=== PATIENT | female | born 1950 | race Caucasian/White ===

== ENCOUNTER 2020-07-04 06:45 | Outpatient (REF) | payer MEDICARE, OTHER, SELFPAY ==
[2020-07-04 11:38] LABS: Alanine Aminotransferase 24 U/L (0-31); Aspartate Amino Transferase 20 U/L (5-31); Cholesterol 218 mg/dL; HDL Cholesterol 52 mg/dL; LDL Cholesterol Calculated 135 mg/dl; Triglycerides 155 mg/dL
[2020-07-04 11:56] LABS: Anion Gap 16 (12-20); Blood Urea Nitrogen 23 mg/dL (9-16); Calcium 9.6 mg/dL (8.4-10.2); Carbon Dioxide 24 mmol/L (22-29); Chloride 103 mmol/L (96-108); Estimated Glomerular Filt Rate 37; Phosphorus 3.2 mg/dL (2.7-4.5); Potassium 4.6 mmol/l (3.3-5.1); Sodium 138 mmol/L (135-145)
[2020-07-04 13:11] LABS: Renal w Reflex Lab Use Only Order verified
== END 2020-07-04 06:46 | disposition home or self-care (01) ==
LOC: HO.HMGCLDS 06:45
PROVIDERS: PCP Internal Medicine; Visit Provider Internal Medicine Nephrology
DX: G89.29 Other chronic pain (principal); M79.10 Myalgia, unspecified site; E78.5 Hyperlipidemia, unspecified; I12.9 Hypertensive chronic kidney disease with stage 1 through stage 4 chronic kidney disease, or unspecified chronic kidney disease; N18.9 Chronic kidney disease, unspecified
CPT/HCPCS: 80051; 80061; 82310; 82550; 82565; 84100; 84450; 84460; 84520

== ENCOUNTER 2020-08-03 08:07 | Outpatient (REF) | payer MEDICARE, OTHER, SELFPAY ==
--- NOTE | 2020-08-03 08:11 | MM_ITS ---
EXAMINATION: MM SCREENING DIGITAL BREAST TOMOSYNTHESIS, BILATERAL CLINICAL INFORMATION: Screening. Asymptomatic. The lifetime risk of breast cancer based on the Tyrer-Cuzick Model is 3.5%. COMPARISON: Mammography: July 29, 2019 and studies dating back to July 17, 2011 TECHNIQUE: Digital breast tomosynthesis is performed in both the craniocaudal and mediolateral oblique views along with computer-aided detection (CAD). Synthesized 2D images are generated from the tomosynthesis. FINDINGS: There are scattered areas of fibroglandular density (ACR BI-RADS breast composition Category b). There are no significant masses, abnormal calcifications, or other abnormalities. MM/MM tomosynthesis screening BI IMPRESSION: There are no significant changes from prior study. ASSESSMENT: BI-RADS 1: Negative RECOMMENDATION: Routine annual mammography screening. This patient's information was entered into a reminder system with a target due date for their next mammogram.
== END 2020-08-03 08:08 | disposition home or self-care (01) ==
LOC: HO.MAMMO 08:07
PROVIDERS: Visit Provider Internal Medicine
DX: Z12.31 Encounter for screening mammogram for malignant neoplasm of breast (principal)
CPT/HCPCS: 77063; 77067

== ENCOUNTER 2020-08-17 06:33 | Day surgery (SDC) | payer MEDICARE, OTHER, SELFPAY ==
[2020-08-09 14:42] VITALS: BMI 28.0
[2020-08-16 09:26] VITALS: BMI 27.1
--- NOTE | 2020-08-16 09:55 | P.CONAN_ITS ---
Documented by User: Julia Pena 08/16/20 09:58 HPI - Anesthesia Eval Consult details Narrative: 70yo F for Colonoscopy PMFSH Past Medical History Medical History Acquired hypothyroidism Chronic kidney disease, stage III (moderate) Dyslipidemia Essential hypertension Lumbar degenerative disc disease Osteopenia of left hip Postmenopausal syndrome Surgical menopause Trigeminal neuralgia Uterine fibroid Family History Family History Father HTN (hypertension) Heart disease DDD (degenerative disc disease) Myocardial infarction Mother Diabetes mellitus Colon cancer Arthritis Hot flashes Daughter Papillary thyroid carcinoma Paternal Aunt CVD (cardiovascular disease) History of heart attack Son No problems noted. Daughter No problems noted. Brother No problems noted. Brother No problems noted. Brother No problems noted. Sister No problems noted. Sister No problems noted. Sister No problems noted. Sister No problems noted. Sister No problems noted. Surgical History Surgical History H/O total hysterectomy with bilateral salpingo-oophorectomy (BSO) History of back surgery History of deviated nasal septum Vocal cord cyst Social History Social History Alcohol intake: never Smoking Status: Never smoker Second Hand Smoke Exposure: No Use of substances other than those prescribed or required for medical reasons: No Advance Directives: No Advance Directives Information Provided: No Advance Directives on File: No Meds Allergies Allergy/AdvReac Type Severity Reaction Status Date / Time egg Allergy Intermediate + SKIN TEST Verified 07/11/20 08:06 milk [MILK] Allergy Unknown + SKIN TEST Verified 07/11/20 08:06 simvastatin AdvReac Unknown muscle pain Verified 07/11/20 08:06 ENVIRONMENTAL Allergy Intermediate HAYFEVER Uncoded 04/28/20 14:51 SENSATIVE TO MEDS AdvReac Unknown NAUSEA & Uncoded 04/28/20 14:51 VOMITING Home Medications Medication Instructions Recorded Confirmed Type cholecalciferol (vitamin D3) 25 25 mcg PO DAILY 07/11/20 08/09/20 History mcg (1,000 unit) capsule coenzyme Q10 100 mg capsule 100 mg PO DAILY 07/11/20 08/09/20 History flu vacc (66yr IM 07/11/20 07/11/20 History up)-MF59C(PF) 60 mcg(15 mcgx4)/0.5 mL IM syringe oxcarbazepine 150 mg tablet 150 mg PO DAILY 07/11/20 08/09/20 History Exam Exam Date and Time: August 16, 2020 0955 Height,Weight and Vital Signs: Height 5 ft 3 in Weight 69.4 kg Pertinent Lab Results Pertinent Lab Results: Laboratory Tests 02/03/20 07/04/20 14:29 07:07 WBC 5.6 Hgb 13.5 Hct 41.2 Plt Count 305 Sodium 138 Potassium 4.6 Chloride 103 Carbon Dioxide 24 BUN 23 H Creatinine 1.42 H Laboratory Tests 01/06/20 03/24/20 04/11/20 07:37 07:40 08:12 Creatinine 1.48 H 1.44 H 1.61 H 05/03/20 07/04/20 07:45 07:07 Creatinine 1.41 H 1.42 H Assessment and Plan Assessment Anesthesia Assessment: Chart Reviewed Documented by User: Chinyere Vazquez 08/17/20 07:14 [facility] Past Medical History Medical History Acquired hypothyroidism Chronic kidney disease, stage III (moderate) Dyslipidemia Essential hypertension Lumbar degenerative disc disease Osteopenia of left hip Postmenopausal syndrome Surgical menopause Trigeminal neuralgia Uterine fibroid Family History Family History Father HTN (hypertension) Heart disease DDD (degenerative disc disease) Myocardial infarction Mother Diabetes mellitus Colon cancer Arthritis Hot flashes Daughter Papillary thyroid carcinoma Paternal Aunt CVD (cardiovascular disease) History of heart attack Son No problems noted. Daughter No problems noted. Brother No problems noted. Brother No problems noted. Brother No problems noted. Sister No problems noted. Sister No problems noted. Sister No problems noted. Sister No problems noted. Sister No problems noted. Surgical History Surgical History H/O total hysterectomy with bilateral salpingo-oophorectomy (BSO) History of back surgery History of deviated nasal septum Vocal cord cyst Social History Social History Alcohol intake: never Smoking Status: Never smoker Second Hand Smoke Exposure: No Use of substances other than those prescribed or required for medical reasons: No Advance Directives: No Advance Directives Information Provided: No Advance Directives on File: No Meds Allergies Allergy/AdvReac Type Severity Reaction Status Date / Time egg Allergy Intermediate + SKIN TEST Verified 07/11/20 08:06 milk [MILK] Allergy Unknown + SKIN TEST Verified 07/11/20 08:06 simvastatin AdvReac Unknown muscle pain Verified 07/11/20 08:06 ENVIRONMENTAL Allergy Intermediate HAYFEVER Uncoded 04/28/20 14:51 SENSATIVE TO MEDS AdvReac Unknown NAUSEA & Uncoded 04/28/20 14:51 VOMITING Home Medications Medication Instructions Recorded Confirmed Type cholecalciferol (vitamin D3) 25 25 mcg PO DAILY 07/11/20 08/09/20 History mcg (1,000 unit) capsule coenzyme Q10 100 mg capsule 100 mg PO DAILY 07/11/20 08/09/20 History flu vacc 2020-21(66yr IM 07/11/20 07/11/20 History up)-MF59C(PF) 60 mcg(15 mcgx4)/0.5 mL IM syringe oxcarbazepine 150 mg tablet 150 mg PO DAILY 07/11/20 08/09/20 History Exam Airway Mallampati Class: II (Caps lataerally) TM Dist: >3cm Neck ROM: Full Heart: RRR Lungs: CTA bL Assessment and Plan Final Anesthetic Review NPO: Yes (Sip water with meds) ASA Class: III Final Preanesthetic Review: No Changes in Pt Med Stat and Consent Obtained/Reviewed Patient Risk: Intermediate Procedure Risk: Intermediate Anesthetic Plan Anesthetic Plan: MAC: Disposition: Standard PACU
[2020-08-17 07:12] VITALS: BP 170/82; PULSE 90; RESP 16; TEMP 36.2; O2SAT 98
[2020-08-17] MEDS: Lactated Ringers 1,000 ML 50 ML IVCONT (07:23)
[2020-08-17 08:25] VITALS: BP 118/69; PULSE 72; RESP 16; TEMP 37.1; O2SAT 98
--- NOTE | 2020-08-17 08:29 | PM.OP ---
Brief Operative Note Date of Service: 08/17/20 Pre-op diagnosis: Screening, History of tubular adenoma Post-op diagnosis: same Procedure: Colonoscopy to the cecum Surgeon: David Gr Anesthesia: MAC Estimated blood loss (mL): 0 Pathology: none sent Condition: stable Disposition: PACU
[2020-08-17 08:40] VITALS: BP 118/82; PULSE 73; RESP 18; O2SAT 100
--- NOTE | 2020-08-17 08:53 | OP_ITS ---
SURGEON: David Gr MD INDICATIONS: The patient presents for followup of personal history of tubular adenomas of the colon and colorectal cancer screening. Full consent was obtained from her for this, including risks of bleeding and perforation. PREOPERATIVE DIAGNOSIS: POSTOPERATIVE DIAGNOSIS: PROCEDURE PERFORMED: ESTIMATED BLOOD LOSS: COMPLICATIONS: ANESTHESIA: Monitored anesthesia care. ASSISTANTS: SPECIMENS: PROCEDURE: Colonoscopy to cecum. PREOPERATIVE DIAGNOSES: Colorectal cancer screening, personal history of tubular adenoma of the colon, and family history of colon cancer. POSTOPERATIVE DIAGNOSES: Colorectal cancer screening, personal history of tubular adenoma of the colon, and family history of colon cancer, diverticulosis and internal hemorrhoids. DESCRIPTION OF PROCEDURE: The patient was placed in the left lateral decubitus position. The digital rectal exam revealed no abnormalities other than some external hemorrhoids. The Olympus video pediatric colonoscope was entered into the rectum and advanced easily to the cecum. Once in the cecum, I did identify normal-appearing cecal pouch with appendiceal orifice and a normal-appearing ileocecal valve. There was transillumination of light deep in the right lower quadrant. The entire cecum and ileocecal valve appeared normal. The scope was then slowly withdrawn assessing all mucosal surfaces carefully. Preparation was excellent. I did not visualize any sign of polyps, colitis, nor angiodysplasia. There was a mild amount of sigmoid diverticulosis. In the rectum, scope was retroflexed visualizing internal hemorrhoids, but no other pathology. The rectal mucosa appeared normal. The scope was straightened and withdrawn from the patient. She tolerated procedure well and was returned to recovery area in stable condition. IMPRESSION: 1. Sigmoid diverticulosis. 2. Internal and external hemorrhoids. PLAN: Given her previous history, I would recommend a followup colonoscopy in 5 years for further screening. She will otherwise see me on a p.r.n. basis. MD DRAGAN Yen/OSIRIS / [id number]
[2020-08-17 08:55] VITALS: BP 108/81; PULSE 71; RESP 20; TEMP 37; O2SAT 100
--- NOTE | 2020-08-17 09:11 | HO.POSTANES ---
Post Anesthesia Evaluation Post Anesthesia Evaluation Vital Signs: Vital Signs Temp Pulse Resp BP Pulse Ox 08/17/20 08:55 98.6 F 71 20 108/81 100 08/17/20 08:40 73 18 118/82 100 08/17/20 08:25 98.7 F 72 16 118/69 98 08/17/20 07:12 97.1 F 90 16 170/82 H 98 Anesthesia: Monitored Mental Status: Awake Pain Control: Satisfactory Nausea/Vomiting: None Hydration: Adequate Anesthesia-Related Issues: No Anes. Related Issues
== END 2020-08-17 09:13 | disposition home or self-care (01) ==
PROVIDERS: PCP Internal Medicine; Visit Provider Internal Medicine
PROC: 0DJD8ZZ Inspection of Lower Intestinal Tract, Via Natural or Artificial Opening Endoscopic (ICD-10-PCS; CPT 45378; principal; 2020-08-17 07:30)
DX: Z12.11 Encounter for screening for malignant neoplasm of colon (principal); Z86.010 Personal history of colon polyps; Z80.0 Family history of malignant neoplasm of digestive organs; K57.30 Diverticulosis of large intestine without perforation or abscess without bleeding; K64.8 Other hemorrhoids; K64.4 Residual hemorrhoidal skin tags; I12.9 Hypertensive chronic kidney disease with stage 1 through stage 4 chronic kidney disease, or unspecified chronic kidney disease; N18.30 Chronic kidney disease, stage 3 unspecified; G50.0 Trigeminal neuralgia; Z79.899 Other long term (current) drug therapy
CPT/HCPCS: G0105

== ENCOUNTER 2020-09-20 07:35 | Outpatient (REF) | payer MEDICARE, OTHER, SELFPAY ==
[2020-09-20 12:03] LABS: Alanine Aminotransferase 19 U/L (0-31); Aspartate Amino Transferase 19 U/L (5-31); Cholesterol 240 mg/dL; HDL Cholesterol 53 mg/dL; LDL Cholesterol Calculated 154 mg/dl; Triglycerides 166 mg/dL
[2020-09-20 12:04] LABS: Anion Gap 15 (12-20); Blood Urea Nitrogen 26 mg/dL (9-16); Calcium 9.6 mg/dL (8.4-10.2); Carbon Dioxide 27 mmol/L (22-29); Chloride 102 mmol/L (96-108); Estimated Glomerular Filt Rate 40; Phosphorus 3.4 mg/dL (2.7-4.5); Potassium 4.6 mmol/L (3.3-5.1); Sodium 139 mmol/L (135-145)
[2020-09-20 12:10] LABS: Vitamin D 25-OH Total 31.4 ng/mL (>30)
[2020-09-20 13:14] LABS: Renal w Reflex Lab Use Only Order verified
== END 2020-09-20 07:36 | disposition home or self-care (01) ==
LOC: HO.HMGCLDS 07:35
PROVIDERS: PCP Internal Medicine; Visit Provider Internal Medicine Nephrology
DX: E78.5 Hyperlipidemia, unspecified (principal); I12.9 Hypertensive chronic kidney disease with stage 1 through stage 4 chronic kidney disease, or unspecified chronic kidney disease; N18.9 Chronic kidney disease, unspecified; E89.40 Asymptomatic postprocedural ovarian failure; M85.852 Other specified disorders of bone density and structure, left thigh
CPT/HCPCS: 36415; 80051; 80061; 82306; 82310; 82565; 84100; 84450; 84460; 84520

== ENCOUNTER 2020-10-10 11:19 | Emergency (ER) | payer MEDICARE, OTHER, SELFPAY ==
--- NOTE | ~2020-10-10 | XR_ITS ---
EXAMINATION: XR CHEST CLINICAL INFORMATION: Shortness of breath COMPARISON: Previous chest x-ray February 2020 TECHNIQUE: Frontal view of the chest was obtained. FINDINGS: No significant abnormality is noted involving the heart, lungs, mediastinum, bony thorax or soft tissues. XR/XR chest 1V IMPRESSION: Unremarkable examination.
[2020-10-10 11:48] VITALS: BP 140/79; PULSE 85; RESP 18; TEMP 36.7; O2SAT 98; BMI 27.8
--- NOTE | 2020-10-10 11:57 | ED.SOB ---
HPI - SOB/Dyspnea General Chief Complaint: Dyspnea Stated Complaint: SOB Time Seen by Provider: 10/10/20 11:56 Source: patient Mode of arrival: ambulatory Limitations: no limitations History of Present Illness HPI Narrative: Pleasant 70-year-old female presenting ambulatory with past medical history as noted below including history of dyslipidemia, hypertension, acquired hypothyroidism currently on levothyroxine 25 mcg daily, degenerative disc disease, trigeminal neuralgia with surgical history of hysterectomy, back surgery states she had COVID-19 last October and since has had some regulation of medical issues and recently over past several months she has had some dyspnea on exertion which is more pronounced over the past several days and overall muscle weakness. States he sometimes feels like she has stop speaking to catch her breath. There is no associated chest pain, fever, lower extremity swelling, cough. She does tell me that she has had evaluation for this through her primary care doctor as well as Cardiology and Neurology where she has had MRI of her brain for the weakness, echo which were unrevealing. States she knows this is related to her thyroid and would like levels checked. MD elicited complaint: shortness of breath Onset (ago): month(s) Timing: intermittent Severity: moderate Exacerbating factors: nothing Relieving factors: nothing Treatment prior to arrival: none Related Data Home Medications Medication Instructions Recorded Confirmed cholecalciferol (vitamin D3) 25 25 mcg PO DAILY 07/11/20 08/09/20 mcg (1,000 unit) capsule coenzyme Q10 100 mg capsule 100 mg PO DAILY 07/11/20 08/09/20 flu vacc 2020-21(65yr IM 07/11/20 07/11/20 up)-MF59C(PF) 60 mcg(15 mcgx4)/0.5 mL IM syringe oxcarbazepine 150 mg tablet 150 mg PO DAILY 07/11/20 08/09/20 Previous Rx's Medication Instructions Recorded estradiol 0.5 mg tablet 0.5 mg PO .three times a week 90 07/11/20 Days #36 tab levothyroxine 25 mcg tablet 25 mcg PO DAILY #90 tab 07/11/20 rosuvastatin 5 mg tablet 5 mg PO .twice a week 90 Days #24 07/11/20 tab Allergies Allergy/AdvReac Type Severity Reaction Status Date / Time egg Allergy Intermediate + SKIN TEST Verified 10/10/20 11:48 milk [MILK] Allergy Unknown + SKIN TEST Verified 10/10/20 11:48 simvastatin AdvReac Unknown muscle pain Verified 10/10/20 11:48 ENVIRONMENTAL Allergy Intermediate HAYFEVER Uncoded 04/28/20 14:51 SENSATIVE TO MEDS AdvReac Unknown NAUSEA & Uncoded 04/28/20 14:51 VOMITING Review of Systems Review of Systems: Constitutional: No Weight loss, No Fever, No Chills, No Night Sweats, No Fatigue, No Malaise ENT/Mouth: No Hearing loss, No Ear Pain, No Nasal Congestion, No Sinus Pain, No Hoarseness, No sore throat, No Rhinorrhea, No Swallowing Difficulty Eyes: No Eye Pain, No Swelling, No Redness, No Foreign Body, No Discharge, No Vision Changes Cardiovascular: No Chest Pain, No Edema, No Palpitations Respiratory: No Cough, No Sputum, No Wheezing Gastrointestinal: No Nausea, No Vomiting, No Diarrhea, No Constipation, No abdominal Pain, No Hematochezia, No Melena Genitourinary: no irregular bleeding, No Dysuria, No Urinary Frequency, No Hematuria, No Urinary Incontinence, No Urgency, No Flank Pain, No Urinary Flow Changes, No Hesitancy Musculoskeletal: No joint pain, No Myalgias, No Joint Swelling Skin: No Skin Lesions, No rash Neuro: No Weakness, No Numbness, No Paresthesias, No Loss of Consciousness, No Dizziness, No Headache Psych:No Social Issues Heme/Lymph: No Bruising, No Bleeding,No Lymphadenopathy Endocrine: No Polyuria, No Polydipsia, No Temperature Intolerance Yes all other systems are reviewed and are negative COUNT INCLUDES [facility] Past Medical History Medical History Acquired hypothyroidism Chronic kidney disease, stage III (moderate) Dyslipidemia Essential hypertension Lumbar degenerative disc disease Osteopenia of left hip Postmenopausal syndrome Surgical menopause Trigeminal neuralgia Uterine fibroid Surgical History H/O total hysterectomy with bilateral salpingo-oophorectomy (BSO) History of back surgery History of deviated nasal septum Vocal cord cyst Family History Family History Father HTN (hypertension) Heart disease DDD (degenerative disc disease) Myocardial infarction Mother Diabetes mellitus Colon cancer Arthritis Hot flashes Daughter Papillary thyroid carcinoma Paternal Aunt CVD (cardiovascular disease) History of heart attack Son No problems noted. Daughter No problems noted. Brother No problems noted. Brother No problems noted. Brother No problems noted. Sister No problems noted. Sister No problems noted. Sister No problems noted. Sister No problems noted. Sister No problems noted. Social History Social History Alcohol intake: never Smoking Status: Never smoker Second Hand Smoke Exposure: No Advance Directives: No Advance Directives Information Provided: No Physical Exam Vital Signs: Vital Signs: Last Vital Signs Temp 98.1 F 10/10/20 11:48 Pulse 74 10/10/20 13:18 Resp 16 10/10/20 13:18 BP 122/61 10/10/20 13:18 Pulse Ox 98 10/10/20 13:18 Body Mass Index 27.8 Reviewed Const: Other: Found 70-year-old female sitting up in bed on her cell phone greeting me in a pleasant demeanor in no acute distress. General: cooperative and healthy appearing; No acute distress or intoxicated appearing Nutritional Appearance: average body habitus Orientation/consciousness: patient oriented x3 HENMT: Head: Yes normal to inspection Ears: hearing grossly normal bilaterally Eyes: General: appearance normal, both eyes and all related structures Visual Krishnan: normal visual krishnan by confrontation Neck: Neck: Yes normal visual inspection, No positive Brudzinski's sign, No positive Kernig's sign and No tender Thyroid: Thyroid normal Chest: Chest palpation & inspection: normal inspection of the chest Resp: Effort & Inspection: normal respiratory effort Auscultation: clear to auscultation bilaterally Cardio: Jugular venous distension: no JVD Rate: regular rate Rhythm: regular rhythm Heart sounds: S1 normal heart sound present and S2 normal heart sound present GI: Inspection: Yes normal to inspection Percussion: Yes normal to percussion Auscultation: normal bowel sounds : General: Yes no CVA tenderness Back/Spine/Pelvis: Back: no CVA tenderness Skin: General skin exam: no rashes or lesions noted Neuro: General: patient oriented x3 Extrem: General: Yes normal to inspection NIH Stroke Scale Internal: Initial- Upon Arrival Level of Consciousness: Alert Level of Consciousness Questions: Answers both questions correctly Level of Consciousness Commands: Performs both tasks correctly Best Gaze: Normal Visual: No visual loss Facial Palsy: Normal Motor Arm (Right): No drift Motor Arm (Left): No drift Motor Leg (Right): No drift Motor Leg (Left): No drift Limb Ataxia: Absent Sensory: Normal Best Language: No aphasia Dysarthia: Normal Extinction and Inattention: No abnormality Score: 0 Course Course Course Narrative: MDM - SOB/Dyspnea MDM Narrative Medical decision making narrative: In review 70-year-old female with above history presenting with a constellation of symptoms as noted HPI she has been relatively stable here workup shows slightly elevated renal function given a L of fluids otherwise overall reassuring. Age adjusted D-dimer negative, cardiac enzyme negative, EKG nondiagnostic checks and remarkable. Her TSH is 0.2 to and her T4 is 1.0 does subclinical however given her symptoms case discussed with attending agreeable may be beneficial to stopping this and close follow-up. She had to get out of bed ambulatory with steady gait. No overt signs of hypoxia or tachycardia or MARSH. Differential diagnosis include but not limited to reactive airway disease, pneumonia, COVID-19, electrolyte derangement, CVA less likely, MS, [place]. Medical Records Attestation: I reviewed the patient's medical records. Lab Data Attestation: I reviewed the patient's lab results. Result diagrams: 10/10/20 12:56 03 12:56 Labs: Lab Results 10/10/20 10/10/20 10/10/20 Range/Units 12:50 12:56 12:56 WBC (4.8-10.8) X10*3/uL RBC (4.20-5.50) X10*6/uL Hgb (12.0-16.0) g/dl Hct (37-47) % MCV (80-98) fL MCH (27.0-33.0) pg MCHC (31.0-35.0) g/dl RDW (11.0-16.0) % Plt Count (160-400) X10*3/uL MPV (9.4-12.3) fL Immature Gran % (Auto) (0.0-0.4) % Neut % (Auto) (45-73) % Lymph % (Auto) (20-40) % [place] % (Auto) (2-11) % Eos % (Auto) (0-4) % Baso % (Auto) (0-2) % Lymph # (Auto) (1.2-4.9) X10*3/uL [place] # (Auto) (0.1-1.2) X10*3/uL Eos # (Auto) (0.0-0.4) X10*3/uL Baso # (Auto) (0.0-0.2) X10*3/uL Abs Immat Gran (auto) (0.00-0.03) X10*3/uL Absolute Neuts (auto) (2.0-8.3) X10*3/uL Absolute Nucleated RBC (0.0-0.012) X10*3/uL Nucleated RBC % (auto) (0.0-0.2) /100WBC Smear Tech's Comments ESR 15 (0-20) MM/HR PT (10.8-13.0) SEC INR (0.9-1.1) APTT (24.1-38.0) SEC D-Dimer NG/ML Sodium 136 (135-145) mmol/L Potassium 4.0 (3.3-5.1) mmol/L Chloride 104 (96-108) mmol/L Carbon Dioxide 22 (22-29) mmol/L Anion Gap 14 (12-20) BUN 25 H (9-16) mg/dL Creatinine 1.41 H (0.5-1.4) mg/dL Estim Creat Clear Calc 35.6 Estimated GFR 37 Random Glucose 94 (60-115) mg/dL Lactic Acid (0.5-2.0) mmol/L Calcium 9.1 (8.4-10.2) mg/dL Total Bilirubin 0.5 (0.0-1.0) mg/dL AST 25 (5-31) U/L ALT 23 (0-31) U/L Alkaline Phosphatase 65 (39-117) U/L Troponin I High Sens (<3.5-17.0) ng/L C-Reactive Protein 4.47 H (< or = 0.50) mg/dL B-Natriuretic Peptide (<100) pg/mL Total Protein 6.8 (6.5-8.0) g/dL Albumin 4.1 (3.5-5.0) g/dL TSH 0.21 L (0.32-4.0) uIU/mL Free T4 (0.71-1.85) ng/dL Urine Color YELLOW Urine Appearance CLEAR Urine pH 6.0 (5.0-8.0) Ur Specific [place] 1.020 (1.005-1.025) Urine Protein NEG (NEG-TRACE) MG/DL Urine Glucose (UA) NEG (NEG) MG/DL Urine Ketones NEG (NEG) MG/DL Urine Blood NEG (NEG) Urine Nitrite NEG (NEG) Ur Leukocyte Esterase NEG (NEG) Urine RBC 0 (0) /HPF Urine WBC 0-2 (0-4) /HPF Ur Squamous Epith Cells 1+ /LPF Urine Bacteria NONE /LPF 10/10/20 10/10/20 10/10/20 Range/Units 12:56 12:56 12:56 WBC 3.4 L (4.8-10.8) X10*3/uL RBC 4.44 (4.20-5.50) X10*6/uL Hgb 13.5 (12.0-16.0) g/dl Hct 39.8 (37-47) % MCV 89.6 (80-98) fL MCH 30.4 (27.0-33.0) pg MCHC 33.9 (31.0-35.0) g/dl RDW 13.0 (11.0-16.0) % Plt Count 213 (160-400) X10*3/uL MPV 9.8 (9.4-12.3) fL Immature Gran % (Auto) 0.3 (0.0-0.4) % Neut % (Auto) 65.4 (45-73) % Lymph % (Auto) 18.9 L (20-40) % [place] % (Auto) 13.3 H (2-11) % Eos % (Auto) 1.8 (0-4) % Baso % (Auto) 0.3 (0-2) % Lymph # (Auto) 0.6 L (1.2-4.9) X10*3/uL [place] # (Auto) 0.5 (0.1-1.2) X10*3/uL Eos # (Auto) 0.1 (0.0-0.4) X10*3/uL Baso # (Auto) 0.0 (0.0-0.2) X10*3/uL Abs Immat Gran (auto) 0.01 (0.00-0.03) X10*3/uL Absolute Neuts (auto) 2.2 (2.0-8.3) X10*3/uL Absolute Nucleated RBC 0.000 (0.0-0.012) X10*3/uL Nucleated RBC % (auto) 0.0 (0.0-0.2) /100WBC Smear Tech's Comments VERIFIED ESR (0-20) MM/HR PT 12.8 (10.8-13.0) SEC INR 1.1 (0.9-1.1) APTT 30.0 (24.1-38.0) SEC D-Dimer 214 NG/ML Sodium (135-145) mmol/L Potassium (3.3-5.1) mmol/L Chloride (96-108) mmol/L Carbon Dioxide (22-29) mmol/L Anion Gap (12-20) BUN (9-16) mg/dL Creatinine (0.5-1.4) mg/dL Estim Creat Clear Calc Estimated GFR Random Glucose (60-115) mg/dL Lactic Acid (0.5-2.0) mmol/L Calcium (8.4-10.2) mg/dL Total Bilirubin (0.0-1.0) mg/dL AST (5-31) U/L ALT (0-31) U/L Alkaline Phosphatase (39-117) U/L Troponin I High Sens (<3.5-17.0) ng/L C-Reactive Protein (< or = 0.50) mg/dL B-Natriuretic Peptide (<100) pg/mL Total Protein (6.5-8.0) g/dL Albumin (3.5-5.0) g/dL TSH 0.22 L (0.32-4.0) uIU/mL Free T4 1.10 (0.71-1.85) ng/dL Urine Color Urine Appearance Urine pH (5.0-8.0) Ur Specific [place] (1.005-1.025) Urine Protein (NEG-TRACE) MG/DL Urine Glucose (UA) (NEG) MG/DL Urine Ketones (NEG) MG/DL Urine Blood (NEG) Urine Nitrite (NEG) Ur Leukocyte Esterase (NEG) Urine RBC (0) /HPF Urine WBC (0-4) /HPF Ur Squamous Epith Cells /LPF Urine Bacteria /LPF 10/10/20 10/10/20 10/10/20 Range/Units 12:56 12:56 12:56 WBC (4.8-10.8) X10*3/uL RBC (4.20-5.50) X10*6/uL Hgb (12.0-16.0) g/dl Hct (37-47) % MCV (80-98) fL MCH (27.0-33.0) pg MCHC (31.0-35.0) g/dl RDW (11.0-16.0) % Plt Count (160-400) X10*3/uL MPV (9.4-12.3) fL Immature Gran % (Auto) (0.0-0.4) % Neut % (Auto) (45-73) % Lymph % (Auto) (20-40) % [place] % (Auto) (2-11) % Eos % (Auto) (0-4) % Baso % (Auto) (0-2) % Lymph # (Auto) (1.2-4.9) X10*3/uL [place] # (Auto) (0.1-1.2) X10*3/uL Eos # (Auto) (0.0-0.4) X10*3/uL Baso # (Auto) (0.0-0.2) X10*3/uL Abs Immat Gran (auto) (0.00-0.03) X10*3/uL Absolute Neuts (auto) (2.0-8.3) X10*3/uL Absolute Nucleated RBC (0.0-0.012) X10*3/uL Nucleated RBC % (auto) (0.0-0.2) /100WBC Smear Tech's Comments ESR (0-20) MM/HR PT (10.8-13.0) SEC INR (0.9-1.1) APTT (24.1-38.0) SEC D-Dimer NG/ML Sodium (135-145) mmol/L Potassium (3.3-5.1) mmol/L Chloride (96-108) mmol/L Carbon Dioxide (22-29) mmol/L Anion Gap (12-20) BUN (9-16) mg/dL Creatinine (0.5-1.4) mg/dL Estim Creat Clear Calc Estimated GFR Random Glucose (60-115) mg/dL Lactic Acid 0.9 (0.5-2.0) mmol/L Calcium (8.4-10.2) mg/dL Total Bilirubin (0.0-1.0) mg/dL AST (5-31) U/L ALT (0-31) U/L Alkaline Phosphatase (39-117) U/L Troponin I High Sens < 3.5 (<3.5-17.0) ng/L C-Reactive Protein (< or = 0.50) mg/dL B-Natriuretic Peptide < 10 (<100) pg/mL Total Protein (6.5-8.0) g/dL Albumin (3.5-5.0) g/dL TSH (0.32-4.0) uIU/mL Free T4 (0.71-1.85) ng/dL Urine Color Urine Appearance Urine pH (5.0-8.0) Ur Specific [place] (1.005-1.025) Urine Protein (NEG-TRACE) MG/DL Urine Glucose (UA) (NEG) MG/DL Urine Ketones (NEG) MG/DL Urine Blood (NEG) Urine Nitrite (NEG) Ur Leukocyte Esterase (NEG) Urine RBC (0) /HPF Urine WBC (0-4) /HPF Ur Squamous Epith Cells /LPF Urine Bacteria /LPF Imaging Data Chest x-ray: Radiologist's impression: [address] [id number] ReportSigned Patient: Annette Winslow EMR#: [id number]: 1Acct:[id number]/Sex: 70 / FADM Date: 10/10/20Loc: [facility]: Ordering Physician: Gunnar Dillon NP Date of Service: 10/10/20 Procedure(s): XR chest 1V Accession Number(s): [id number] cc: Gunnar Dillon OFFICE SUPPORT CLERK~ EXAMINATION: XR CHEST CLINICAL INFORMATION: Shortness of breath COMPARISON: Previous chest x-ray February 2020 TECHNIQUE: Frontal view of the chest was obtained. FINDINGS: No significant abnormality is noted involving the heart, lungs, mediastinum, bony thorax or soft tissues. XR/XR chest 1V IMPRESSION: Unremarkable examination. Dictated By:DALE ORELLANA MDSigned By:<Electronically signed by DALE ORELLANA MD in OV>10/10/20 1232 DD/ 1216TD/TT: Forest Ecology Professor: CAMPBELL ECG Data Interpretation: Normal sinus rhythm with PVC Rate [address] segment changes No previous Discharge Plan Discharge Clinical Impression: Abnormal serum thyroid stimulating hormone (TSH) level, Weakness Patient Disposition: Home, Self-Care Additional Instructions: There is no clear evidence for cause of your symptoms based on your workup today Please stop taking levothyroxine this may help Drink plenty of fluids Follow-up with your primary care doctor and kidney doctor as planned If symptoms continue you may be beneficial to see a neurologist as discussed Return if any concerns or worsening symptoms Thank you Prescriptions: No Action oxcarbazepine 150 mg tablet 150 mg PO DAILY RF: 0 Fluad Quad (65y up)(PF) 60 mcg (15 mcg x 4)/0.5 mL syringe IM RF: 0 cholecalciferol (vitamin D3) 25 mcg (1,000 unit) capsule 25 mcg PO DAILY RF: 0 coenzyme Q10 [CoQ-10] 100 mg capsule 100 mg PO DAILY RF: 0 levothyroxine 25 mcg tablet 25 mcg PO DAILY Qty: 90 RF: 2 estradiol 0.5 mg tablet 0.5 mg PO .three times a week 90 Days Qty: 36 RF: 2 rosuvastatin 5 mg tablet 5 mg PO .twice a week 90 Days Qty: 24 RF: 2 Referrals: Deedee Monaco MD [Primary Care Provider] - 2 days
--- NOTE | 2020-10-10 12:16 | ECG_ITS ---
Test Reason : SOB Blood Pressure : / mmHG Vent. Rate : 075 BPM Atrial Rate : 075 BPM P-R Int : 116 ms QRS Dur : 072 ms QT Int : 394 ms P-R-T Axes : 069 048 067 degrees QTc Int : 439 ms Sinus rhythm with Premature atrial complexes with Aberrant conduction Borderline ECG No previous ECGs available Referred By: Gunnar Dillon Electronically Signed By:CARLOS ALBERTO MUNGUIA
[2020-10-10 13:16] LABS: Basophils Percent Auto 0.3 % (0-2); Eosinophils Absolute Auto 0.1 X10*3/uL (0.0-0.4); Eosinophils Percent Auto 1.8 % (0-4); Hematocrit 39.8 % (37-47); Hemoglobin 13.5 g/dl (12.0-16.0); Imm Gran Abs Auto 0.01 X10*3/uL (0.00-0.03); Imm Gran Pct Auto 0.3 % (0.0-0.4); Lymphocytes Absolute Auto 0.6 X10*3/uL (1.2-4.9); Lymphocytes Percent Auto 18.9 % (20-40); MANUAL DIFF FLAG SCAN; Mean Corpuscular HGB Conc 33.9 g/dl (31.0-35.0); Mean Corpuscular Hemoglobin 30.4 pg (27.0-33.0); Mean Corpuscular Volume 89.6 fL (80-98); Mean Platelet Volume 9.8 fL (9.4-12.3); Monocytes Absolute Auto 0.5 X10*3/uL (0.1-1.2); Monocytes Percent Auto 13.3 % (2-11); Neutrophils Absolute Auto 2.2 X10*3/uL (2.0-8.3); Neutrophils Percent Auto 65.4 % (45-73); Platelet Count 213 X10*3/uL (160-400); Red Blood Count 4.44 X10*6/uL (4.20-5.50); SCAN SMEAR FLAG 1; White Blood Count 3.4 X10*3/uL (4.8-10.8)
[2020-10-10 13:18] VITALS: BP 122/61; PULSE 74; RESP 16; O2SAT 98
[2020-10-10 13:20] LABS: Glucose Urine UA NEG (NEG); Leukocyte Esterase Urine NEG (NEG); Nitrite Urine NEG (NEG); Urine Blood NEG (NEG); Urine Ketones NEG (NEG); Urine Protein NEG (NEG-TRACE)
[2020-10-10 13:21] LABS: Appearance Urine CLEAR; Color Urine YELLOW
[2020-10-10 13:21] LABS: INTERNATIONAL NORM RATIO 1.1 (0.9-1.1); Prothrombin Time 12.8 SEC (10.8-13.0)
[2020-10-10 13:24] LABS: D Dimer 214 NG/ML
[2020-10-10 13:31] LABS: Lactic Acid 0.9 mmol/L (0.5-2.0)
[2020-10-10 13:38] LABS: Alanine Aminotransferase 23 U/L (0-31); Albumin Level 4.1 g/dL (3.5-5.0); Alkaline Phosphatase 65 U/L (39-117); Anion Gap 14 (12-20); Aspartate Amino Transferase 25 U/L (5-31); Bilirubin Total 0.5 mg/dL (0.0-1.0); Blood Urea Nitrogen 25 mg/dL (9-16); C Reactive Protein 4.47 mg/dL (< or = 0.50); Calcium 9.1 mg/dL (8.4-10.2); Carbon Dioxide 22 mmol/L (22-29); Chloride 104 mmol/L (96-108); Creatinine Clr Calc Pharmacy 35.6; Estimated Glomerular Filt Rate 37; Glucose Random 94 mg/dL (60-115); Sodium 136 mmol/L (135-145); Total Protein 6.8 g/dL (6.5-8.0)
[2020-10-10 13:40] LABS: B Type Natriuretic Peptide < 10 pg/mL (<100); Troponin-I High Sensitivity < 3.5 ng/L (<3.5-17.0)
[2020-10-10 13:40] LABS: RBC Urine 0 /HPF (0); Squamous Epithelial Cell Urine 1+ /LPF; WBC Urine 0-2 /HPF (0-4)
[2020-10-10 13:57] LABS: TSH reflex Free T4 0.22 uIU/mL (0.32-4.0)
[2020-10-10 13:58] LABS: Thyroid Stimulating Hormone 0.21 uIU/mL (0.32-4.0)
[2020-10-10 14:08] LABS: SLIDE REVIEW VERIFIED
[2020-10-10 14:46] LABS: Erythrocyte Sedimentation Rate 15 MM/HR (0-20)
[2020-10-10] MEDS: 0.9 % Sodium Chloride 1,000 ML 999 ML IV (16:51)
== END 2020-10-10 18:16 | disposition home or self-care (01) ==
PROVIDERS: Nurse Practitioner Primary Care; Emergency Provider Emergency Medicine; PCP Internal Medicine
DX: R94.6 Abnormal results of thyroid function studies (principal); R53.1 Weakness; I12.9 Hypertensive chronic kidney disease with stage 1 through stage 4 chronic kidney disease, or unspecified chronic kidney disease; N18.30 Chronic kidney disease, stage 3 unspecified; E03.9 Hypothyroidism, unspecified; E78.5 Hyperlipidemia, unspecified; Z86.16 Personal history of COVID-19
CPT/HCPCS: 36415; 71045; 80053; 81001; 83605; 83880; 84439; 84443; 84484; 85025; 85379; 85610; 85652; 85730; 86140; 93005; 96360; 99283; 99284

== ENCOUNTER → 2020-11-24 07:18 | Outpatient (REF) | payer MEDICARE, OTHER, SELFPAY ==
--- NOTE | 2020-11-24 07:42 | ECG_ITS ---
Test Reason : Z01.818 Blood Pressure : / mmHG Vent. Rate : 076 BPM Atrial Rate : 076 BPM P-R Int : 118 ms QRS Dur : 076 ms QT Int : 380 ms P-R-T Axes : 067 044 061 degrees QTc Int : 427 ms Normal sinus rhythm Low voltage QRS Borderline ECG When compared with ECG of 10-OCT-2020 12:46, No significant changes seen Referred By: Deedee Monaco Electronically Signed By:CARLOS ALBERTO MUNGUIA
[2020-11-24 08:22] LABS: MANUAL DIFF FLAG NO
[2020-11-24 08:34] LABS: Basophils Absolute Auto 0.1 X10*3/uL (0.0-0.2); Basophils Percent Auto 1.3 % (0-2); Hematocrit 41.5 % (37-47); Hemoglobin 13.7 g/dl (12.0-16.0); Imm Gran Abs Auto 0.01 X10*3/uL (0.00-0.03); Imm Gran Pct Auto 0.3 % (0.0-0.4); Lymphocytes Absolute Auto 1.2 X10*3/uL (1.2-4.9); Mean Platelet Volume 10.3 fL (9.4-12.3); Monocytes Absolute Auto 0.6 X10*3/uL (0.1-1.2); Monocytes Percent Auto 14.4 % (2-11); Platelet Count 281 X10*3/uL (160-400); Red Blood Count 4.56 X10*6/uL (4.20-5.50); Red Cell Distribution Width 12.9 % (11.0-16.0); White Blood Count 3.8 X10*3/uL (4.8-10.8)
[2020-11-24 08:35] LABS: Partial Thromboplastin Time 33.7 SEC (24.1-38.0)
[2020-11-24 08:43] LABS: Anion Gap 14 (12-20); Blood Urea Nitrogen 18 mg/dL (9-16); Calcium 9.8 mg/dL (8.4-10.2); Carbon Dioxide 25 mmol/L (22-29); Chloride 101 mmol/L (96-108); Estimated Glomerular Filt Rate 44; Glucose Fasting 96 mg/dL (60-99); Potassium 4.2 mmol/L (3.3-5.1); Sodium 136 mmol/L (135-145)
== END ==
LOC: HO.CARD 07:18
PROVIDERS: PCP Internal Medicine; Visit Provider Internal Medicine
DX: Z01.818 Encounter for other preprocedural examination (principal); I12.9 Hypertensive chronic kidney disease with stage 1 through stage 4 chronic kidney disease, or unspecified chronic kidney disease; N18.30 Chronic kidney disease, stage 3 unspecified
CPT/HCPCS: 36415; 80048; 85025; 85610; 85730; 93005

== ENCOUNTER 2020-11-24 08:03 | Outpatient (REF) | payer MEDICARE, OTHER, SELFPAY ==
[2020-11-24 08:41] LABS: COVID-19 Test Negative (Negative); IDNOW Serial# 55D5AD1C
== END 2020-11-24 08:04 | disposition home or self-care (01) ==
LOC: HO.LAB 08:03
PROVIDERS: Visit Provider Internal Medicine
DX: Z20.822 Contact with and (suspected) exposure to COVID-19 (principal)
CPT/HCPCS: 36415; 87635; C9803

== ENCOUNTER 2021-01-10 08:43 | Outpatient (REF) | payer MEDICARE, OTHER, SELFPAY ==
[2021-01-10 12:07] LABS: Cholesterol 212 mg/dL; HDL Cholesterol 55 mg/dL; LDL Cholesterol Calculated 120 mg/dl; Triglycerides 188 mg/dL
[2021-01-10 12:29] LABS: Free T4 (Free Thyroxine) 0.93 ng/dL (0.71-1.85); Thyroid Stimulating Hormone 0.64 uIU/mL (0.32-4.0)
== END 2021-01-10 08:44 | disposition home or self-care (01) ==
LOC: HO.HMGCLDS 08:43
PROVIDERS: PCP Internal Medicine; Visit Provider Internal Medicine
DX: E78.5 Hyperlipidemia, unspecified (principal); E03.9 Hypothyroidism, unspecified
CPT/HCPCS: 36415; 80061; 84439; 84443

== ENCOUNTER 2021-02-10 14:13 | Outpatient (REF) | payer MEDICARE, OTHER, SELFPAY ==
--- NOTE | ~2021-02-10 | US_ITS ---
EXAMINATION: US THYROID CLINICAL INFORMATION: Nontoxic multinodular goiter. COMPARISON: Ultrasound soft tissue head/neck thyroid dated 01/13/2020. TECHNIQUE: Linear transducer grayscale and color Doppler examination with attention to the region of the thyroid. FINDINGS: SIZE: Measurements of the thyroid lobes and nodules are given in sagittal, anteroposterior and transverse dimensions respectively. Right Thyroid Lobe: 6.0 x 1.9 x 1.6 cm, volume 9.4 mL. Previously 6.0 x 1.7 x 1.9 cm, volume 10.2 mL. Parenchyma: The gland echotexture is heterogeneous. Thyroid vascularity is increased. Left Thyroid Lobe: Not visualized. Isthmus: 0.4 cm in maximum AP dimension. Previously 0.2 cm. Estimated total number of nodules greater than or equal to 1 cm: 3. Engineer And Geologist nodules are described as follows: 1. Location: Right superior. Size: 0.9 x 0.6 x 0.1 cm, volume 0.28 mL. Previously: 0.9 x 0.7 x 0.9 cm, volume 0.29 mL. Nodule characteristics: Composition: Spongiform (0). Echogenicity: Anechoic (0). Shape: Not taller than wide (0). Margins: Smooth (0). Echogenic Foci: None (0). ACR TI-RADS total points: 0 ACR TI-RADS category: 1 Significant change in size (>/= 20% in 2 dimensions and minimal increase of 2 mm or 50% or greater increase in volume): Change in features: Change in ACR TI-RADS risk category: 2. Location: Right superior. Size: 0.73 x 0.30 x 0.64 cm, volume 0.07 mL. Previously: Not seen on the previous study. Nodule characteristics: Composition: Cystic(0). ACR TI-RADS total points: 0 ACR TI-RADS category: 1 3. Location: Right mid. Size: 2.1 x 1.5 x 1.4 cm, volume 2.3 mL. Previously: Previously measured as 2 nodules. By my measurements, this measured 2.4 x 1.3 x 1.3 cm and does not appear appreciably changed. Nodule characteristics: Composition: Mixed cystic and solid (1). Echogenicity: Hypoechoic (2). Shape: Not taller than wide (0). Margins: Smooth (0). Echogenic Foci: Punctate echogenic foci (3). ACR TI-RADS total points: 6 ACR TI-RADS category: 4 4. Location: Right inferior. Size: 2.2 x 1.0 x 1.2 cm, volume 1.3 mL. Previously: 1.7 x 0.8 x 1.1 cm, volume 0.78 mL. Nodule characteristics: Composition: Mixed cystic and solid (1). Echogenicity: Hypoechoic (2). Shape: Not taller than wide (0). Margins: Smooth (0). Echogenic Foci: Punctate echogenic foci (3). ACR TI-RADS total points: 6 ACR TI-RADS category: 4 Significant change in size (>/= 20% in 2 dimensions and minimal increase of 2 mm or 50% or greater increase in volume): Change in features: Change in ACR TI-RADS risk category: NODES: There is a small left cervical lymph node. This measures 1.1 x 0.4 x 0.6 cm in dimension. This is normal in size and demonstrates normal ultrasound morphology and flow. This is unchanged from previous exam. US/US thyroid IMPRESSION: Heterogeneous right lobe with multiple nodules. There is interval increase in the sagittal dimension of the nodule in the inferior right lobe. This may be due to interobserver variation of nodule margin. ACR TI-RADS RECOMMENDATION REFERENCE: Ultrasound-guided fine-needle aspiration, followup ultrasound, no further follow up. * TR1 (0 point) and TR 2 (2 points): No FNA or follow up * TR3 (3 points): FNA if more than or equal to 2.5 cm in maximum dimension, followup ultrasound in 1, 3 and 5 years if 1.5 to 2.4 cm in maximum dimension. * TR4 (4-6 points): FNA if more than or equal to 1.5 cm in maximum dimension, followup ultrasound in 1, 2, 3 and 5 years if 1 to 1.4 cm in maximum dimension. * TR5 (more than or equal to 7 points): FNA if more than or equal to 1 cm in maximum dimension, followup ultrasound every year for 5 years if 0.5 to 0.9 cm in maximum dimension. * TR3, TR4 or TR5 nodules that are below the size threshold for follow up receive no follow up.
== END 2021-02-10 14:14 | disposition home or self-care (01) ==
LOC: HO.HMGCX 14:13
PROVIDERS: Visit Provider Internal Medicine Endocrinology, Diabetes & Metabolism
DX: E04.2 Nontoxic multinodular goiter (principal)
CPT/HCPCS: 76536

== ENCOUNTER → 2021-02-28 07:22 | Outpatient (BNVA) | payer MEDICARE, OTHER, SELFPAY | PROVIDERS: PCP Internal Medicine; Visit Provider Internal Medicine Endocrinology, Diabetes & Metabolism | DX: E04.2 Nontoxic multinodular goiter (principal) | CPT/HCPCS: 99212 ==

== ENCOUNTER 2021-03-07 09:55 | Outpatient (REF) | payer MEDICARE, OTHER, SELFPAY ==
[2021-03-07 11:17] LABS: MANUAL DIFF FLAG NO
[2021-03-07 11:26] LABS: Basophils Percent Auto 0.7 % (0-2); Eosinophils Percent Auto 0.7 % (0-4); Hematocrit 39.6 % (37-47); Hemoglobin 14.1 g/dl (12.0-16.0); Imm Gran Abs Auto 0.01 X10*3/uL (0.00-0.03); Imm Gran Pct Auto 0.2 % (0.0-0.4); Lymphocytes Absolute Auto 0.7 X10*3/uL (1.2-4.9); Mean Corpuscular HGB Conc 35.6 g/dl (31.0-35.0); Mean Corpuscular Hemoglobin 30.3 pg (27.0-33.0); Mean Corpuscular Volume 85.2 fL (80-98); Mean Platelet Volume 9.6 fL (9.4-12.3); Monocytes Absolute Auto 0.6 X10*3/uL (0.1-1.2); Monocytes Percent Auto 14.3 % (2-11); Neutrophils Absolute Auto 2.7 X10*3/uL (2.0-8.3); Neutrophils Percent Auto 67.1 % (45-73); Platelet Count 323 X10*3/uL (160-400); Red Blood Count 4.65 X10*6/uL (4.20-5.50); Red Cell Distribution Width 12.3 % (11.0-16.0); White Blood Count 4.1 X10*3/uL (4.8-10.8)
[2021-03-07 12:16] LABS: Alanine Aminotransferase 20 U/L (0-31); Albumin Level 4.7 g/dL (3.5-5.0); Alkaline Phosphatase 79 U/L (39-117); Aspartate Amino Transferase 25 U/L (5-31); Bilirubin Total 0.7 mg/dL (0.0-1.0); Blood Urea Nitrogen 16 mg/dL (9-16); Calcium 9.6 mg/dL (8.4-10.2); Estimated Glomerular Filt Rate 43; Glucose Random 96 mg/dL (60-115); Total Protein 7.8 g/dL (6.5-8.0)
[2021-03-07 12:28] LABS: TSH reflex Free T4 0.96 uIU/mL (0.32-4.0); Vitamin D 25-OH Total 34.7 ng/mL (>30)
[2021-03-07 13:18] LABS: Folate 7.9 ng/mL (> or = 4.0); Vitamin B12 381 pg/mL (200-900)
[2021-03-07 13:44] LABS: Anion Gap 15 (12-20); Carbon Dioxide 23 mmol/L (22-29); Chloride 87 mmol/L (96-108); Potassium 4.6 mmol/L (3.3-5.1)
[2021-03-07 13:48] LABS: Sodium 120 mmol/L (135-145)
== END 2021-03-07 09:56 | disposition home or self-care (01) ==
LOC: HO.HMGCLDS 09:55
PROVIDERS: PCP Internal Medicine; Visit Provider Nurse Practitioner Family
DX: R25.2 Cramp and spasm (principal)
CPT/HCPCS: 36415; 80053; 82306; 82607; 82746; 84443; 85025

== ENCOUNTER 2021-03-07 14:54 | Inpatient (IN) | payer MEDICARE, OTHER, SELFPAY ==
[2021-03-07 15:35] VITALS: BP 149/88; PULSE 80; RESP 18; TEMP 36.7; O2SAT 98; BMI 27.4
--- NOTE | 2021-03-07 15:44 | PC.NURSE ---
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 Pt is alert, oriented, and only c/o muscle cramping at this time. No other obvious neuro deficits.
[2021-03-07 17:30] LABS: MANUAL DIFF FLAG NO
[2021-03-07 17:31] LABS: Basophils Percent Auto 0.6 % (0-2); Eosinophils Percent Auto 0.2 % (0-4); Hematocrit 40.5 % (37-47); Hemoglobin 14.3 g/dl (12.0-16.0); Imm Gran Abs Auto 0.01 X10*3/uL (0.00-0.03); Imm Gran Pct Auto 0.2 % (0.0-0.4); Lymphocytes Absolute Auto 1.1 X10*3/uL (1.2-4.9); Lymphocytes Percent Auto 21.9 % (20-40); Mean Corpuscular HGB Conc 35.3 g/dl (31.0-35.0); Mean Corpuscular Hemoglobin 29.9 pg (27.0-33.0); Mean Corpuscular Volume 84.7 fL (80-98); Mean Platelet Volume 9.5 fL (9.4-12.3); Monocytes Absolute Auto 0.7 X10*3/uL (0.1-1.2); Monocytes Percent Auto 14.1 % (2-11); Neutrophils Absolute Auto 3.2 X10*3/uL (2.0-8.3); Platelet Count 323 X10*3/uL (160-400); Red Blood Count 4.78 X10*6/uL (4.20-5.50); Red Cell Distribution Width 12.1 % (11.0-16.0)
[2021-03-07 17:36] LABS: Glucose Urine UA NEG (NEG); Leukocyte Esterase Urine NEG (NEG); Nitrite Urine NEG (NEG); Specific Gravity - Urine <= 1.005 (1.005-1.025); Urine Blood NEG (NEG); Urine Ketones NEG (NEG); Urine Protein NEG (NEG-TRACE)
[2021-03-07 17:48] LABS: Appearance Urine CLEAR; Color Urine STRAW
--- NOTE | 2021-03-07 17:48 | ED.GENADULT ---
HPI - General Adult General Chief complaint: General Medical Stated complaint: low sodium Time Seen by Provider: 03/07/21 16:50 Source: patient Mode of arrival: ambulatory Limitations: no limitations History of Present Illness HPI narrative: 70-year-old female with a past medical history of hypertension, hyperlipidemia, chronic kidney disease and trigeminal neuralgia year with complaints of abnormal labs. Per patient she has been feeling unwell for the last 1 week. She describes this as feeling weak, tired, muscle cramping and pain. No vomiting or diarrhea. Slight headache. Patient tells me that she saw her doctor this week and he ordered outpatient labs which were done this morning. She was called and referred to the emergency department for a low sodium level. Of note, her oxcarbazepine dose was increased from 150mg to 300mg daily 2 weeks ago. She is also on HCTZ. Related Data Home Medications Medication Instructions Recorded Confirmed cholecalciferol (vitamin D3) 25 25 mcg PO DAILY 07/11/20 03/07/21 mcg (1,000 unit) capsule coenzyme Q10 100 mg capsule 100 mg PO DAILY 07/11/20 03/07/21 hydrochlorothiazide 25 mg tablet 12.5 mg PO QAM 11/28/20 03/07/21 topiramate 25 mg tablet 25 mg PO DAILY 01/24/21 03/07/21 estradiol 0.5 mg tablet 0.5 mg PO MOFR tab 02/28/21 03/07/21 oxcarbazepine 150 mg tablet 300 mg PO DAILY tab 02/28/21 03/07/21 lisinopril 1 tab PO DAILY 03/07/21 03/07/21 rosuvastatin 5 mg PO MOFR 03/07/21 03/07/21 Previous Rx's Medication Instructions Recorded fluticasone propionate 50 2 spray INTRANASAL DAILY #16 g 03/07/21 mcg/actuation nasal spray,suspension Allergies Allergy/AdvReac Type Severity Reaction Status Date / Time fentanyl AdvReac Severe severe Verified 03/07/21 15:35 nausea simvastatin AdvReac Unknown muscle pain Verified 03/07/21 15:35 ENVIRONMENTAL Allergy Intermediate HAYFEVER Uncoded 04/28/20 14:51 Review of Systems Review of Systems: Yes all other systems are reviewed and are negative Constitutional: Constitutional: Reports no additional constitutional complaints, Reports body ache(s), Denies chills, Reports fatigue, Denies fever(s), Denies headache(s) and Reports weakness Comments: muscle aches Eyes: Eyes: Reports no additional eye complaints and Denies change in vision ENT: Reports system reviewed and no additional complaints, except as documented, Denies dizziness, Denies headache(s), Denies nasal congestion, Denies nasal discharge and Denies neck pain Cardiovascular: Cardiovascular: Reports no additional cardiovascular complaints, Denies chest pain, Denies leg edema and Denies dyspnea Respiratory: Respiratory: Reports no additional respiratory complaints, Denies cough and Denies dyspnea Gastrointestinal: Gastrointestinal: Reports no additional gastrointestinal complaints, Denies abdominal pain, Denies diarrhea, Denies nausea and Denies vomiting Genitourinary: Genitourinary: Reports no additional female genitourinary complaints and Denies urinary incontinence Musculoskeletal: Musculoskeletal: Reports no additional musculoskeletal complaints, Denies back pain, Denies arthralgias, Denies joint swelling, Denies neck pain, Denies numbness and Denies tingling Integumentary/Breasts: Skin/Breast: Reports system reviewed and no additional complaints, except as docu and Denies rash Neurologic: Reports system reviewed and no additional complaints, except as documented, Denies Abnormal speech present, Denies dizziness, Denies headache(s), Denies numbness, Denies tingling and Reports weakness Endocrine: Endocrine: Reports fatigue PMFSH Past Medical History Attestation statement: The following information was validated with the patient. Source: old records reviewed and nursing notes reviewed Medical History Chronic kidney disease, stage III (moderate) Dyslipidemia Essential hypertension History of COVID-19 Lumbar degenerative disc disease Non-toxic multinodular goiter Osteopenia of left hip Postmenopausal syndrome Surgical menopause Trigeminal neuralgia Uterine fibroid Surgical History H/O total hysterectomy with bilateral salpingo-oophorectomy (BSO) History of back surgery History of deviated nasal septum Vocal cord cyst Family History Family History Father HTN (hypertension) Heart disease DDD (degenerative disc disease) Myocardial infarction Mother Diabetes mellitus Colon cancer Arthritis Hot flashes Daughter Papillary thyroid carcinoma Paternal Aunt CVD (cardiovascular disease) History of heart attack Son No problems noted. Daughter No problems noted. Brother Substance use disorder Brother Substance use disorder Brother Substance use disorder Sister No problems noted. Sister No problems noted. Sister No problems noted. Sister No problems noted. Sister No problems noted. Social History Social History Housing: House Alcohol intake: never Patient Tobacco Use Status: Never used Tobacco Second Hand Smoke Exposure: No Advance Directives: Yes Advance Directives Information Provided: No Advance Directives on File: No service: No Current occupational status: retired Physical Exam Vital Signs: Vital Signs: Last Vital Signs Temp 98.0 F 03/07/21 15:35 Pulse 80 03/07/21 15:35 Resp 18 03/07/21 15:35 BP 149/88 H 03/07/21 15:35 Pulse Ox 98 03/07/21 15:35 Body Mass Index 27.4 Const: General: cooperative, healthy appearing, comfortable and no acute distress Orientation/consciousness: patient oriented x3 Limitations: no limitations HENMT: Head: Yes normal to inspection Ears: hearing grossly normal bilaterally General nose exam: Normal external nose present Face and sinus: Yes normal facial exam Mouth: Normal oral and palatal mucosa present Throat: Yes posterior oropharynx normal Eyes: General: appearance normal, both eyes and all related structures Pupils: Equal, round and reactive pupils present Neck: Neck: Yes normal visual inspection Chest: Chest palpation & inspection: normal inspection of the chest Resp: Effort & Inspection: normal respiratory effort Auscultation: clear to auscultation bilaterally Cardio: Rate: regular rate Rhythm: regular rhythm Peripheral pulses: Peripheral pulses 2+ throughout GI: Inspection: Yes normal to inspection Palpation (GI): Soft to palpation and nontender Auscultation: normal bowel sounds Back/Spine/Pelvis: Thoracic/Lumbar Spine: thoracic and lumbar spine normal to inspection Skin: General skin exam: no rashes or lesions noted Neuro: General: patient oriented x3, no focal motor deficits and normal sensation to monofilament Cranial nerves: Yes Equal, round and reactive pupils present Cognition (Neuro): normal cognition Speech: No Abnormal speech present Gait exam (Neuro): Normal gait present Motor exam (neuro): 5/5 motor strength present throughout Extrem: General: Yes normal to inspection Course Course Course Narrative: 70-year-old female with a past medical history of high blood pressure, high cholesterol, chronic kidney disease followed by Dr. Joyce and trigeminal neuralgia here with complaints of low sodium checked on outpatient labs this morning. She has been feeling weak and tired with muscle cramping and pain for the last 1 week. Of note, the patient recently increased her dose of oxcarbamazepine (150mg daily to 300mg daily), and is taking hctz daily. ?medication related. Will check labs here including serum osm, urine studies, discuss with nephro. Will need admission. [id number]. Will discuss with nephro. 1821-Spoke to Dr Crisostomo. Likely related to oxcarbamazepine. Recommended holding. Starting urea powder 30gm BID. Trending sodium. Patient unhappy with this news as she recently increased her dose d/t symptoms of trigemal neuralgia and is afraid if she doesn't take it that her symptoms will return. She has failed surgical options with Dr Claros. Call out to medicine to discuss for admission. 1939-Discussed patient with Dr Davis who accepted admission. Medical Decision Making Medical Records Medical records reviewed: Yes I reviewed the patient's medical records. Lab Data Lab results reviewed: Yes I reviewed the patient's lab results. Result diagrams: 03/07/21 17:10 03/07/21 17:10 Labs: Lab Results 03/07/21 03/07/21 03/07/21 Range/Units 17:10 17:10 17:10 WBC 5.0 (4.8-10.8) X10*3/uL RBC 4.78 (4.20-5.50) X10*6/uL Hgb 14.3 (12.0-16.0) g/dl Hct 40.5 (37-47) % MCV 84.7 (80-98) fL MCH 29.9 (27.0-33.0) pg MCHC 35.3 H (31.0-35.0) g/dl RDW 12.1 (11.0-16.0) % Plt Count 323 (160-400) X10*3/uL MPV 9.5 (9.4-12.3) fL Immature Gran % (Auto) 0.2 (0.0-0.4) % Neut % (Auto) 63.0 (45-73) % Lymph % (Auto) 21.9 (20-40) % [place] % (Auto) 14.1 H (2-11) % Eos % (Auto) 0.2 (0-4) % Baso % (Auto) 0.6 (0-2) % Lymph # (Auto) 1.1 L (1.2-4.9) X10*3/uL [place] # (Auto) 0.7 (0.1-1.2) X10*3/uL Eos # (Auto) 0.0 (0.0-0.4) X10*3/uL Baso # (Auto) 0.0 (0.0-0.2) X10*3/uL Abs Immat Gran (auto) 0.01 (0.00-0.03) X10*3/uL Absolute Neuts (auto) 3.2 (2.0-8.3) X10*3/uL Absolute Nucleated RBC 0.000 (0.0-0.012) X10*3/uL Nucleated RBC % (auto) 0.0 (0.0-0.2) /100WBC Sodium 121 L (135-145) mmol/L Potassium 4.2 (3.3-5.1) mmol/L Chloride 87 L (96-108) mmol/L Carbon Dioxide 22 (22-29) mmol/L Anion Gap 16 (12-20) BUN 16 (9-16) mg/dL Creatinine 1.18 (0.5-1.4) mg/dL Estim Creat Clear Calc 42.2 Estimated GFR 45 Random Glucose 93 (60-115) mg/dL Osmolality 256 L (281-305) mosm/kg Calcium 9.8 (8.4-10.2) mg/dL Magnesium 2.1 (1.6-2.6) mg/dL Total Bilirubin 0.6 (0.0-1.0) mg/dL Direct Bilirubin 0.3 (0.0-0.5) mg/dL AST 27 (5-31) U/L ALT 22 (0-31) U/L Alkaline Phosphatase 83 (39-117) U/L Total Protein 8.1 H (6.5-8.0) g/dL Albumin 4.9 (3.5-5.0) g/dL Urine Color Urine Appearance Urine pH (5.0-8.0) Ur Specific [place] (1.005-1.025) Urine Protein (NEG-TRACE) MG/DL Urine Glucose (UA) (NEG) MG/DL Urine Ketones (NEG) MG/DL Urine Blood (NEG) Urine Nitrite (NEG) Ur Leukocyte Esterase (NEG) Urine Osmolality (373-1093) mosm/kg Ur Random Sodium mmol/L Urine Creatinine mg/dL COVID-19 ([facility]) (Negative) COVID-19 Clin Com 03/07/21 03/07/21 03/07/21 Range/Units 17:10 17:10 17:10 WBC (4.8-10.8) X10*3/uL RBC (4.20-5.50) X10*6/uL Hgb (12.0-16.0) g/dl Hct (37-47) % MCV (80-98) fL MCH (27.0-33.0) pg MCHC (31.0-35.0) g/dl RDW (11.0-16.0) % Plt Count (160-400) X10*3/uL MPV (9.4-12.3) fL Immature Gran % (Auto) (0.0-0.4) % Neut % (Auto) (45-73) % Lymph % (Auto) (20-40) % [place] % (Auto) (2-11) % Eos % (Auto) (0-4) % Baso % (Auto) (0-2) % Lymph # (Auto) (1.2-4.9) X10*3/uL [place] # (Auto) (0.1-1.2) X10*3/uL Eos # (Auto) (0.0-0.4) X10*3/uL Baso # (Auto) (0.0-0.2) X10*3/uL Abs Immat Gran (auto) (0.00-0.03) X10*3/uL Absolute Neuts (auto) (2.0-8.3) X10*3/uL Absolute Nucleated RBC (0.0-0.012) X10*3/uL Nucleated RBC % (auto) (0.0-0.2) /100WBC Sodium (135-145) mmol/L Potassium (3.3-5.1) mmol/L Chloride (96-108) mmol/L Carbon Dioxide (22-29) mmol/L Anion Gap (12-20) BUN (9-16) mg/dL Creatinine (0.5-1.4) mg/dL Estim Creat Clear Calc Estimated GFR Random Glucose (60-115) mg/dL Osmolality (281-305) mosm/kg Calcium (8.4-10.2) mg/dL Magnesium (1.6-2.6) mg/dL Total Bilirubin (0.0-1.0) mg/dL Direct Bilirubin (0.0-0.5) mg/dL AST (5-31) U/L ALT (0-31) U/L Alkaline Phosphatase (39-117) U/L Total Protein (6.5-8.0) g/dL Albumin (3.5-5.0) g/dL Urine Color STRAW Urine Appearance CLEAR Urine pH 6.0 (5.0-8.0) Ur Specific [place] <= 1.005 (1.005-1.025) Urine Protein NEG (NEG-TRACE) MG/DL Urine Glucose (UA) NEG (NEG) MG/DL Urine Ketones NEG (NEG) MG/DL Urine Blood NEG (NEG) Urine Nitrite NEG (NEG) Ur Leukocyte Esterase NEG (NEG) Urine Osmolality 263 L (373-1093) mosm/kg Ur Random Sodium 39.0 mmol/L Urine Creatinine 42.16 mg/dL COVID-19 ([facility]) (Negative) COVID-19 Clin Com 03/07/21 Range/Units 18:16 WBC (4.8-10.8) X10*3/uL RBC (4.20-5.50) X10*6/uL Hgb (12.0-16.0) g/dl Hct (37-47) % MCV (80-98) fL MCH (27.0-33.0) pg MCHC (31.0-35.0) g/dl RDW (11.0-16.0) % Plt Count (160-400) X10*3/uL MPV (9.4-12.3) fL Immature Gran % (Auto) (0.0-0.4) % Neut % (Auto) (45-73) % Lymph % (Auto) (20-40) % [place] % (Auto) (2-11) % Eos % (Auto) (0-4) % Baso % (Auto) (0-2) % Lymph # (Auto) (1.2-4.9) X10*3/uL [place] # (Auto) (0.1-1.2) X10*3/uL Eos # (Auto) (0.0-0.4) X10*3/uL Baso # (Auto) (0.0-0.2) X10*3/uL Abs Immat Gran (auto) (0.00-0.03) X10*3/uL Absolute Neuts (auto) (2.0-8.3) X10*3/uL Absolute Nucleated RBC (0.0-0.012) X10*3/uL Nucleated RBC % (auto) (0.0-0.2) /100WBC Sodium (135-145) mmol/L Potassium (3.3-5.1) mmol/L Chloride (96-108) mmol/L Carbon Dioxide (22-29) mmol/L Anion Gap (12-20) BUN (9-16) mg/dL Creatinine (0.5-1.4) mg/dL Estim Creat Clear Calc Estimated GFR Random Glucose (60-115) mg/dL Osmolality (281-305) mosm/kg Calcium (8.4-10.2) mg/dL Magnesium (1.6-2.6) mg/dL Total Bilirubin (0.0-1.0) mg/dL Direct Bilirubin (0.0-0.5) mg/dL AST (5-31) U/L ALT (0-31) U/L Alkaline Phosphatase (39-117) U/L Total Protein (6.5-8.0) g/dL Albumin (3.5-5.0) g/dL Urine Color Urine Appearance Urine pH (5.0-8.0) Ur Specific [place] (1.005-1.025) Urine Protein (NEG-TRACE) MG/DL Urine Glucose (UA) (NEG) MG/DL Urine Ketones (NEG) MG/DL Urine Blood (NEG) Urine Nitrite (NEG) Ur Leukocyte Esterase (NEG) Urine Osmolality (373-1093) mosm/kg Ur Random Sodium mmol/L Urine Creatinine mg/dL COVID-19 ([facility]) Negative (Negative) COVID-19 Clin Com See Note Discharge Plan Discharge Clinical Impression: Acute hyponatremia Patient Disposition: Admitted As Inpatient
[2021-03-07 17:53] LABS: Osmolality Urine 263 mosm/kg (373-1093); Osmolality, Serum 256 mosm/kg (281-305)
[2021-03-07 17:58] LABS: Alanine Aminotransferase 22 U/L (0-31); Albumin Level 4.9 g/dL (3.5-5.0); Alkaline Phosphatase 83 U/L (39-117); Anion Gap 16 (12-20); Aspartate Amino Transferase 27 U/L (5-31); Bilirubin Direct 0.3 mg/dL (0.0-0.5); Bilirubin Total 0.6 mg/dL (0.0-1.0); Blood Urea Nitrogen 16 mg/dL (9-16); Calcium 9.8 mg/dL (8.4-10.2); Carbon Dioxide 22 mmol/L (22-29); Chloride 87 mmol/L (96-108); Creatinine Clr Calc Pharmacy 42.2; Creatinine Urine 42.16 mg/dL; Estimated Glomerular Filt Rate 45; Glucose Random 93 mg/dL (60-115); Magnesium 2.1 mg/dL (1.6-2.6); Potassium 4.2 mmol/L (3.3-5.1); Sodium 121 mmol/L (135-145); Total Protein 8.1 g/dL (6.5-8.0)
--- NOTE | 2021-03-07 18:42 | PHA.MEDREC ---
Pharmacy Consult ? Medication Reconciliation Pharmacy has completed the medication reconciliation.
[2021-03-07 18:47] LABS: COVID-19 Test Negative (Negative)
--- NOTE | 2021-03-07 19:15 | PC.NURSE ---
ASSUMED CARE OF PT. PT AWAITING FOR ROOM ASSIGNMENT. PT ALERT, AND DENIES COMPLAINTS. PT UP TO RESTROOM WITH STEADY EVEN GAIT AND DENIES DIZZY, CP OR ANY OTHER COMPLAINTS. PT REMAINS ON MONITOR, VS OBTAINED. WILL CONTINUE TO MONITOR PT.
[2021-03-07] MEDS: Urea 15 GM POWDER 30 GM PO (19:37)
--- NOTE | 2021-03-07 19:37 | PC.NURSE ---
UREA GIVEN AT THIS TIME, NOT IN PIXIS. PT DENIES ANY COMPLAINTS.
--- NOTE | 2021-03-07 20:26 | PC.NURSE ---
HOSPITALIST IN ROOM FOR ADMISSION. PT AWAITING ROOM ASSIGNMENT. PT DENIES COMPLAINTS. WILL CONTINUE TO MONITOR PT.
[2021-03-07] MEDS: Zolpidem Tartrate 5 MG TABLET PO (22:08)
[2021-03-07] MEDS: Cyclobenzaprine HCl 5 MG TABLET PO (22:13)
[2021-03-08] VITALS (8 sets, daily range): BP systolic 107–145; BP diastolic 55–79; PULSE 77–90; RESP 16–20; TEMP 36.4–36.8; O2SAT 96–98; BMI 27.4
--- NOTE | 2021-03-08 00:26 | P.HPHOSP_ITS ---
History of Present Illness Date of Service: 03/07/21 Chief Complaint: Weakness, dizziness, insomnia This is a 70-year-old female with past medical history of trigeminal neuralgia, history of COVID, HTN, HLD, history of seasonal allergies, lumbar degenerative disc disease among others who presents hospital with multiple complaints. Patient reports that about 2 weeks ago her Tegretol was increased from 150-300 d ue to breakthrough trigeminal neurology flares. She reports that a week later she started developing headache, muscle cramps, allergy flare, and feeling generally unwell. She was also feeling dizziness and insomnia. Patient reports that she has not slept in 3 days, she has significant muscle spasms in her arms and legs and that has kept her up mostly as well. She went to her PCP today to ask for something for sleep, had labs done which showed her sodium to be low and therefore was sent to the ED. Denies any chest pain, headache, no change in vision, no abdominal pain nausea vomiting, diarrhea constipation, no urinary symptoms and no lower extremity edema. Vitals on arrival significant for temp of 98.0?, heart rate of 80, respiratory rate of 18, blood pressure of 149/88, satting 98% on room air Labs are significant for WBC count of 5, hemoglobin of 14.3 sodium of 120 (136 from November 24), chloride of 87, serum osmolality of 256, UA negative, urine osmolality of 263. Patient was discussed with Nephrology, felt her hyponatremia was due to Tegretol Patient will be admitted for further management Past medical history as below and confirmed with patient Review of Systems Review of Systems: Yes all other systems are reviewed and are negative [facility] Medical History Chronic kidney disease, stage III (moderate) Dyslipidemia Essential hypertension History of COVID-19 Lumbar degenerative disc disease Non-toxic multinodular goiter Osteopenia of left hip Postmenopausal syndrome Surgical menopause Trigeminal neuralgia Uterine fibroid Family History Father HTN (hypertension) Heart disease DDD (degenerative disc disease) Myocardial infarction Mother Diabetes mellitus Colon cancer Arthritis Hot flashes Daughter Papillary thyroid carcinoma Paternal Aunt CVD (cardiovascular disease) History of heart attack Son No problems noted. Daughter No problems noted. Brother Substance use disorder Brother Substance use disorder Brother Substance use disorder Sister No problems noted. Sister No problems noted. Sister No problems noted. Sister No problems noted. Sister No problems noted. Surgical History H/O total hysterectomy with bilateral salpingo-oophorectomy (BSO) History of back surgery History of deviated nasal septum Vocal cord cyst Social History Housing: House Alcohol intake: never Patient Tobacco Use Status: Never used Tobacco Second Hand Smoke Exposure: No Advance Directives: Yes Advance Directives Information Provided: No Advance Directives on File: No service: No Current occupational status: retired Meds Allergies Allergy/AdvReac Type Severity Reaction Status Date / Time fentanyl AdvReac Severe severe Verified 03/07/21 15:35 nausea simvastatin AdvReac Unknown muscle pain Verified 03/07/21 15:35 ENVIRONMENTAL Allergy Intermediate HAYFEVER Uncoded 04/28/20 14:51 Active Medications: Current Medications Generic Name Dose Route Start Last Admin Trade Name Freq PRN Reason Stop Dose Admin Acetaminophen 650 mg 03/08/21 00:20 Acetaminophen 325 Mg Tablet PO Q6H PRN Pain, Mild (Pain Scale 1-3) Cyclobenzaprine HCl 5 mg 03/07/21 21:30 03/07/21 22:13 Cyclobenzaprine Hcl 5 Mg Tablet PO 5 mg BEDTIME PRN Administration Muscle Spasm Docusate Sodium 100 mg 03/08/21 00:20 Docusate Sodium 100 Mg Capsule PO DAILY PRN Constipation Enoxaparin Sodium 40 mg 03/08/21 00:20 Enoxaparin Sodium 40 Mg/0.4 Ml Syringe SUBCUT Q24H RODERICK Estradiol 0.5 mg 03/10/21 21:26 Estradiol 0.5 Mg Tablet PO MOFR RODERICK Fluticasone Propionate 2 spray 03/08/21 09:00 Fluticasone Propionate Nasal 16 Gm [place] NOSTRIL-B DAILY RODERIKC Guaifenesin/Dextromethorphan 1 tab 03/07/21 21:30 Guaifenesin Dm 600/30 1 Tab Tab.Er.12h PO BID PRN Cough Hydrochlorothiazide 12.5 mg 03/08/21 00:20 Hydrochlorothiazide 12.5 Mg Tablet PO QAM RODERICK Protocol Lisinopril 40 mg 03/08/21 09:00 Lisinopril 40 Mg Tablet PO DAILY COUNTS INCLUDE 234 BEDS AT THE [facility] Protocol Non-Formulary Medication 5 mg 03/10/21 21:26 Rosuvastatin PO MOFR COUNTS INCLUDE 234 BEDS AT THE [facility] Ondansetron HCl 4 mg 03/08/21 00:20 Ondansetron Hcl 4 Mg/2 Ml Vial IVPUSH Q8H PRN Nausea and Vomiting Pharmacy Consult 1 each 03/07/21 16:50 Consult Rx Perform Med Rec MISCELLANE ONCE PRN Consult order Pharmacy Consult 1 each 03/07/21 17:46 Consult Rx Perform Med Rec MISCELLANE ONCE PRN Consult order Sodium Chloride 3 ml 03/08/21 00:20 0.9 % Sodium Chloride Flush 3 Ml Syringe IVFLUSH QSHIFT COUNTS INCLUDE 234 BEDS AT THE [facility] Topiramate 25 mg 03/08/21 09:00 Topiramate 25 Mg Tablet PO DAILY COUNTS INCLUDE 234 BEDS AT THE [facility] Urea 30 gm 03/08/21 09:00 Urea 15 Gm Powder PO BID COUNTS INCLUDE 234 BEDS AT THE [facility] Vitamin D 25 mcg 03/08/21 09:00 Cholecalciferol (Vitamin D3) 25 Mcg Tablet PO DAILY COUNTS INCLUDE 234 BEDS AT THE [facility] Home Medications Medication Instructions Recorded Confirmed Last Taken Type cholecalciferol (vitamin D3) 25 25 mcg PO DAILY 07/11/20 03/07/21 03/07/21 History mcg (1,000 unit) capsule coenzyme Q10 100 mg capsule 100 mg PO DAILY 07/11/20 03/07/21 03/07/21 History hydrochlorothiazide 25 mg tablet 12.5 mg PO QAM 11/28/20 03/07/21 03/07/21 History topiramate 25 mg tablet 25 mg PO DAILY 01/24/21 03/07/21 03/07/21 History estradiol 0.5 mg tablet 0.5 mg PO MOFR tab 02/28/21 03/07/21 03/06/21 History oxcarbazepine 150 mg tablet 300 mg PO DAILY tab 02/28/21 03/07/21 03/07/21 History lisinopril 1 tab PO DAILY 03/07/21 03/07/21 03/07/21 History rosuvastatin 5 mg PO MOFR 03/07/21 03/07/21 03/06/21 History Physical Exam Vital Signs and Narrative: Vital Signs: Last Vital Signs Temp 98.0 F 03/07/21 15:35 Pulse 80 03/07/21 15:35 Resp 18 03/07/21 15:35 BP 149/88 H 03/07/21 15:35 Pulse Ox 98 03/07/21 15:35 Body Mass Index 27.4 Const: General: cooperative and no acute distress Orientation/consciousness: patient oriented x3 Eyes: General: appearance normal, both eyes and all related structures Resp: Effort & Inspection: normal respiratory effort and able to speak in complete sentences Cardio: Rate: regular rate Rhythm: regular rhythm GI: Palpation (GI): Soft to palpation Auscultation: normal bowel sounds Skin: General skin exam: no rashes or lesions noted Neuro: General: patient oriented x3 Cognition (Neuro): normal cognition Extrem: General: Yes normal to inspection and Yes no pedal edema Results Labs CBC and Chem 7: 03/07/21 17:10 03/07/21 17:10 Labs: Laboratory Results - last 24 hr 03/07/21 03/07/21 03/07/21 17:10 17:10 17:10 MCV 84.7 MCH 29.9 MCHC 35.3 H RDW 12.1 Plt Count 323 MPV 9.5 Immature Gran % (Auto) 0.2 Neut % (Auto) 63.0 Lymph % (Auto) 21.9 [place] % (Auto) 14.1 H Eos % (Auto) 0.2 Baso % (Auto) 0.6 Lymph # (Auto) 1.1 L [place] # (Auto) 0.7 Eos # (Auto) 0.0 Baso # (Auto) 0.0 Abs Immat Gran (auto) 0.01 Absolute Neuts (auto) 3.2 Absolute Nucleated RBC 0.000 Nucleated RBC % (auto) 0.0 Anion Gap 16 Estim Creat Clear Calc 42.2 Estimated GFR 45 Random Glucose 93 Osmolality 256 L Calcium 9.8 Magnesium 2.1 Total Bilirubin 0.6 Direct Bilirubin 0.3 AST 27 ALT 22 Alkaline Phosphatase 83 Total Protein 8.1 H Albumin 4.9 Urine Color Urine Appearance Urine pH Ur Specific [place] Urine Protein Urine Glucose (UA) Urine Ketones Urine Blood Urine Nitrite Ur Leukocyte Esterase Urine Osmolality Ur Random Sodium Urine Creatinine COVID-19 ([facility]) COVID-19 Clin Com 03/07/21 03/07/21 03/07/21 17:10 17:10 17:10 MCV MCH MCHC RDW Plt Count MPV Immature Gran % (Auto) Neut % (Auto) Lymph % (Auto) [place] % (Auto) Eos % (Auto) Baso % (Auto) Lymph # (Auto) [place] # (Auto) Eos # (Auto) Baso # (Auto) Abs Immat Gran (auto) Absolute Neuts (auto) Absolute Nucleated RBC Nucleated RBC % (auto) Anion Gap Estim Creat Clear Calc Estimated GFR Random Glucose Osmolality Calcium Magnesium Total Bilirubin Direct Bilirubin AST ALT Alkaline Phosphatase Total Protein Albumin Urine Color STRAW Urine Appearance CLEAR Urine pH 6.0 Ur Specific [place] <= 1.005 Urine Protein NEG Urine Glucose (UA) NEG Urine Ketones NEG Urine Blood NEG Urine Nitrite NEG Ur Leukocyte Esterase NEG Urine Osmolality 263 L Ur Random Sodium 39.0 Urine Creatinine 42.16 COVID-19 ([place]) COVID-19 [employer] Com 03/07/21 18:16 MCV MCH MCHC RDW Plt Count MPV Immature Gran % (Auto) Neut % (Auto) Lymph % (Auto) [place] % (Auto) Eos % (Auto) Baso % (Auto) Lymph # (Auto) [place] # (Auto) Eos # (Auto) Baso # (Auto) Abs Immat Gran (auto) Absolute Neuts (auto) Absolute Nucleated RBC Nucleated RBC % (auto) Anion Gap Estim Creat Clear Calc Estimated GFR Random Glucose Osmolality Calcium Magnesium Total Bilirubin Direct Bilirubin AST ALT Alkaline Phosphatase Total Protein Albumin Urine Color Urine Appearance Urine pH Ur Specific [place] Urine Protein Urine Glucose (UA) Urine Ketones Urine Blood Urine Nitrite Ur Leukocyte Esterase Urine Osmolality Ur Random Sodium Urine Creatinine COVID-19 ([facility]) Negative COVID-19 Clin Com See Note Assessment and Plan (1) Acute hyponatremia: Status: Acute (2) Insomnia: Status: Acute (3) Muscle spasm: Status: Acute 70-year-old female with past medical history of hypertension, CKD, trigeminal neuralgia on Tegretol presents to the hospital with abnormal labs found to have sodium of 120 # acute hyponatremia - most likely secondary to medication - per recommendation of Nephrology will hold Tegretol - will start urea 30 g b.i.d. - follow level q.6 hours - of note patient reports that she cannot stop Tegretol due to the fact that this is the only thing that has helped, surgical intervention for her trigeminal neuralgia has failed in the past # insomnia - possibly secondary to above - will give her 1 dose of Ambien S patient reports she has not slept in 3 days # muscle spasm - will give her 1 dose of Flexeril - correct sodium # hypertension - stable - continue home medications # hyperlipidemia - continue statin DVT prophylaxis: Lovenox Quality Stroke Does the patient have a stroke diagnosis?: No VTE Prior VTE?: No VTE Risk Level:: Medical - moderate - high VTE Device Contraindication: Treatment Not Indicated VTE Drug Contraindication: N/A - Med Ordered
--- NOTE | 2021-03-08 00:57 | PC.NURSE ---
PT DENIES COMPLAINTS AND REQUESTING ROOM ASSIGNMENT. PT ALERT, AND AMBULATES TO RESTROOM W/O DIFFICULTY. PT REMAINS ON MONITOR WITH HR 85. VS OBTAINED. WILL CONTINUE TO MONITOR PT.
[2021-03-08 01:34] LABS: Anion Gap 13 (12-20); Blood Urea Nitrogen 50 mg/dL (9-16); Calcium 9.7 mg/dL (8.4-10.2); Carbon Dioxide 23 mmol/L (22-29); Chloride 90 mmol/L (96-108); Creatinine Clr Calc Pharmacy 50.4; Estimated Glomerular Filt Rate 56; Glucose Random 101 mg/dL (60-115); Potassium 3.8 mmol/L (3.3-5.1); Sodium 122 mmol/L (135-145)
[2021-03-08 07:08] LABS: MANUAL DIFF FLAG NO
[2021-03-08 07:21] LABS: Basophils Percent Auto 0.9 % (0-2); Eosinophils Percent Auto 0.5 % (0-4); Hematocrit 38.9 % (37-47); Imm Gran Abs Auto 0.02 X10*3/uL (0.00-0.03); Imm Gran Pct Auto 0.5 % (0.0-0.4); Lymphocytes Absolute Auto 0.9 X10*3/uL (1.2-4.9); Lymphocytes Percent Auto 19.7 % (20-40); Mean Corpuscular Hemoglobin 30.6 pg (27.0-33.0); Mean Corpuscular Volume 84.9 fL (80-98); Mean Platelet Volume 9.5 fL (9.4-12.3); Monocytes Absolute Auto 0.9 X10*3/uL (0.1-1.2); Monocytes Percent Auto 19.3 % (2-11); Neutrophils Absolute Auto 2.6 X10*3/uL (2.0-8.3); Neutrophils Percent Auto 59.1 % (45-73); Platelet Count 304 X10*3/uL (160-400); Red Blood Count 4.58 X10*6/uL (4.20-5.50); Red Cell Distribution Width 12.4 % (11.0-16.0); White Blood Count 4.4 X10*3/uL (4.8-10.8)
[2021-03-08 07:47] LABS: Anion Gap 14 (12-20); Blood Urea Nitrogen 37 mg/dL (9-16); Carbon Dioxide 24 mmol/L (22-29); Chloride 92 mmol/L (96-108); Creatinine Clr Calc Pharmacy 44.1; Estimated Glomerular Filt Rate 48; Glucose Random 99 mg/dL (60-115); Potassium 4.6 mmol/L (3.3-5.1); Sodium 125 mmol/L (135-145)
--- NOTE | 2021-03-08 09:03 | MHC.CM.PN ---
CM met with Patient at bedside and addressed IMM, providing her with the original and placing a copy on the chart. Patient lives in a house with her /HCP and she is functionally independent.Home/no services is the goal foe dc and CM has initiated and will follow for dc planning. PCP is Dr. Deedee Monaco.
[2021-03-08] MEDS: 0.9 % Sodium Chloride Flush 3 ML SYRINGE IVFLUSH ×4 (09:11→23:41)
[2021-03-08] MEDS: Topiramate 25 MG TABLET PO (09:12)
[2021-03-08] MEDS: Cholecalciferol (Vitamin D3) 25 MCG TABLET PO (09:12)
[2021-03-08] MEDS: hydroCHLOROthiazide 12.5 MG TABLET PO (09:12)
[2021-03-08] MEDS: Urea 15 GM POWDER 30 GM PO ×2 (09:15→20:43)
--- NOTE | 2021-03-08 09:19 | HE.PHANOTE ---
Spoke with Alejandrina on IMC, she said she would check in with the nurse taking care of Annette and see if the family can bring in the Rosuvastatin. -Nilsa Rosa, PharmD [phone]
--- NOTE | 2021-03-08 13:13 | CONS_ITS ---
DATE OF SERVICE: 03/08/2021 REASON FOR CONSULTATION: Consult requested by the medical team to evaluate and help in management of patient with hyponatremia. HISTORY OF PRESENT ILLNESS: The patient is a 70-year-old female with past medical history of trigeminal neuralgia, history of COVID in the past, hypertension, hyperlipidemia, who presented to the hospital with the above-mentioned complaint, which include weakness, dizziness and insomnia. Two weeks ago, her Tegretol dose was increased from 150 to 300 due to breakthrough trigeminal neuralgia flare. She stated that she is not drinking significant amount of fluid, which is different from the past. She was on diuretic hydrochlorothiazide for many years. She has never had a low sodium in the past that she can recollect. She did have significant muscle spasm in the arm and leg and had seen her PCP yesterday. There was no chest pain, headache, vision changes, abdominal pain, nausea, vomiting, diarrhea, constipation, or urinary symptoms. There was no lower extremity edema. She was hemodynamically stable in the ER. Lab work showed the patient's sodium level was low at around 120. She was taken off Tegretol and her sodium level has improved to 125. In November, sodium was 136. She denied any GI fluid losses like diarrhea, nausea, or vomiting. REVIEW OF SYSTEMS: As noted above. Other systems were reviewed, negative. PAST MEDICAL HISTORY: History of dyslipidemia, history of hypertension, mild CKD, history of COVID, lumbar degenerative disease, nontoxic multinodular goiter, osteopenia of the left hip, postmenopausal syndrome, surgical menopause, trigeminal neuralgia, and uterine fibroid. For the trigeminal neuralgia, she has had surgery in the back of her skull. FAMILY HISTORY: Include history of hypertension, heart disease, and history of coronary artery disease in her father. Mother had diabetes, colon CA, arthritis. Daughter has papillary thyroid cancer. PAST SURGICAL HISTORY: History of bilateral salpingo-oophorectomy, history of back surgery, deviated nasal septum surgery and vocal cord cyst. PERSONAL AND SOCIAL HISTORY: The patient does not drink, does not use drugs or smoke. ALLERGIES: THE PATIENT HAS ALLERGY TO FENTANYL, SIMVASTATIN. MEDICATIONS: At home include cholecalciferol, Coenzyme Q10, hydrochlorothiazide 12.5 q.a.m., topiramate, estradiol, oxcarbazepine 300 mg daily, lisinopril, and rosuvastatin. PHYSICAL EXAMINATION: GENERAL: The patient is resting in the bed. Awake, alert, oriented x3. No significant distress. VITAL SIGNS: Blood pressure was 145/71, pulse 89, afebrile. HEENT: Pupils equal bilaterally and reactive to light. No jugular venous distention is noted. NECK: Supple. No thyromegaly is noted. Mucosa moist. There is no scleral icterus or conjunctival congestion. CARDIOVASCULAR SYSTEM: S1, S2 without rub or murmur. RESPIRATORY SYSTEM: Air entry decreased in the bases. No crepitation or rhonchi is noted. ABDOMEN: Soft, nontender. No guarding. No rigidity. Bowel sounds normal. LABORATORY DATA: Labs done today. WBC is 4.4, hemoglobin 14, hematocrit 39.9, platelets were 304. INR 1.0. Sodium 125, potassium 4.6, chloride 92, CO2 of 24, BUN 37, creatinine 1.13. Estimated GFR was around 48. Calcium 10.0. Serum osmolality was 256. Urine osmolality was 263. Urine sodium was 39. IMPRESSION: 1. A 70-year-old female with hyponatremia. The patient has hypo-osmolar hyponatremia and she looks euvolemic to me. She did have neurological symptoms which is improved with slight improvement of her sodium level. Her urine osmolality is higher than the serum osmolarity and though it is on the low side. I suspect she has inappropriate antidiuretic hormone secretion in the setting of oxcarbazepine use. She was also on hydrochlorothiazide, which could have worsened her sodium level. It is unclear if she was taking excessive amount of free water, though she denies it. She was in pain, which could also potentiate secretion. We need to rule out thyroid disease and adrenal disease. Her TSH level was normal. 2. Chronic kidney disease stage 3 at baseline in the setting of longstanding hypertension. RECOMMENDATIONS: At this juncture, I recommend fluid restriction of 1.5 L per day. I agree with holding off on Oxacarbamezapine for a few days, but she would like to restart this medication as she has significant issues with trigeminal neuralgia. I have advised the medical team to discontinue the hydrochlorothiazide and we should avoid the use of this medication in future. We can use amlodipine 2.5 mg daily and increase to 5 mg if needed for hypertension control. I will continue the present dose of Urea 30 mg b.i.d. If the serum sodium increases above 130, we can change the Urea to 15 g b.i.d. or 30 g once a day. If the patient is started on oxcarbazepine, I recommend keeping the Urea long-term to prevent further episodes of hyponatremia. She does need follow up with us in the outpatient setting to manage her sodium level. I recommend avoiding correction of sodium of more than 6 mEq to 8 mEq over the next 24 hours. In regard to chronic kidney disease, we will continue to monitor renal function. Thank you for allowing me to participate in the medical management of the patient. MD DAE Rodriguez/OSIRIS / [id number] MTDD
[2021-03-08 13:30] LABS: Anion Gap 13 (12-20); Blood Urea Nitrogen 82 mg/dL (9-16); Calcium 10.4 mg/dL (8.4-10.2); Carbon Dioxide 26 mmol/L (22-29); Chloride 91 mmol/L (96-108); Creatinine Clr Calc Pharmacy 39.9; Estimated Glomerular Filt Rate 42; Glucose Random 119 mg/dL (60-115); Potassium 4.1 mmol/L (3.3-5.1); Sodium 126 mmol/L (135-145)
--- NOTE | 2021-03-08 15:36 | HO.PM.IMPN ---
Subjective Subjective Date of Service: 03/08/21 Review of Systems the patient was seen and evaluated this morning Laying in bed, feels comfortable and better than before Sodium of 125 this morning Denies any fever, chills or shortness of breath No reported other overnight events. Systemic review: No fever, chills as the weakness is improving No chest pain, palpitation No shortness of breath or coughing No abdominal pain, nausea or vomiting No urinary symptoms No any rash or wounds Physical Exam Vital Signs: Vital Signs: Last Vital Signs Temp 98.2 F 03/08/21 15:21 Pulse 77 03/08/21 15:21 Resp 18 03/08/21 15:21 BP 110/55 L 03/08/21 15: Pulse Ox 97 03/08/21 15: Body Mass Index 27.4 Const: Other: Constitutional : Alert, oriented, not in distress Neck : Normal inspection, Supple Cardiovascular : RRR, S1 S2, no lower extremity edema Respiratory : Good bilateral air entry, no crackles, wheezes or rhonchi Gastrointestinal: soft, lax, Normal bowel sounds, Non tender Skin : Warm/Dry, No rash Neurological : Alert & oriented x3, No focal deficit Objective Data Current Medications Generic Name Dose Route Start Last Admin Trade Name Freq PRN Reason Stop Dose Admin Acetaminophen 650 mg 03/08/21 00:20 Acetaminophen 325 Mg Tablet PO Q6H PRN Pain, Mild (Pain Scale 1-3) Cyclobenzaprine HCl 5 mg 03/07/21 21:30 03/07/21 22:13 Cyclobenzaprine Hcl 5 Mg Tablet PO 5 mg BEDTIME PRN Administration Muscle Spasm Docusate Sodium 100 mg 03/08/21 00:20 Docusate Sodium 100 Mg Capsule PO DAILY PRN Constipation Enoxaparin Sodium 40 mg 03/08/21 02:00 03/08/21 09:12 Enoxaparin Sodium 40 Mg/0.4 Ml Syringe SUBCUT Not Given Q24H RODERICK Estradiol 0.5 mg 03/10/21 09:00 Estradiol 0.5 Mg Tablet PO MoFr@0900 RODERICK Fluticasone Propionate 2 spray 03/08/21 09:00 03/08/21 11:14 Fluticasone Propionate Nasal 16 Gm [place] NOSTRIL-B Not Given DAILY RODERICK Guaifenesin/Dextromethorphan 1 tab 03/07/21 21:30 Guaifenesin Dm 600/30 1 Tab Tab.Er.12h PO BID PRN Cough Lisinopril 40 mg 03/08/21 09:00 03/08/21 09:12 Lisinopril 40 Mg Tablet PO 40 mg DAILY RODERICK Administration Protocol Non-Formulary Medication 5 mg 03/10/21 21:26 Rosuvastatin PO MOFR RODERICK Ondansetron HCl 4 mg 03/08/21 00:20 Ondansetron Hcl 4 Mg/2 Ml Vial IVPUSH Q8H PRN Nausea and Vomiting Pharmacy Consult 1 each 03/07/21 16:50 Consult Rx Perform Med Rec MISCELLANE ONCE PRN Consult order Pharmacy Consult 1 each 03/07/21 17:46 Consult Rx Perform Med Rec MISCELLANE ONCE PRN Consult order Sodium Chloride 3 ml 03/08/21 00:20 03/08/21 09:16 0.9 % Sodium Chloride Flush 3 Ml Syringe IVFLUSH 3 ml QSHIFT RODERICK Administration Topiramate 25 mg 03/08/21 09:00 03/08/21 09:12 Topiramate 25 Mg Tablet PO 25 mg DAILY RODERICK Administration Urea 30 gm 03/08/21 09:00 03/08/21 09:15 Urea 15 Gm Powder PO 30 gm BID RODERICK Administration Vitamin D 25 mcg 03/08/21 09:00 03/08/21 09:12 Cholecalciferol (Vitamin D3) 25 Mcg Tablet PO 25 mcg DAILY RODERICK Administration Labs CBC & Chem 7: 03/08/21 06:52 03/08/21 12:25 Labs: Laboratory Results - last 24 hr 03/07/21 03/07/21 03/07/21 17:10 17:10 17:10 MCV 84.7 MCH 29.9 MCHC 35.3 H RDW 12.1 Plt Count 323 MPV 9.5 Immature Gran % (Auto) 0.2 Neut % (Auto) 63.0 Lymph % (Auto) 21.9 [place] % (Auto) 14.1 H Eos % (Auto) 0.2 Baso % (Auto) 0.6 Lymph # (Auto) 1.1 L [place] # (Auto) 0.7 Eos # (Auto) 0.0 Baso # (Auto) 0.0 Abs Immat Gran (auto) 0.01 Absolute Neuts (auto) 3.2 Absolute Nucleated RBC 0.000 Nucleated RBC % (auto) 0.0 Anion Gap 16 Estim Creat Clear Calc 42.2 Estimated GFR 45 Random Glucose 93 Osmolality 256 L Calcium 9.8 Magnesium 2.1 Total Bilirubin 0.6 Direct Bilirubin 0.3 AST 27 ALT 22 Alkaline Phosphatase 83 Total Protein 8.1 H Albumin 4.9 Urine Color Urine Appearance Urine pH Ur Specific [place] Urine Protein Urine Glucose (UA) Urine Ketones Urine Blood Urine Nitrite Ur Leukocyte Esterase Urine Osmolality Ur Random Sodium Urine Creatinine COVID-19 ([facility]) COVID-19 Clin Com 03/07/21 03/07/21 03/07/21 17:10 17:10 17:10 MCV MCH MCHC RDW Plt Count MPV Immature Gran % (Auto) Neut % (Auto) Lymph % (Auto) [place] % (Auto) Eos % (Auto) Baso % (Auto) Lymph # (Auto) [place] # (Auto) Eos # (Auto) Baso # (Auto) Abs Immat Gran (auto) Absolute Neuts (auto) Absolute Nucleated RBC Nucleated RBC % (auto) Anion Gap Estim Creat Clear Calc Estimated GFR Random Glucose Osmolality Calcium Magnesium Total Bilirubin Direct Bilirubin AST ALT Alkaline Phosphatase Total Protein Albumin Urine Color STRAW Urine Appearance CLEAR Urine pH 6.0 Ur Specific [place] <= 1.005 Urine Protein NEG Urine Glucose (UA) NEG Urine Ketones NEG Urine Blood NEG Urine Nitrite NEG Ur Leukocyte Esterase NEG Urine Osmolality 263 L Ur Random Sodium 39.0 Urine Creatinine 42.16 COVID-19 ([facility]) COVID-19 [facility] Com 03/07/21 03/08/21 03/08/21 18:16 00:47 06:52 MCV 84.9 MCH 30.6 MCHC 36.0 H RDW 12.4 Plt Count 304 MPV 9.5 Immature Gran % (Auto) 0.5 H Neut % (Auto) 59.1 Lymph % (Auto) 19.7 L [place] % (Auto) 19.3 H Eos % (Auto) 0.5 Baso % (Auto) 0.9 Lymph # (Auto) 0.9 L [place] # (Auto) 0.9 Eos # (Auto) 0.0 Baso # (Auto) 0.0 Abs Immat Gran (auto) 0.02 Absolute Neuts (auto) 2.6 Absolute Nucleated RBC 0.000 Nucleated RBC % (auto) 0.0 Anion Gap 13 Estim Creat Clear Calc 50.4 Estimated GFR 56 Random Glucose 101 Osmolality Calcium 9.7 Magnesium Total Bilirubin Direct Bilirubin AST ALT Alkaline Phosphatase Total Protein Albumin Urine Color Urine Appearance Urine pH Ur Specific [place] Urine Protein Urine Glucose (UA) Urine Ketones Urine Blood Urine Nitrite Ur Leukocyte Esterase Urine Osmolality Ur Random Sodium Urine Creatinine COVID-19 ([facility]) Negative COVID-19 Clin Com See Note 03/08/21 03/08/21 06:52 12:25 MCV MCH MCHC RDW Plt Count MPV Immature Gran % (Auto) Neut % (Auto) Lymph % (Auto) [place] % (Auto) Eos % (Auto) Baso % (Auto) Lymph # (Auto) [place] # (Auto) Eos # (Auto) Baso # (Auto) Abs Immat Gran (auto) Absolute Neuts (auto) Absolute Nucleated RBC Nucleated RBC % (auto) Anion Gap 14 13 Estim Creat Clear Calc 44.1 39.9 Estimated GFR 48 42 Random Glucose 99 119 H Osmolality Calcium 10.0 10.4 H Magnesium Total Bilirubin Direct Bilirubin AST ALT Alkaline Phosphatase Total Protein Albumin Urine Color Urine Appearance Urine pH Ur Specific [place] Urine Protein Urine Glucose (UA) Urine Ketones Urine Blood Urine Nitrite Ur Leukocyte Esterase Urine Osmolality Ur Random Sodium Urine Creatinine COVID-19 ([facility]) COVID-19 Clin Com Assessment and Plan (1) Acute hyponatremia: Status: Acute (2) Insomnia: Status: Acute (3) Muscle spasm: Status: Acute Assessment and Plan: 70-year-old female with past medical history of hypertension, CKD, trigeminal neuralgia on Tegretol presents to the hospital with abnormal labs found to have sodium of 120 # acute hyponatremia Secondary to Tegretol and hydrochlorothiazide DC HCT Continue urea 30 g b.i.d. Monitor BMP Plan to restart Tegretol with urea at time of discharge and follow as outpatient with nephrology Nephrology input appreciated # insomnia Use Ambien Should improve with resolving hyponatremia # muscle spasm From hyponatremia Use Flexeril as needed # hypertension continue home medications # hyperlipidemia continue statin DVT prophylaxis Lovenox Quality Stroke Does the patient have a stroke diagnosis?: No VTE Prior VTE?: No VTE Risk Level:: Medical - moderate - high VTE Device Contraindication: Treatment Not Indicated VTE Drug Contraindication: N/A - Med Ordered
[2021-03-08 19:02] LABS: Anion Gap 17 (12-20); Blood Urea Nitrogen 72 mg/dL (9-16); Calcium 10.5 mg/dL (8.4-10.2); Carbon Dioxide 23 mmol/L (22-29); Chloride 91 mmol/L (96-108); Creatinine Clr Calc Pharmacy 27.9; Estimated Glomerular Filt Rate 28; Glucose Random 109 mg/dL (60-115); Potassium 4.4 mmol/L (3.3-5.1); Sodium 127 mmol/L (135-145)
[2021-03-08] MEDS: Cyclobenzaprine HCl 5 MG TABLET PO (20:43)
[2021-03-08] MEDS: Zolpidem Tartrate 5 MG TABLET PO (20:44)
[2021-03-09] VITALS (7 sets, daily range): BP systolic 99–130; BP diastolic 56–76; PULSE 72–100; RESP 15–19; TEMP 36.3–37.2; O2SAT 95–98
[2021-03-09 00:59] LABS: Anion Gap 15 (12-20); Blood Urea Nitrogen 95 mg/dL (9-16); Calcium 10.1 mg/dL (8.4-10.2); Carbon Dioxide 23 mmol/L (22-29); Chloride 92 mmol/L (96-108); Creatinine Clr Calc Pharmacy 27.1; Estimated Glomerular Filt Rate 27; Glucose Random 94 mg/dL (60-115); Sodium 126 mmol/L (135-145)
[2021-03-09 07:27] LABS: Anion Gap 14 (12-20); Blood Urea Nitrogen 90 mg/dL (9-16); Carbon Dioxide 25 mmol/L (22-29); Chloride 94 mmol/L (96-108); Creatinine Clr Calc Pharmacy 28.6; Estimated Glomerular Filt Rate 29; Glucose Random 95 mg/dL (60-115); Potassium 4.4 mmol/L (3.3-5.1); Sodium 129 mmol/L (135-145)
[2021-03-09] MEDS: Cholecalciferol (Vitamin D3) 25 MCG TABLET PO (08:13)
[2021-03-09] MEDS: Urea 15 GM POWDER 30 GM PO (08:14)
[2021-03-09] MEDS: Topiramate 25 MG TABLET PO (08:14)
[2021-03-09] MEDS: Fluticasone Propionate Nasal 16 GM SPRAY 2 SPRAY NOSTRIL-B (08:14)
[2021-03-09] MEDS: 0.9 % Sodium Chloride Flush 3 ML SYRINGE IVFLUSH (08:19)
[2021-03-09] MEDS: guaiFENesin DM 600/30 1 TAB TAB.ER.12H PO (08:45)
--- NOTE | 2021-03-09 12:58 | PM.PNNEP ---
Subjective Subjective Date of Service: 03/09/21 Interval history: Pt had dizziness Low BP BUN is high - On Urea Physical Exam Vital Signs: Vital Signs: Last Vital Signs Temp 97.4 F 03/09/21 11:39 Pulse 91 03/09/21 11:39 Resp 18 03/09/21 11:39 BP 99/56 L 03/09/21 11:39 Pulse Ox 97 03/09/21 07:01 Body Mass Index 27.4 Other:?Constitutional : Alert, oriented, not in distress Neck : Normal inspection, Supple Cardiovascular : RRR, S1 S2, no lower extremity edema Respiratory : Good bilateral air entry,? no crackles, wheezes or rhonchi Gastrointestinal:? soft, lax, Normal bowel sounds, Non tender Skin : Warm/Dry, No rash Neurological : Alert & oriented x3, No focal deficit Objective Data Labs CBC & Chem 7: 03/08/21 06:52 03/09/21 05:20 Labs: Laboratory Results - last 24 hr 03/08/21 03/08/21 03/09/21 12:25 18:32 00:25 Sodium 126 L 127 L 126 L Potassium 4.1 4.4 4.0 Chloride 91 L 91 L 92 L Carbon Dioxide 26 23 23 Anion Gap 13 17 15 BUN 82 H* D 72 H 95 H* D Creatinine 1.25 1.79 H 1.84 H Estim Creat Clear Calc 39.9 27.9 27.1 Estimated GFR 42 28 27 Random Glucose 119 H 109 94 Calcium 10.4 H 10.5 H 10.1 03/09/21 03/09/21 05:20 05:20 Sodium Cancelled 129 L Potassium Cancelled 4.4 Chloride Cancelled 94 L Carbon Dioxide Cancelled 25 Anion Gap Cancelled 14 BUN Cancelled 90 H* Creatinine Cancelled 1.74 H Estim Creat Clear Calc Cancelled 28.6 Estimated GFR Cancelled 29 Random Glucose Cancelled 95 Calcium Cancelled 10.0 Procedures Date of Service Date of Service: 03/09/21 Assessment & Plan Time Spent With Patient Time: IMPRESSION:? 1. A 70-year-old female with hyponatremia.? The patient has hypo-osmolar hyponatremia and Initially Euvolemic to me.? She did have neurological symptoms which is improved with slight improvement of her sodium level.? Initially she had inappropriate antidiuretic hormone secretion in the setting of oxcarbazepine use.? She was also on hydrochlorothiazide, which could have worsened her sodium level.? We need to rule out thyroid disease and adrenal disease.? Her TSH level was normal. 3. New REGINO _ ? Now prerenal due to high dose Urea with excess free water removal - Pt also has high BUN / NADINE effect 2. Chronic kidney disease stage 3 at baseline in the setting of longstanding hypertension. ? RECOMMENDATIONS:? At this juncture, I recommend fluid restriction of 1.5 L per day.? Staretd pt on NS at 100 ml/ hr Check Na Q 12 hrly Avoid HCTZ Hold NADINE Pt stares she needs to take Oxacarbamezapine for trigeminal neuralgia.? I have advised the medical team to use 150 mg alternating with 300 mg We can use amlodipine 2.5 mg daily if needed for hypertension control in efuture I recommend avoiding correction of sodium of more than 6 mEq to 8 mEq over the next 24 hours. ? Thank you for allowing me to participate in the medical management of the patient. Total time spent is greater than 50% in coordination of care (as documented) at patient's floor/unit and/or counseling patient: Progress Note: Quality Stroke Does the patient have a stroke diagnosis?: No
[2021-03-09] MEDS: 0.9 % Sodium Chloride 1,000 ML 100 ML IVCONT (14:16)
--- NOTE | 2021-03-09 14:36 | P.PNIM_ITS ---
Subjective Subjective Date of Service: 03/09/21 Review of Systems the patient was seen and evaluated this morning Laying in bed, feels comfortable and better than before on daily basis Reporting feeling dizzy upon standing up, orthostatic Acute kidney injury Sodium of 129 this morning Denies any fever, chills or shortness of breath No reported other overnight events. Systemic review: No fever, chills as the weakness is improving the No chest pain, palpitation No shortness of breath or coughing No abdominal pain, nausea or vomiting No urinary symptoms No any rash or wounds Physical Exam Vital Signs: Vital Signs: Last Vital Signs Temp 97.4 F 03/09/21 11:39 Pulse 91 03/09/21 11:39 Resp 18 03/09/21 11:39 BP 99/56 L 03/09/21 11:39 Pulse Ox 97 03/09/21 07:01 Body Mass Index 27.4 Const: Other: Constitutional : Alert, oriented, not in distress Neck : Normal inspection, Supple Cardiovascular : RRR, S1 S2, no lower extremity edema Respiratory : Good bilateral air entry, no crackles, wheezes or rhonchi Gastrointestinal: soft, lax, Normal bowel sounds, Non tender Skin : Warm/Dry, No rash Neurological : Alert & oriented x3, No focal deficit Objective Data Current Medications Generic Name Dose Route Start Last Admin Trade Name Toneq PRN Reason Stop Dose Admin Acetaminophen 650 mg 03/08/21 00:20 Acetaminophen 325 Mg Tablet PO Q6H PRN Pain, Mild (Pain Scale 1-3) Cyclobenzaprine HCl 5 mg 03/07/21 21:30 03/08/21 20:43 Cyclobenzaprine Hcl 5 Mg Tablet PO 5 mg BEDTIME PRN Administration Muscle Spasm Docusate Sodium 100 mg 03/08/21 00:20 Docusate Sodium 100 Mg Capsule PO DAILY PRN Constipation Enoxaparin Sodium 40 mg 03/08/21 02:00 03/08/21 23:43 Enoxaparin Sodium 40 Mg/0.4 Ml Syringe SUBCUT Not Given Q24H RODERICK Estradiol 0.5 mg 03/10/21 09:00 Estradiol 0.5 Mg Tablet PO MoFr@0900 RODERICK Fluticasone Propionate 2 spray 03/08/21 09:00 03/09/21 08:14 Fluticasone Propionate Nasal 16 Gm [place] NOSTRIL-B 2 spray DAILY RODERICK Administration Guaifenesin/Dextromethorphan 1 tab 03/07/21 21:30 03/09/21 08:45 Guaifenesin Dm 600/30 1 Tab Tab.Er.12h PO 1 tab BID PRN Administration Cough Sodium Chloride 1,000 mls @ 100 mls/hr 03/09/21 13:00 03/09/21 14:16 Ns IVCONT 100 mls/hr .Q10H RODERICK Administration Patient Own 1 each 03/10/21 21:00 Medication ( PO Rosuvastatin 5 Mg) MoFr@2100 RODERICK Ondansetron HCl 4 mg 03/08/21 00:20 Ondansetron Hcl 4 Mg/2 Ml Vial IVPUSH Q8H PRN Nausea and Vomiting Pharmacy Consult 1 each 03/07/21 16:50 Consult Rx Perform Med Rec MISCELLANE ONCE PRN Consult order Pharmacy Consult 1 each 03/07/21 17:46 Consult Rx Perform Med Rec MISCELLANE ONCE PRN Consult order Sodium Chloride 3 ml 03/08/21 00:20 03/09/21 08:19 0.9 % Sodium Chloride Flush 3 Ml Syringe IVFLUSH 3 ml QSHIFT RODERICK Administration Topiramate 25 mg 03/08/21 09:00 03/09/21 08:14 Topiramate 25 Mg Tablet PO 25 mg DAILY RODERICK Administration Vitamin D 25 mcg 03/08/21 09:00 03/09/21 08:13 Cholecalciferol (Vitamin D3) 25 Mcg Tablet PO 25 mcg DAILY RODERICK Administration Zolpidem Tartrate 5 mg 03/08/21 19:51 03/08/21 20:44 Zolpidem Tartrate 5 Mg Tablet PO 5 mg BEDTIME PRN Administration Insomnia Labs CBC & Chem 7: 03/08/21 06:52 03/09/21 05:20 Labs: Laboratory Results - last 24 hr 03/08/21 03/09/21 03/09/21 18:32 00:25 05:20 Anion Gap 17 15 Cancelled Estim Creat Clear Calc 27.9 27.1 Cancelled Estimated GFR 28 27 Cancelled Random Glucose 109 94 Cancelled Calcium 10.5 H 10.1 Cancelled 03/09/21 05:20 Anion Gap 14 Estim Creat Clear Calc 28.6 Estimated GFR 29 Random Glucose 95 Calcium 10.0 Assessment and Plan (1) Acute hyponatremia: Status: Acute (2) Acute kidney injury: Status: Acute (3) Postural hypotension: Status: Acute Assessment and Plan: 70-year-old female with past medical history of hypertension, CKD, trigeminal neuralgia on Tegretol presents to the hospital with abnormal labs found to have sodium of 120 # acute hyponatremia Secondary to Tegretol and hydrochlorothiazide DC HCT Discontinue urea Monitor BMP Plan to restart Tegretol at time of discharge and follow as outpatient with nephrology Nephrology input appreciated # acute kidney injury Creatinine of 1.7 from normal baseline Seems to be prerenal VS ATN Hold nephrotoxic medications Hold urea The start gentle hydration Monitor intake and output # hypotension Postural, related to acute kidney injury and NADINE-inhibitor Hold lisinopril Gentle hydration # insomnia Use Ambien Should improve with resolving hyponatremia # muscle spasm From hyponatremia Use Flexeril as needed # hypertension continue home medications # hyperlipidemia continue statin DVT prophylaxis Lovenox Quality Stroke Does the patient have a stroke diagnosis?: No VTE Prior VTE?: No VTE Risk Level:: Medical - moderate - high VTE Device Contraindication: Treatment Not Indicated VTE Drug Contraindication: N/A - Med Ordered
[2021-03-09] MEDS: Zolpidem Tartrate 5 MG TABLET PO (21:18)
[2021-03-10] MEDS: 0.9 % Sodium Chloride 1,000 ML 100 ML IVCONT (01:54)
[2021-03-10 03:23] VITALS: BP 109/61; PULSE 77; RESP 18; TEMP 37; O2SAT 97
[2021-03-10 06:31] LABS: Anion Gap 12 (12-20); Blood Urea Nitrogen 72 mg/dL (9-16); Calcium 9.2 mg/dL (8.4-10.2); Carbon Dioxide 23 mmol/L (22-29); Chloride 106 mmol/L (96-108); Creatinine Clr Calc Pharmacy 35.1; Estimated Glomerular Filt Rate 37; Glucose Random 92 mg/dL (60-115); Potassium 4.9 mmol/L (3.3-5.1); Sodium 136 mmol/L (135-145)
[2021-03-10 07:18] VITALS: BP 110/58; PULSE 70; RESP 18; TEMP 36.1; O2SAT 98
[2021-03-10] MEDS: Topiramate 25 MG TABLET PO (07:41)
[2021-03-10] MEDS: Fluticasone Propionate Nasal 16 GM SPRAY 2 SPRAY NOSTRIL-B (07:41)
[2021-03-10] MEDS: 0.9 % Sodium Chloride Flush 3 ML SYRINGE IVFLUSH (07:41)
[2021-03-10] MEDS: estradioL 0.5 MG TABLET PO (07:41)
[2021-03-10] MEDS: Cholecalciferol (Vitamin D3) 25 MCG TABLET PO (07:41)
[2021-03-10 08:00] VITALS: BP 127/62; PULSE 72
[2021-03-10 08:09] VITALS: BP 105/65; BP 123/66; PULSE 88; PULSE 91
--- NOTE | 2021-03-10 09:05 | PM.PNNEP ---
Subjective Subjective Date of Service: 03/10/21 Interval history: Pt has no c/o dizziness BP is better Na is normal Physical Exam Vital Signs: Vital Signs: Last Vital Signs Temp 97 F 03/10/21 07:18 Pulse 91 03/10/21 08:09 Resp 18 03/10/21 07:18 BP 105/65 03/10/21 08:09 Pulse Ox 98 03/10/21 07:18 Body Mass Index 27.4 Other:?Constitutional : Alert, oriented, not in distress Neck : Normal inspection, Supple Cardiovascular : RRR, S1 S2, no lower extremity edema Respiratory : Good bilateral air entry,? no crackles, wheezes or rhonchi Gastrointestinal:? soft, lax, Normal bowel sounds, Non tender Skin : Warm/Dry, No rash Neurological : Alert & oriented x3, No focal deficit Objective Data Labs CBC & Chem 7: 03/08/21 06:52 03/10/21 05:22 Labs: Laboratory Results - last 24 hr 03/10/21 05:22 Sodium 136 Potassium 4.9 Chloride 106 Carbon Dioxide 23 Anion Gap 12 BUN 72 H Creatinine 1.42 H Estim Creat Clear Calc 35.1 Estimated GFR 37 Random Glucose 92 Calcium 9.2 D Procedures Date of Service Date of Service: 03/10/21 Assessment & Plan Time Spent With Patient Time: 1. A 70-year-old female with hyponatremia.? The patient has hypo-osmolar hyponatremia and Initially Euvolemic to me.? She did have neurological symptoms which is improved with slight improvement of her sodium level.? Initially she had? inappropriate antidiuretic hormone secretion in the setting of oxcarbazepine use.? She was also on hydrochlorothiazide, which could have worsened her sodium level.? ?We need to rule out thyroid disease and adrenal disease.? Her TSH level was normal. 3. New REGINO _ ? Now prerenal due to high dose Urea with excess free water removal - Pt also has high BUN / NADINE effect 2. Chronic kidney disease stage 3 at baseline in the setting of longstanding hypertension. ? RECOMMENDATIONS:? Continue fluid restriction of 1.5 L per day.? D/c IVF Avoid HCTZ Hold NADINE- Can restart 50 % dose before d/c Pt stares she needs to take? Oxacarbamezapine for? trigeminal neuralgia.? I have advised the medical team to use 150 mg alternating with 300 mg with Urea 15 G daily We can use amlodipine 2.5 mg daily? if needed for hypertension control in the future ?Need f/u in our office Thank you for allowing me to participate in the medical management of the patient. Total time spent is greater than 50% in coordination of care (as documented) at patient's floor/unit and/or counseling patient: Progress Note: Quality Stroke Does the patient have a stroke diagnosis?: No
[2021-03-10 11:46] VITALS: BP 134/75; PULSE 72; RESP 20; TEMP 36.8; O2SAT 98
--- NOTE | 2021-03-10 12:05 | MHC.CM.PN ---
pt dcd no skilled services ordered by
--- NOTE | 2021-03-10 12:50 | P.DS_ITS ---
DS: Providers Provider Date of Service: 03/10/21 Date of admission: 03/07/21 21:30 Primary care physician: Deedee Monaco MD Consults: 03/07/21 18:23 Consult to Nephrology Stat Consulting Provider: [facility] Reason for consultation: hyponatremia 03/08/21 00:20 Consult to Nephrology Routine Consulting Provider: [facility] Reason for consultation: hyponatemia Has provider been notified: Yes DS: Diagnosis Discharge Diagnosis (1) Acute hyponatremia: Status: Acute (2) Acute kidney injury: Status: Acute (3) Postural hypotension: Status: Acute DS: Medications Discharge Medications Home Medications: Home Medications Medication Instructions Recorded Confirmed cholecalciferol (vitamin D3) 25 25 mcg PO DAILY 07/11/20 03/07/21 mcg (1,000 unit) capsule coenzyme Q10 100 mg capsule 100 mg PO DAILY 07/11/20 03/07/21 (CoQ-10) topiramate 25 mg tablet 25 mg PO DAILY 01/24/21 03/07/21 estradiol 0.5 mg tablet 0.5 mg PO MOFR tab 02/28/21 03/07/21 oxcarbazepine 150 mg tablet 300 mg PO DAILY tab 02/28/21 03/07/21 rosuvastatin 5 mg tablet 5 mg PO MOFR 03/07/21 03/07/21 Previous Rx's Medication Instructions Recorded fluticasone propionate 50 2 spray INTRANASAL DAILY #16 g 03/07/21 mcg/actuation nasal spray,suspension lisinopril 40 mg tablet 0.5 tab PO DAILY #0 tab 03/10/21 urea 15 gram oral powder packet 1 packet PO DAILY 30 Days ea 03/10/21 DS: Summary Hospital Course Hospital Course: Admission note HPI This is a 70-year-old female with past medical history of trigeminal neuralgia, history of COVID, HTN, HLD, history of seasonal allergies, lumbar degenerative disc disease among others who presents hospital with multiple complaints.? Patient reports that about 2 weeks ago her Tegretol was increased from 150-300 due to breakthrough trigeminal neurology flares.? She reports that a week later she started developing headache, muscle cramps, allergy flare, and feeling gener ally unwell.? She was also feeling dizziness and insomnia.? Patient reports that she has not slept in 3 days, she has significant muscle spasms in her arms and legs and that has kept her up mostly as well.? She went to her PCP today to ask for something for sleep, had labs done which showed her sodium to be low and therefore was sent to the ED. Denies any chest pain, headache, no change in vision, no abdominal pain nausea vomiting, diarrhea constipation, no urinary symptoms and no lower extremity edema. Vitals on arrival significant for temp of 98.0?, heart rate of 80, respiratory rate of 18, blood pressure of 149/88, satting 98% on room air Labs are significant for WBC count of 5, hemoglobin of 14.3 sodium of 120 (136 from November 24), chloride of 87, serum osmolality of 256, UA negative, urine osmolality of 263. Patient was discussed with Nephrology, felt her hyponatremia was due to Tegretol Hospital course the patient was treated with holding Tegretol, hydrochlorothiazide and li sinopril and starting urea with good response over the course of hospital stay as his sodium number improved back to normal within 4 days. She was noted to have acute kidney injury during that time so lisinopril was discontinued along with urea with starting IV fluid that showed good response as her kidney function improved back to baseline within a day. She was followed by Nephrology during the hospital stay who recommended fluid restriction and to be followed as outpatient after discharge. Fluid restriction 1.5 L a day Discontinue hydrochlorothiazide Decrease lisinopril to 20 mg daily Start urea 15 daily To repeat chemistry outpatient To follow-up with Nephrology as outpatient Time Spent with Patient Time attestation: Total time spent providing and/or coordinating discharge services: Discharge coordination time: Greater than 30 minutes Quality: Stroke Does the patient have a stroke diagnosis?: No Physical Exam Vital Signs: Vital Signs: Last Vital Signs Temp 98.3 F 03/10/21 11:46 Pulse 72 03/10/21 11:46 Resp 20 03/10/21 11:46 BP 134/75 03/10/21 11:46 Pulse Ox 98 03/10/21 11:46 Body Mass Index 27.4 Const: Other: Constitutional : Alert, oriented, not in distress Neck : Normal inspection, Supple Cardiovascular : RRR, S1 S2, no lower extremity edema Respiratory : Good bilateral air entry, no crackles, wheezes or rhonchi Gastrointestinal: soft, lax, Normal bowel sounds, Non tender Skin : Warm/Dry, No rash Neurological : Alert & oriented x3, No focal deficit DS: Data Data Completed and Pending Labs on day of discharge: Laboratory Results - last 24 hr 03/10/21 05:22 Sodium 136 Potassium 4.9 Chloride 106 Carbon Dioxide 23 Anion Gap 12 BUN 72 H Creatinine 1.42 H Estim Creat Clear Calc 35.1 Estimated GFR 37 Random Glucose 92 Calcium 9.2 D Discharge Plan Discharge Patient Disposition: Home, Self-Care Discharge Diagnosis: Acute hyponatremia Acute kidney injury Referrals: Deedee Monaco MD [Primary Care Provider] - 1 Week Discharge Medications: New urea 15 gram powder in packet 1 packet PO DAILY 30 Days RF: 1 Continued rosuvastatin 5 mg tablet 5 mg PO MOFR RF: 0 topiramate 25 mg tablet 25 mg PO DAILY RF: 0 fluticasone propionate 50 mcg/actuation spray,suspension 2 spray intranasal DAILY Qty: 16 RF: 0 cholecalciferol (vitamin D3) 25 mcg (1,000 unit) capsule 25 mcg PO DAILY RF: 0 coenzyme Q10 [CoQ-10] 100 mg capsule 100 mg PO DAILY RF: 0 oxcarbazepine 150 mg tablet 300 mg PO DAILY RF: 0 estradiol 0.5 mg tablet 0.5 mg PO MOFR RF: 0 Changed lisinopril 40 mg tablet 0.5 tab PO DAILY Qty: 0 RF: 0 Discontinued hydrochlorothiazide 25 mg tablet 12.5 mg PO QAM RF: 0 Discharge Orders: Discharge Order (Routine); Ordered 03/10/21 Ordered By: Dixie Parra Diet: advance to usual diet and other Activity on Discharge: As tolerated Stand Alone Forms: Patient Portal Discharge page Other Ambulatory Orders: Basic Metabolic Panel (Routine) Timeframe: [id number] Facility: [facility] - Location: Laboratory Ordered By: Dixie Parra Care Plan Goals: Read below Health Concerns: Read below Plan of Treatment: You were admitted to the hospital for treatment of low sodium level. Responded well to treatment of urea as you were evaluated by Dr. Bacon from Nephrology. Your blood pressure was noted to be solved so lisinopril dose was decreased. Your kidney function worsened a little before improving back to baseline Assessment: Start urea daily Decrease lisinopril to half a tablet a day, 20 mg daily Discontinue hydrochlorothiazide To repeat blood test next week Continue to monitor your blood pressure at home to follow-up with nephrology clinic as outpatient Discharge Date/Time: 03/10/21 12:15
== END 2021-03-10 12:15 | disposition home or self-care (01) | DRG 641 ==
LOC: HO.ED 18:47 → HO.EDOVER 22:01 → HO.IMC 03-08 07:27
PROVIDERS: Nurse Practitioner Family; Physician Assistant; Admitting Provider Internal Medicine; Emergency Provider Emergency Medicine; PCP Internal Medicine; Visit Provider Student in an Organized Health Care Education/Training Program
DX: E87.1 Hypo-osmolality and hyponatremia (principal); N17.9 Acute kidney failure, unspecified; I95.9 Hypotension, unspecified; G50.0 Trigeminal neuralgia; Z20.822 Contact with and (suspected) exposure to COVID-19; E78.5 Hyperlipidemia, unspecified; G47.00 Insomnia, unspecified; M62.838 Other muscle spasm; I12.9 Hypertensive chronic kidney disease with stage 1 through stage 4 chronic kidney disease, or unspecified chronic kidney disease; N18.30 Chronic kidney disease, stage 3 unspecified; T42.1X5A Adverse effect of iminostilbenes, initial encounter; Y92.9 Unspecified place or not applicable; Z86.16 Personal history of COVID-19; Z79.51 Long term (current) use of inhaled steroids; Z79.899 Other long term (current) drug therapy
CPT/HCPCS: 36415; 80048; 80076; 81003; 83735; 83930; 83935; 84300; 85025; 87635; 99285

== ENCOUNTER 2021-03-17 07:47 | Outpatient (REF) | payer MEDICARE, OTHER, SELFPAY ==
[2021-03-17 11:37] LABS: Anion Gap 13 (12-20); Blood Urea Nitrogen 29 mg/dL (9-16); Calcium 9.3 mg/dL (8.4-10.2); Carbon Dioxide 20 mmol/L (22-29); Chloride 114 mmol/L (96-108); Estimated Glomerular Filt Rate 41; Glucose Random 86 mg/dL (60-115); Potassium 4.2 mmol/L (3.3-5.1); Sodium 143 mmol/L (135-145)
== END 2021-03-17 07:48 | disposition home or self-care (01) ==
LOC: HO.HMGCLDS 07:47
PROVIDERS: PCP Internal Medicine; Visit Provider Student in an Organized Health Care Education/Training Program
DX: E87.1 Hypo-osmolality and hyponatremia (principal)
CPT/HCPCS: 36415; 80048

== ENCOUNTER 2021-04-04 08:03 | Outpatient (REF) | payer MEDICARE, OTHER, SELFPAY ==
[2021-04-04 12:23] LABS: Anion Gap 15 (12-20); Blood Urea Nitrogen 25 mg/dL (9-16); Calcium 9.8 mg/dL (8.4-10.2); Carbon Dioxide 21 mmol/L (22-29); Chloride 111 mmol/L (96-108); Estimated Glomerular Filt Rate 44; Potassium 4.9 mmol/L (3.3-5.1); Sodium 142 mmol/L (135-145)
== END 2021-04-04 08:04 | disposition home or self-care (01) ==
LOC: HO.HMGCLDS 08:03
PROVIDERS: PCP Internal Medicine; Visit Provider Internal Medicine Nephrology
DX: I12.9 Hypertensive chronic kidney disease with stage 1 through stage 4 chronic kidney disease, or unspecified chronic kidney disease (principal); N18.31 Chronic kidney disease, stage 3a
CPT/HCPCS: 36415; 80051; 82310; 82565; 84520

== ENCOUNTER 2021-04-13 08:49 | Outpatient (REF) | payer MEDICARE, OTHER, SELFPAY ==
--- NOTE | 2021-04-13 09:46 | P.BOP_ITS ---
Brief Operative Note Date of Service: 04/13/21 Pre-op diagnosis: Multinodular Thyroid. Post-op diagnosis: same Procedure: This is doctor Marleni Lang. This is an ultrasound-guided fine-needle aspiration report. Date of Examination: 04/13/2021 Indication: Multinodular Thyroid Porcedure: Procedure was explained to the patient. Alternatives, the risk and benefits were discussed. Written consent was obtained. A time-out was also obtained. After sterile preparation, fine-needle aspiration of a right lower pole 2.2 cm thyroid nodule was performed using direct ultrasound guidance to confirm accurate needle placement. Four aspirations were made using 27 gauge needles. An additional 2 aspirations were made using 25 guage needles. Samples were submitted for cytology. One pass was dedicated for [employer] sequencing pattern drum maker testing. We then turned our attention to a right mid pole 2.1 cm thyroid nodule. Fine- needle aspiration of this thyroid nodule was performed using direct ultrasound guidance to confirm accurate needle placement. Four aspirations were made using 27 gauge needles. Samples were submitted for cytology. One pass was dedicated for [employer] Gene sequencing pattern drum maker testing. The patient tolerated the procedure well. Aftercare instructions were provided. Impression: Uncomplicated fine needle aspiration biopsy of a right lower pole 2.2 cm thyroid nodule and a right mid pole 2.1 cm thyroid nodule under ultrasound guidance. Surgeon: Marleni Lang, DO Was an [employer] used for this Procedure?: No Estimated blood loss (mL): 0
== END 2021-04-13 08:50 | disposition home or self-care (01) ==
LOC: HO.US 08:49
PROVIDERS: PCP Internal Medicine; Visit Provider Internal Medicine
DX: E04.2 Nontoxic multinodular goiter (principal)
CPT/HCPCS: 10005; 10006; 88172; 88173; 88177; 88305

== ENCOUNTER → 2021-05-08 11:07 | Outpatient (BNVA) | payer MEDICARE, OTHER, SELFPAY | PROVIDERS: PCP Internal Medicine; Visit Provider Internal Medicine | DX: E04.2 Nontoxic multinodular goiter (principal) | CPT/HCPCS: Q3014 ==

== ENCOUNTER 2021-05-30 08:39 | Outpatient (REF) | payer MEDICARE, OTHER, SELFPAY ==
[2021-05-30 12:20] LABS: Anion Gap 13 (12-20); Blood Urea Nitrogen 19 mg/dL (9-16); Calcium 9.8 mg/dL (8.4-10.2); Carbon Dioxide 21 mmol/L (22-29); Chloride 112 mmol/L (96-108); Estimated Glomerular Filt Rate 41; Potassium 4.3 mmol/L (3.3-5.1); Sodium 142 mmol/L (135-145)
== END 2021-05-30 08:40 | disposition home or self-care (01) ==
LOC: HO.HMGCLDS 08:39
PROVIDERS: PCP Internal Medicine; Visit Provider Internal Medicine Nephrology
DX: I12.9 Hypertensive chronic kidney disease with stage 1 through stage 4 chronic kidney disease, or unspecified chronic kidney disease (principal); N18.31 Chronic kidney disease, stage 3a
CPT/HCPCS: 36415; 80051; 82310; 82565; 84520

== ENCOUNTER 2021-07-25 07:40 | Outpatient (REF) | payer MEDICARE, OTHER, SELFPAY ==
[2021-07-25 12:06] LABS: Alanine Aminotransferase 16 U/L (0-31); Aspartate Amino Transferase 18 U/L (5-31); Cholesterol 234 mg/dL; HDL Cholesterol 51 mg/dL; LDL Cholesterol Calculated 141 mg/dl; Triglycerides 210 mg/dL
[2021-07-25 12:10] LABS: Vitamin D 25-OH Total 23.4 ng/mL (>30)
== END 2021-07-25 07:41 | disposition home or self-care (01) ==
LOC: HO.HMGCLDS 07:40
PROVIDERS: PCP Internal Medicine; Visit Provider Internal Medicine
DX: E78.5 Hyperlipidemia, unspecified (principal); E89.40 Asymptomatic postprocedural ovarian failure
CPT/HCPCS: 36415; 80061; 82306; 84450; 84460

== ENCOUNTER 2021-07-29 16:38 | Emergency (ER) | payer MEDICARE, OTHER, SELFPAY | END 2021-07-29 18:59 | disposition left against medical advice (07) | PROVIDERS: Emergency Provider Emergency Medicine; PCP Internal Medicine | DX: R51.9 Headache, unspecified (principal) ==

== ENCOUNTER 2021-08-08 08:11 | Outpatient (REF) | payer MEDICARE, OTHER, SELFPAY ==
[2021-08-08 11:56] LABS: Anion Gap 10 (12-20); Blood Urea Nitrogen 14 mg/dL (9-16); Calcium 9.3 mg/dL (8.4-10.2); Carbon Dioxide 23 mmol/L (22-29); Chloride 112 mmol/L (96-108); Estimated Glomerular Filt Rate 49; Glucose Fasting 85 mg/dL (60-99); Sodium 141 mmol/L (135-145)
== END 2021-08-08 08:12 | disposition home or self-care (01) ==
LOC: HO.HMGCLDS 08:11
PROVIDERS: PCP Internal Medicine; Visit Provider Internal Medicine
DX: N18.30 Chronic kidney disease, stage 3 unspecified (principal)
CPT/HCPCS: 36415; 80048

== ENCOUNTER 2021-10-24 07:58 | Outpatient (REF) | payer MEDICARE, OTHER, SELFPAY ==
[2021-10-24 12:13] LABS: Alanine Aminotransferase 16 U/L (0-31); Aspartate Amino Transferase 17 U/L (5-31); Cholesterol 201 mg/dL; HDL Cholesterol 57 mg/dL; LDL Cholesterol Calculated 115 mg/dl; Triglycerides 145 mg/dL
[2021-10-24 12:15] LABS: Anion Gap 15 (12-20); Blood Urea Nitrogen 19 mg/dL (9-16); Calcium 9.6 mg/dL (8.4-10.2); Carbon Dioxide 22 mmol/L (22-29); Chloride 109 mmol/L (96-108); Estimated Glomerular Filt Rate 50; Potassium 4.6 mmol/L (3.3-5.1); Sodium 141 mmol/L (135-145)
[2021-10-24 12:22] LABS: Vitamin D 25-OH Total 33.4 ng/mL (>30)
== END 2021-10-24 07:59 | disposition home or self-care (01) ==
LOC: HO.HMGCLDS 07:58
PROVIDERS: Absent Provider Internal Medicine Nephrology; Visit Provider Internal Medicine
DX: E78.5 Hyperlipidemia, unspecified (principal); E89.40 Asymptomatic postprocedural ovarian failure; M85.852 Other specified disorders of bone density and structure, left thigh; I12.9 Hypertensive chronic kidney disease with stage 1 through stage 4 chronic kidney disease, or unspecified chronic kidney disease; N18.31 Chronic kidney disease, stage 3a
CPT/HCPCS: 36415; 80051; 80061; 82306; 82310; 82565; 84450; 84460; 84520

== ENCOUNTER 2022-01-26 08:52 | Outpatient (REF) | payer MEDICARE, OTHER, SELFPAY ==
[2022-01-26 11:20] LABS: MANUAL DIFF FLAG NO
[2022-01-26 11:30] LABS: Basophils Absolute Auto 0.1 X10*3/uL (0.0-0.2); Basophils Percent Auto 1.5 % (0-2); Eosinophils Absolute Auto 0.1 X10*3/uL (0.0-0.4); Eosinophils Percent Auto 1.8 % (0-4); Hematocrit 40.6 % (37.0-47.0); Hemoglobin 13.2 g/dl (12.0-16.0); Imm Gran Abs Auto 0.01 X10*3/uL (0.00-0.03); Imm Gran Pct Auto 0.3 % (0.0-0.4); Lymphocytes Absolute Auto 0.9 X10*3/uL (1.2-4.9); Mean Corpuscular HGB Conc 32.5 g/dl (31.0-35.0); Mean Corpuscular Hemoglobin 29.9 pg (27.0-33.0); Mean Corpuscular Volume 91.9 fL (80.0-98.0); Mean Platelet Volume 11.1 fL (9.4-12.3); Monocytes Absolute Auto 0.5 X10*3/uL (0.1-1.2); Monocytes Percent Auto 13.1 % (2-11); Neutrophils Absolute Auto 2.3 x10*3/uL (2.0-8.3); Neutrophils Percent Auto 59.3 % (45-73); Platelet Count 239 X10*3/uL (160-400); Red Blood Count 4.42 X10*6/uL (4.20-5.50); Red Cell Distribution Width 12.7 % (11.0-16.0); White Blood Count 3.9 X10*3/uL (4.8-10.8)
[2022-01-26 11:53] LABS: Alanine Aminotransferase 16 U/L (0-31); Albumin Level 4.3 g/dL (3.5-5.0); Alkaline Phosphatase 62 U/L (39-117); Anion Gap 12 (12-20); Aspartate Amino Transferase 17 U/L (5-31); Bilirubin Total 0.5 mg/dL (0.0-1.0); Blood Urea Nitrogen 19 mg/dL (9-16); Calcium 9.8 mg/dL (8.4-10.2); Carbon Dioxide 25 mmol/L (22-29); Chloride 110 mmol/L (96-108); Cholesterol 197 mg/dL; Estimated Glomerular Filt Rate 43; Glucose Fasting 102 mg/dL (60-99); HDL Cholesterol 50 mg/dL; LDL Cholesterol Calculated 118 mg/dl; Potassium 4.7 mmol/L (3.3-5.1); Sodium 142 mmol/L (135-145); Triglycerides 147 mg/dL
[2022-01-26 12:01] LABS: TSH reflex Free T4 0.66 uIU/mL (0.32-4.0)
[2022-01-26 12:11] LABS: Vitamin B12 301 pg/mL (200-900)
== END 2022-01-26 08:53 | disposition home or self-care (01) ==
LOC: HO.HMGCLDS 08:52
PROVIDERS: Visit Provider Internal Medicine
DX: Z00.01 Encounter for general adult medical examination with abnormal findings (principal); E78.5 Hyperlipidemia, unspecified; E89.40 Asymptomatic postprocedural ovarian failure; M85.852 Other specified disorders of bone density and structure, left thigh; I12.9 Hypertensive chronic kidney disease with stage 1 through stage 4 chronic kidney disease, or unspecified chronic kidney disease; N18.30 Chronic kidney disease, stage 3 unspecified; R53.83 Other fatigue
CPT/HCPCS: 36415; 80053; 80061; 82306; 82550; 82607; 82746; 84443; 85025

== ENCOUNTER 2022-02-01 07:53 | Outpatient (REF) | payer MEDICARE, OTHER, SELFPAY ==
--- NOTE | ~2022-02-01 | MM_ITS ---
EXAMINATION: MM SCREENING DIGITAL BREAST TOMOSYNTHESIS, BILATERAL CLINICAL INFORMATION: Screening. Asymptomatic. The lifetime risk of breast cancer based on the Tyrer-Cuzick Model is 3.3%. COMPARISON: Mammography: August 03, 2020 and studies dating back to August 19, 2013 TECHNIQUE: Digital breast tomosynthesis is performed in both the craniocaudal and mediolateral oblique views along with computer-aided detection (CAD). Synthesized 2D images are generated from the tomosynthesis. FINDINGS: There are scattered areas of fibroglandular density (ACR BI-RADS breast composition Category b). There are no significant masses, abnormal calcifications, or other abnormalities. MM/MM tomosynthesis screening BI IMPRESSION: There are no significant changes from prior study. ASSESSMENT: BI-RADS 1: Negative RECOMMENDATION: Routine annual mammography screening. This patient's information was entered into a reminder system with a target due date for their next mammogram.
== END 2022-02-01 07:54 | disposition home or self-care (01) ==
LOC: HO.MAMMO 07:53
PROVIDERS: PCP Internal Medicine; Visit Provider Internal Medicine
DX: Z12.31 Encounter for screening mammogram for malignant neoplasm of breast (principal)
CPT/HCPCS: 77063; 77067

== ENCOUNTER 2022-04-18 10:04 | Outpatient (REF) | payer MEDICARE, OTHER, SELFPAY ==
--- NOTE | ~2022-04-18 | US_ITS ---
EXAMINATION: US THYROID CLINICAL INFORMATION: Nontoxic multinodular goiter.. COMPARISON: Ultrasound soft tissue head/neck thyroid dated 02/10/2021 and 01/13/2020. TECHNIQUE: Linear transducer grayscale and color Doppler examination with attention to the region of the thyroid. FINDINGS: SIZE: Measurements of the thyroid lobes and nodules are given in sagittal, anteroposterior and transverse dimensions respectively. Right Thyroid Lobe: 5.8 x 1.7 x 1.8 cm, volume 9.2 mL. Previously 6.0 x 1.9 x 1.6 cm, volume 9.4 mL. Parenchyma: The gland echotexture is heterogeneous. Thyroid vascularity is increased. Left Thyroid Lobe: Surgically absent. Isthmus: 0.37 cm in maximum AP dimension. Previously 0.41 cm. Estimated total number of nodules greater than or equal to 1 cm: 3. there are numerable predominantly spongiform nodules. Comparison with prior exam is difficult. The 2 nodules in the right mid pole and right lower pole are measured as 2 separate nodules and may been previously measured as 1 nodule. Scientific In[employer] Leader nodules are described as follows: 1. Location: Right superior. Size: 1.0 x 0.7 x 0.75 cm, volume 0.27 mL. Previously: 0.9 x 0.6 x 0.1 cm, volume 0.28 mL. Nodule characteristics: Composition: Spongiform (0). Echogenicity: Anechoic (0). Shape: Not taller than wide (0). Margins: Smooth (0). Echogenic Foci: None (0). ACR TI-RADS total points: 0 Previous: 0 ACR TI-RADS category: 1 Previous: 1 Significant change in size (>/= 20% in 2 dimensions and minimal increase of 2 mm or 50% or greater increase in volume): Change in features: Change in ACR TI-RADS risk category: 2. Location: Right mid. Size: 1.1 x 0.8 x 1.0 cm, volume 0.48 mL. Previously: 2.1 x 1.5 x 1.4 cm, volume 2.3 mL. Composition: Spongiform (0). Echogenicity: Anechoic (0). Shape: Not taller than wide (0). Margins: Smooth (0). Echogenic Foci: None (0). ACR TI-RADS total points: 0 Previous: 0 ACR TI-RADS category: 1 Previous: 1 Significant change in size (>/= 20% in 2 dimensions and minimal increase of 2 mm or 50% or greater increase in volume): Change in features: Change in ACR TI-RADS risk category: 3. Location: Right mid. Size: 0.97 x 0.52 x 0.75 cm, volume 0.2 mL. Previously: Not seen on the previous study. Composition: Spongiform (0). Echogenicity: Anechoic (0). Shape: Not taller than wide (0). Margins: Smooth (0). Echogenic Foci: None (0). ACR TI-RADS total points: 0 ACR TI-RADS category: 1 4. Location: Right inferior. Size: 0.97 x 0.45 x 0.51 cm, volume 0.12 mL. Previously: Not seen on the previous study. Composition: Spongiform (0). Echogenicity: Anechoic (0). Shape: Not taller than wide (0). Margins: Smooth (0). Echogenic Foci: None (0). ACR TI-RADS total points: 0 ACR TI-RADS category: 1 5. Location: Right inferior. Size: 1.0 x 0.67 x 0.91 cm, volume 0.32 mL. Previously: 2.2 x 1.0 x 1.2 cm, volume 1.3 mL. Composition: Spongiform (0). Echogenicity: Anechoic (0). Shape: Not taller than wide (0). Margins: Smooth (0). Echogenic Foci: None (0). ACR TI-RADS total points: 0 Previous: 6 ACR TI-RADS category: 1 Previous: 4 Significant change in size (>/= 20% in 2 dimensions and minimal increase of 2 mm or 50% or greater increase in volume): Change in features: Change in ACR TI-RADS risk category: NODES: No lymphadenopathy is seen in the tissue surrounding the thyroid gland. US/US thyroid IMPRESSION: Heterogeneous slightly enlarged right lobe with multiple predominantly spongiform nodules. Differences in measurement of nodules may be due to interobserver variation.. ACR TI-RADS RECOMMENDATION REFERENCE: Ultrasound-guided fine-needle aspiration, followup ultrasound, no further follow up. * TR1 (0 point) and TR 2 (2 points): No FNA or follow up * TR3 (3 points): FNA if more than or equal to 2.5 cm in maximum dimension, followup ultrasound in 1, 3 and 5 years if 1.5 to 2.4 cm in maximum dimension. * TR4 (4-6 points): FNA if more than or equal to 1.5 cm in maximum dimension, followup ultrasound in 1, 2, 3 and 5 years if 1 to 1.4 cm in maximum dimension. * TR5 (more than or equal to 7 points): FNA if more than or equal to 1 cm in maximum dimension, followup ultrasound every year for 5 years if 0.5 to 0.9 cm in maximum dimension. * TR3, TR4 or TR5 nodules that are below the size threshold for follow up receive no follow up.
[2022-04-18 12:34] LABS: Free T4 (Free Thyroxine) 0.92 ng/dL (0.71-1.85); Thyroid Stimulating Hormone 0.82 uIU/mL (0.32-4.0)
== END 2022-04-18 10:05 | disposition home or self-care (01) ==
LOC: HO.HMGCX 10:04
PROVIDERS: PCP Internal Medicine; Visit Provider Internal Medicine
DX: E04.2 Nontoxic multinodular goiter (principal)
CPT/HCPCS: 36415; 76536; 84439; 84443

== ENCOUNTER → 2022-05-07 11:28 | Outpatient (BNVA) | payer MEDICARE, OTHER, SELFPAY | PROVIDERS: PCP Internal Medicine; Visit Provider Internal Medicine | DX: E04.2 Nontoxic multinodular goiter (principal) | CPT/HCPCS: 99212 ==

== ENCOUNTER 2022-06-27 08:41 | Outpatient (REF) | payer MEDICARE, OTHER, SELFPAY ==
--- NOTE | 2022-06-27 09:17 | P.BOP_ITS ---
Brief Operative Note Date of Service: 06/27/22 Pre-op diagnosis: Multinodular Thyroid Procedure: The Patient presented for US with potential FNA biopsy of the thyroid. She had a prior FNA biopsy of her RLP 2.2 cm and her RMP 2.1 cm thyroid nodules. These nodules were found to have significantly decreased in size. She did have a new RUP nodule, which was hypoechoic and mixed cystic appearing. This measured 0.9 cm in greatest dimension during today's exam and had regular margins. No FNA biopsy was indicated. She will have a repeat thyroid US in 1 years time and F/U thereafter. All questions were answered. Surgeon: Marleni Lang, DO Was an [employer] used for this Procedure?: No Estimated blood loss (mL): 0
== END 2022-06-27 08:42 | disposition home or self-care (01) ==
LOC: HO.US 08:41
PROVIDERS: Visit Provider Internal Medicine
DX: E04.2 Nontoxic multinodular goiter (principal)
CPT/HCPCS: 76536

== ENCOUNTER 2022-07-27 07:45 | Outpatient (REF) | payer MEDICARE, OTHER, SELFPAY ==
[2022-07-27 12:15] LABS: Alanine Aminotransferase 17 U/L (0-31); Aspartate Amino Transferase 18 U/L (5-31); Cholesterol 224 mg/dL; HDL Cholesterol 57 mg/dL; LDL Cholesterol Calculated 138 mg/dl; Triglycerides 148 mg/dL
[2022-07-27 12:36] LABS: Vitamin D 25-OH Total 31.9 ng/mL (>30)
== END 2022-07-27 07:46 | disposition home or self-care (01) ==
LOC: HO.HMGCLDS 07:45
PROVIDERS: PCP Internal Medicine; Visit Provider Internal Medicine
DX: E89.40 Asymptomatic postprocedural ovarian failure (principal); M85.852 Other specified disorders of bone density and structure, left thigh; E78.5 Hyperlipidemia, unspecified
CPT/HCPCS: 36415; 80061; 82306; 84450; 84460

== ENCOUNTER 2023-01-01 07:47 | Outpatient (REF) | payer MEDICARE, OTHER, SELFPAY ==
[2023-01-01 11:50] LABS: Anion Gap 12 (12-20); Blood Urea Nitrogen 16 mg/dL (9-16); Calcium 9.8 mg/dL (8.4-10.2); Carbon Dioxide 25 mmol/L (22-29); Chloride 108 mmol/L (96-108); Estimated Glomerular Filt Rate 47; Potassium 4.5 mmol/L (3.3-5.1); Sodium 140 mmol/L (135-145)
[2023-01-01 11:54] LABS: Alanine Aminotransferase 14 U/L (0-31); Aspartate Amino Transferase 16 U/L (5-31); Cholesterol 230 mg/dL; HDL Cholesterol 60 mg/dL; LDL Cholesterol Calculated 138 mg/dl; Triglycerides 162 mg/dL
[2023-01-01 12:07] LABS: Creatinine Urine 235.02 mg/dL; Protein/Creatinine Ratio, Ur 0.05 (<0.2); Total Protein Urine Random 12 mg/dL (<12)
[2023-01-01 12:18] LABS: Thyroid Stimulating Hormone 1.02 uIU/mL (0.32-4.0)
[2023-01-01 12:20] LABS: Free T4 (Free Thyroxine) 0.94 ng/dL (0.71-1.85)
== END 2023-01-01 07:48 | disposition home or self-care (01) ==
LOC: HO.HMGCLDS 07:47
PROVIDERS: Internal Medicine; Absent Provider Internal Medicine Nephrology; PCP Internal Medicine; Visit Provider Internal Medicine
DX: E78.5 Hyperlipidemia, unspecified (principal); E04.2 Nontoxic multinodular goiter; I12.9 Hypertensive chronic kidney disease with stage 1 through stage 4 chronic kidney disease, or unspecified chronic kidney disease; N18.31 Chronic kidney disease, stage 3a
CPT/HCPCS: 36415; 80051; 80061; 82310; 82550; 82565; 84156; 84439; 84443; 84450; 84460; 84520

== ENCOUNTER 2023-01-25 08:18 | Outpatient (REF) | payer MEDICARE, OTHER, SELFPAY ==
--- NOTE | ~2023-01-25 | US_ITS ---
EXAMINATION: US THYROID CLINICAL INFORMATION: Nontoxic multinodular goiter. COMPARISON: Ultrasound soft tissue head/neck thyroid dated 04/18/2022 and 02/10/2021. TECHNIQUE: Linear transducer grayscale and color Doppler examination with attention to the region of the thyroid. FINDINGS: SIZE: Measurements of the solitary right thyroid lobe and nodules are given in sagittal, anteroposterior and transverse dimensions respectively. Right Thyroid Lobe: 5.6 x 1.8 x 1.6 cm, volume 8.4 mL. Previously 5.8 x 1.7 x 1.8 cm, volume 9.2 mL. Parenchyma: The gland echotexture is heterogeneous. Thyroid vascularity is normal. Left Thyroid Lobe: Surgically absent. Isthmus: 0.3 cm in maximum AP dimension. Previously 0.4 cm. Comparison with previous exam is difficult due to gland heterogeneity. Estimated total number of nodules greater than or equal to 1 cm: 3. [employer] And Driver nodules are described as follows: 1. Location: Right superior. Size: 1.0 x 0.6 x 1.0 cm, volume 0.30 mL. Previously: 1.0 x 0.7 x 0.8 cm, volume 0.27 mL. Nodule characteristics: Composition: Spongiform (0). Echogenicity: Anechoic (0). Shape: Not taller than wide (0). Margins: Smooth (0). Echogenic Foci: None (0). ACR TI-RADS total points: 0 Previous: 0 ACR TI-RADS category: 1 Previous: 1 Significant change in size (>/= 20% in 2 dimensions and minimal increase of 2 mm or 50% or greater increase in volume): Change in features: Change in ACR TI-RADS risk category: 2. Location: Right mid. Size: 1.3 x 0.7 x 0.9 cm, volume 0.46 mL. Previously: 1.1 x 0.8 x 1.0 cm, volume 0.48 mL. Nodule characteristics: Composition: Spongiform (0). Echogenicity: Anechoic (0). Shape: Not taller than wide (0). Margins: Smooth (0). Echogenic Foci: None (0). ACR TI-RADS total points: 0 Previous: 0 ACR TI-RADS category: 1 Previous: 1 Significant change in size (>/= 20% in 2 dimensions and minimal increase of 2 mm or 50% or greater increase in volume): Change in features: Change in ACR TI-RADS risk category: 3. Location: Right mid. Size: 0.9 x 0.6 x 0.8 cm, volume 0.22 mL. Previously: 1.0 x 0.5 x 0.7 cm, volume 0.20 mL. Nodule characteristics: Composition: Spongiform (0). Echogenicity: Anechoic (0). Shape: Not taller than wide (0). Margins: Smooth (0). Echogenic Foci: None (0). ACR TI-RADS total points: 0 Previous: 0 ACR TI-RADS category: 1 Previous: 1 Significant change in size (>/= 20% in 2 dimensions and minimal increase of 2 mm or 50% or greater increase in volume): Change in features: Change in ACR TI-RADS risk category: 4. Location: Right mid. Size: 1.1 x 0.3 x 0.6 cm, volume 0.10 mL. Previously: 0.7 x 0.3 x 0.6 cm, volume 0.06 mL. Nodule characteristics: Composition: Mixed cystic and solid (1). Echogenicity: Cannot be determined (1). Shape: Not taller than wide (0). Margins: Smooth (0). Echogenic Foci: None (0). ACR TI-RADS total points: 2 Previous: Not documented. ACR TI-RADS category: 2 Previous: Not documented. Significant change in size (>/= 20% in 2 dimensions and minimal increase of 2 mm or 50% or greater increase in volume): Change in features: Change in ACR TI-RADS risk category: 5. Location: Right inferior. Size: 0.8 x 0.5 x 0.9 cm, volume 0.20 mL. Previously: 1.0 x 0.4 x 0.5 cm, volume 0.12 mL. Nodule characteristics: Composition: Spongiform (0). Echogenicity: Anechoic (0). Shape: Not taller than wide (0). Margins: Smooth (0). Echogenic Foci: None (0). ACR TI-RADS total points: 0 Previous: 0 ACR TI-RADS category: 1 Previous: 1 Significant change in size (>/= 20% in 2 dimensions and minimal increase of 2 mm or 50% or greater increase in volume): Change in features: Change in ACR TI-RADS risk category: NODES: Left cervical lymph node in the left thyroid bed. This measures 1.2 x 0.5 x 0.7 cm. This is diffusely hypoechoic with loss of fatty hilum. This may be seen on previous exam from April 2022 cine image 37 of 87. This measured 1.1 x 0.4 x 0.7 cm on February 2021 exam and is stable. US/US thyroid IMPRESSION: Heterogeneous upper normal-sized right lobe. Innumerable right thyroid nodules. These are difficult to compare with previous exam from April 2022 but may not be appreciably changed. According to TI RADS criteria, no FNA or follow up. Left cervical lymph node in the thyroid bed stable from previous exams. ACR TI-RADS RECOMMENDATION REFERENCE: Ultrasound-guided fine-needle aspiration, followup ultrasound, no further follow up. * TR1 (0 point) and TR2 (2 points): No FNA or follow up * TR3 (3 points): FNA if more than or equal to 2.5 cm in maximum dimension, followup ultrasound in 1, 3 and 5 years if 1.5 to 2.4 cm in maximum dimension. * TR4 (4-6 points): FNA if more than or equal to 1.5 cm in maximum dimension, followup ultrasound in 1, 2, 3 and 5 years if 1 to 1.4 cm in maximum dimension. * TR5 (more than or equal to 7 points): FNA if more than or equal to 1 cm in maximum dimension, followup ultrasound every year for 5 years if 0.5 to 0.9 cm in maximum dimension. * TR3, TR4 or TR5 nodules that are below the size threshold for follow up receive no follow up.
== END 2023-01-25 08:19 | disposition home or self-care (01) ==
LOC: HO.HMGCX 08:18
PROVIDERS: PCP Internal Medicine; Visit Provider Internal Medicine
DX: E04.2 Nontoxic multinodular goiter (principal)
CPT/HCPCS: 76536

== ENCOUNTER 2023-02-19 07:30 | Outpatient (REF) | payer MEDICARE, OTHER, SELFPAY ==
--- NOTE | ~2023-02-19 | MM_ITS ---
EXAMINATION: MM SCREENING DIGITAL BREAST TOMOSYNTHESIS, BILATERAL CLINICAL INFORMATION: Screening. Asymptomatic. The lifetime risk of breast cancer based on the Tyrer-Cuzick Model is 2.9.%. COMPARISON: Mammography: This study is compared with prior exams dating back to 2019. TECHNIQUE: Digital breast tomosynthesis is performed in both the craniocaudal and mediolateral oblique views along with computer-aided detection (CAD). Synthesized 2D images are generated from the tomosynthesis. FINDINGS: There are scattered areas of fibroglandular density (ACR BI-RADS breast composition Category b). There are no significant masses, abnormal calcifications, or other abnormalities. MM/MM tomosynthesis screening BI IMPRESSION: No mammographic evidence of malignancy. ASSESSMENT: BI-RADS BI-RADS 1 - Negative RECOMMENDATION: Routine annual mammography screening. 1 year F/U This examination should not preclude the clinical evaluation of a suspicious palpable abnormality. This patient's information was entered into a reminder system with a target due date for their next mammogram.
== END 2023-02-19 07:31 | disposition home or self-care (01) ==
LOC: HO.MAMMO 07:30
PROVIDERS: PCP Internal Medicine; Visit Provider Internal Medicine
DX: Z12.31 Encounter for screening mammogram for malignant neoplasm of breast (principal)
CPT/HCPCS: 77063; 77067

== ENCOUNTER → 2023-02-19 07:45 | Outpatient (BNV) | payer MEDICARE, OTHER, SELFPAY | PROVIDERS: PCP Internal Medicine; Visit Provider Radiology Diagnostic Radiology | DX: Z12.31 Encounter for screening mammogram for malignant neoplasm of breast (principal) | CPT/HCPCS: 77063; 77067 ==

== ENCOUNTER 2023-04-16 07:17 | Outpatient (REF) | payer MEDICARE, OTHER, SELFPAY ==
[2023-04-16 12:41] LABS: Alanine Aminotransferase 14 U/L (0-31); Aspartate Amino Transferase 17 U/L (5-31); Cholesterol 183 mg/dL (<200); HDL Cholesterol 57 mg/dL (>40); LDL Cholesterol Calculated 98 mg/dL (<100); Triglycerides 140 mg/dL (<150)
== END 2023-04-16 07:18 | disposition home or self-care (01) ==
LOC: HO.HMGCLDS 07:17
PROVIDERS: PCP Internal Medicine; Visit Provider Internal Medicine
DX: E78.5 Hyperlipidemia, unspecified (principal)
CPT/HCPCS: 36415; 80061; 84450; 84460

== ENCOUNTER 2023-04-17 08:51 | Outpatient (AMB) | payer MEDICARE, OTHER, SELFPAY ==
--- NOTE | 2023-04-17 08:59 | A.OFFPC_ITS ---
Vital Signs 04/17/23 09:10 Height 5 ft 3 in Weight 156 lb BMI 27.6 BP 150/84 H Blood Pressure Location Lt brachial Position Sitting Pulse 97 Pulse Source Pulse Oximeter Pulse Oximetry (%) 97 Oxygen Delivery Method Room Air Intake Visit Reasons: Annual/overdue Intake Note: Pt is here today for her PE Allergies fentanyl Adverse Reaction (Severe, Verified 04/17/23 09:36) severe nausea simvastatin Adverse Reaction (Unknown, Verified 04/17/23 09:36) muscle pain ENVIRONMENTAL Allergy (Intermediate, Uncoded 04/17/23 09:36) HAYFEVER Medication List - Last Reconciled 04/17/23 by Deedee Monaco MD amlodipine 2.5 mg PO DAILY cholecalciferol (vitamin D3) 2,000 units PO DAILY coenzyme Q10 (CoQ-10) 200 mg PO DAILY estradiol 0.5 mg PO DAILY 30 days ketoconazole 2% 1 appl topical DAILY 10 days lisinopril 40 mg PO DAILY rosuvastatin 5 mg PO 3XW Tobacco use date assessed: 01/14/23 Fall risk assessment: No Falls in past year HPI Annual/overdue HPI Details 72-year-old lady here today for her phys ical exam. She has chronic kidney disease stage 3, followed by Dr. Silva, currently on amlodipine, has dyslipidemia takes rosuvastatin, hypertension, osteopenia of left hip and history of nontoxic multinodular goiter. She had a bone density scan done in 2019 which showed normal bone density in lumbar spine, osteopenia in left femoral neck with a T-score-1.5 and normal bone density in her left femur. She is up-to-date with her screening mammogram done February 2023. She is currently being followed by [facility] endocrine clinic by Dr. Alvarado, ordered a thyroid ultrasound, which showedHeterogeneous upper normal-sized right lobe. Innumerable right thyroid nodules, which were difficult to compare with previous exam from April 2022, but may not be appreciably changed. According to TI RADS criteria, no FNA or follow up needed .. Left cervical lymph node in the thyroid bed stable from previous exams. [facility] Medical History (Updated 04/17/23 @ 09:58 by Deedee Monaco MD) Rash and nonspecific skin eruption Non-toxic multinodular goiter History of COVID-19 Postmenopausal syndrome (~11/2022) Chronic kidney disease, stage III (moderate) Lumbar degenerative disc disease Uterine fibroid Osteopenia of left hip Trigeminal neuralgia Surgical menopause Essential hypertension Dyslipidemia Surgical History Hx of brain surgery Vocal cord cyst History of deviated nasal septum History of back surgery H/O total hysterectomy with bilateral salpingo-oophorectomy (BSO) Family History Father HTN (hypertension) Heart disease DDD (degenerative disc disease) Myocardial infarction Mother Diabetes mellitus Colon cancer Arthritis Hot flashes Daughter Papillary thyroid carcinoma Paternal Aunt CVD (cardiovascular disease) History of heart attack Son No problems noted. Daughter No problems noted. Brother Substance use disorder Brother Substance use disorder Brother Substance use disorder Sister No problems noted. Sister No problems noted. Sister No problems noted. Sister No problems noted. Sister No problems noted. Social History Household Members: Spouse Housing: House Alcohol intake: never Patient Tobacco Use Status: Never used Tobacco e-Cigarette/Vaping Use: Never Used Second Hand Smoke Exposure: No Advance Directives Date on File: 03/08/21 service: No Current occupational status: retired Cognitive needs: No Hearing needs: No Vision needs: No Questionnaire PHQ-9 Over the last 2 weeks, how often have you been bothered by any of the following problems? 1. Little interest or pleasure in doing things: not at all 2. Feeling down, depressed, or hopeless: not at all 3. Trouble falling or staying asleep, or sleeping too much: not at all 4. Feeling tired or having little energy: not at all 5. Poor appetite or overeating: not at all 6. Feeling bad about yourself - or that you are a failure or have let yourself or your family down: not at all 7. Trouble concentrating on things, such as reading the newspaper or watching television: not at all 8. Moving or speaking so slowly that other people could have noticed. Or the opposite - being so fidgety or restless that you have been moving around a lot more than usual: not at all 9. Thoughts that you would be better off or of hurting yourself in some way: not at all Total score: 0 Source: Developed by Drs. David Jay, Norbert Strong and colleagues, with an educational stephon from [employer]. Thrive Questionnaire Date Thrive assessed: 04/17/23 I am a: Patient What is your living situation today?: I have a steady place to live Within the past 12 months, did the food you bought not last and you didn't have the money to get more?: Never true Within the past 12 months, did you worry whether your food would run out before you got money to buy more?: Never true Do you have trouble paying for medicines?: No Do you have trouble getting transportation to medical appointments?: No Do you have trouble paying your heating and electricity bill?: No Do you have trouble taking care of your child, family member or friend?: No Do you have trouble with day-to-day activities such as bathing, preparing meals, shopping, managing finances, etc.?: No Are you currently unemployed and looking for a job?: No Are you interested in more education?: No AUDIT C Alcohol Use Questionnaire (AUDIT-C) 1. How often do you have a drink containing alcohol?: Never Total Score: 0 BELINDA-7 AMB Questionnaire BELINDA-7 Date BELINDA - 7 assessed: 04/17/23 Feeling nervous, anxious, or on edge: 0 = Not at all Not being able to stop or control worryin = Not at all Worrying too much about different things: 0 = Not at all Trouble relaxin = Not at all Being so restless that it is hard to sit still: 0 = Not at all Becoming easily annoyed or irritable: 0 = Not at all Feeling afraid as if something awful might happen: 0 = Not at all Total BELINDA-7 score (0-4 normal; 5-9 mild; 10-14 moderate; 15-21 severe): 0 Source: Developed by Drs. David Jay, Norbert Strong and colleagues, with an educational stephon from [employer]. Review of Systems Const Reports difficulty sleeping (Occasional due to hot flashes), Denies fatigue and Denies headache(s) Eyes Denies change in vision ENT Reports Normal hearing present, Denies dysphagia, Denies headache(s) and Denies hoarseness Card Denies chest pain, Denies irregular heart rhythm and Denies dyspnea Resp Denies cough and Denies dyspnea GI Denies abdominal pain, Denies change in bowel habits, Denies dysphagia, Denies diarrhea and Denies nausea Reports no additional complaints Musc Denies myalgias, Denies muscle cramps, Denies numbness and Denies tingling Skin/Breast Details: Recurrent rash on cheek, applies ketoconazole cream as needed, previously prescribed by her regulator inspector Neuro Reports Normal hearing present, Denies headache(s), Denies numbness, Denies Sensory deficit (Neuro) and Denies tingling Psych Denies anxiety and Denies depression Endo Reports as per HPI, Denies fatigue, Denies heat intolerance, Denies polyphagia and Denies polydipsia Sandoval/Lymph Denies easy bruising Aller/Immun Reports no additional complaints Physical exam (Primary Care) Vital Signs: Last Vital Signs Pulse 97 04/17/23 09:10 BP 150/84 H 04/17/23 09:10 Pulse Ox 97 04/17/23 09:10 Oxygen Delivery Method Room Air 04/17/23 09:10 BMI result Body Mass Index 27.6 Tobacco/Smoking Status: Tobacco use Status Tobacco use date assessed 01/14/23 04/17/23 09:00 Patient Tobacco Use Status Never used Tobacco 04/17/23 09:00 e-Cigarette/Vaping Use Never Used 04/17/23 09:00 PHQ-9: PHQ-9 Score PHQ-9: Total score 0 04/17/23 10:01 Thrive Assessment: Date of Thrive Assessment Date Thrive assessed 04/17/23 04/17/23 10:01 Advance Care Planning discussion: On file, no changes Date of discussion: 04/18/23 Who was present: patient Forms completed: MOLST (on file) Time spent: 1-15 minutes, on File Actual minutes spent: 15 Const Other: Pleasant, no acute cardiorespiratory distress noted, ambulatory with normal gait HENMT Other: Normocephalic atraumatic, no active nasal drainage, mouth and oropharynx are within normal limits, moist oral mucosa seen Eyes General: appearance normal, both eyes and all related structures Neck Neck: Yes full ROM, Yes no lymphadenopathy and Yes supple Chest Chest palpation & inspection: normal inspection of the chest Breast/axilla inspection: normal inspection of the breasts Breast/axilla palpation: normal palpation of the breasts Resp Effort & Inspection: normal respiratory effort and able to speak in complete sentences Auscultation: clear to auscultation bilaterally Cardio Other: S1-S2 present regular rate and rhythm GI Other: Normal bowel sounds, soft, nontender, no mass palpated General: Yes no CVA tenderness and Yes deferred (s/p JONAH-BSO) Back/Spine/Pelvis Back: no CVA tenderness and No back tenderness Skin General skin exam: no rashes or lesions noted Neuro Cranial nerves: Yes Normal hearing present Sensory Exam: No Sensory deficit (Neuro) Extrem General: Yes full ROM, Yes no joint enlargement, Yes no pedal edema, Yes no calf tenderness and Yes normal gait Psych Appearance: grossly normal Mental Status: mental status grossly normal Speech and movement: Normal speech and movement present Affect: normal affect Attitude: cooperative Thought process: Normal thought process present Results Reviewed Results Reviewed: ENTERED: 04/16/[address]: ORDERED: AST, ALT, Lipid Panel Test Result Flag Reference Site AST (GOT) 17 5-31 U/L ALT (GPT) 14 0-31 U/L Triglyceride 140 <150 mg/dL Desirable Triglyceride: less than 150 mg/dL Borderline High Triglyceride 150-199 mg/dL High Triglyceride: 200-499 mg/dL Very High Triglyceride: greater than or equal to 5OO mg/dL Cholesterol 183 <200 mg/dL Desirable Cholesterol: less than 200 mg/dL Borderline High Cholesterol: 200-239 mg/dL High Cholesterol: greater than 239 mg/dL LDL Calculated 98 <100 mg/dL Desirable LDL: less than 100 mg/dL Near Optimal/Above Optimal LDL: 110-129 mg/dL Borderline High LDL: 130-159 mg/dL High LDL: 160-189 mg/dL Very High LDL: greater than or equal to 190 mg/dL HDL 57 >40 mg/dL Desirable HDL: greater than 40 mg/dL ENTERED: 01/01/[address]: Deedee Monaco MD ORDERED: Lytes, BUN, Creat, CA Test Result Flag Reference Site Sodium 140 135-145 mmol/L Potassium 4.5 3.3-5.1 mmol/L CL 108 96-108 mmol/L CO2 25 22-29 mmol/L Gap 12 12-20 BUN 16 9-16 mg/dL Creat 1.13 0.5-1.4 mg/dL EGFR 47 NOTE: For -Faroese individuals, multiply the result by 1.210. Chronic Kidney Disease: Estimated GFR < 60 mL/min/1.73m2 Severe Kidney Disease: Estimated GFR < 15 mL/min/1.73m2 CA 9.8 8.4-10.2 mg/dL RUN: 04/18/23 1757 PAGE 1 [facility] [address] [place] [id number] Repairer Maintenance Building: Mike Combs M.D. Specimen Inquiry Name: GoldyAnnette Paul Age/Sex: 72/F : 1950 Unit#: [id number] Attend Dr: Deedee Monaco MD Re01/01/23 Status: DEP REF Location: HO.HMGCLDS Disch: SPEC : [id number] DENISHA: 01/01/23 STATUS: COMP REQ : [id number] RECD: 01/01/[address]: Deedee Monaco MD COMP: 01/01/238 ENTERED: 01/01/23 [facility] DR: Marleni Latham DO ORDERED: AST, ALT, CK Total, Lipid Panel, TSH Test Result Flag Reference Site AST (GOT) 16 5-31 U/L ALT (GPT) 14 0-31 U/L CK Total 96 26-140 U/L Triglyceride 162 mg/dL Desirable Triglyceride: less than 150 mg/dL Borderline High Triglyceride 150-199 mg/dL High Triglyceride: 200-499 mg/dL Very High Triglyceride: greater than or equal to 5OO mg/dL Chol 230 mg/dL Desirable Cholesterol: less than 200 mg/dL Borderline High Cholesterol: 200-239 mg/dL High Cholesterol: greater than 239 mg/dL LDL Calculated 138 mg/dl Desirable LDL: less than 100 mg/dL Near Optimal/Above Optimal LDL: 110-129 mg/dL Borderline High LDL: 130-159 mg/dL High LDL: 160-189 mg/dL Very High LDL: greater than or equal to 190 mg/dL HDL 60 mg/dL Desirable HDL: greater than 40 mg/dL Note: This HDL assay may give artificially low results in patients with liver disease. TSH 3rd Gen. 1.02 0.32-4.0 uIU/mL TSH 3rd Generation ([facility]) Assessment and Plan Assessment & Plan (1) Annual visit for general adult medical examination with abnormal findings: Code(s): Z00.01 - Encounter for general adult medical examination with abnormal findings Plan: Reviewed recent fasting labs with patient which showed lipids within normal limits. Continue regular dental visit every 6 months and regular eye exams, at least every 2 years. Take adequate calcium in diet and vitamin-D 3 at 2000 IU per cap once a day, in addition to weight-bearing exercises to help maintain good muscle tone and weight control. She has multinodular goiter, scheduled for a follow-up with endocrine later this month, and states that she will just discuss with him regarding need to order a repeat bone density scan. Instructed to do self-breast exam, and get yearly mammogram, currently up-to-date. Up-to-date with all her vaccinations, reminded to get her COVID booster, and yearly flu shot, recommended to get RSV vaccines . She is up-to-date with her screening colonoscopy done by Dr. Gr (2) Dyslipidemia: Code(s): E78.5 - Hyperlipidemia, unspecified Plan: Reviewed recent fasting lipid profile with patient with levels within normal limit . Continue with rosuvastatin 5 mg taken 3 times a week , in addition to adherence to low-cholesterol diet and regular exercise, at least 30 minutes 3 to 4 times a week. Advised patient to make healthy food choices, eat more fruits, vegetables, whole grains, wild caught fish and low-fat dairy. Limit amount of meat and fried or fatty food products, as well as processed foods and fast foods. Follow-up scheduled with repeat fasting lipid panel in 6 months. (3) Essential hypertension: Code(s): I10 - Essential (primary) hypertension Plan: Patient with CKD, continued on lisinopril 40 mg daily and amlodipine 2.5 mg daily, followed by Nephrology (4) Osteopenia of left hip: Code(s): M85.852 - Other specified disorders of bone density and structure, left thigh Plan: Bone density scan result discussed with patient, continue with regular weight- bearing exercise, take adequate calcium from dietary sources and continue with vitamin-D 3 2000 units daily (5) Chronic kidney disease, stage III (moderate): Comment: Followed by Dr. Joyce Code(s): N18.30 - Chronic kidney disease, stage 3 unspecified Plan: Followed by Dr. Reyes (6) Postmenopausal syndrome: Onset Date: ~11/2022 Code(s): N95.1 - Menopausal and female climacteric states (7) Non-toxic multinodular goiter: Code(s): E04.2 - Nontoxic multinodular goiter Plan: Reviewed recent thyroid ultrasound results with patient, followed by endocrine Orders: Orders Alanine Aminotransferase 10/11/23 E78.5 - Hyperlipidemia, unspecified, I10 - Essential (primary) hypertension Lipid Panel 10/11/23 E78.5 - Hyperlipidemia, unspecified, I10 - Essential (primary) hypertension Aspartate Amino Transferase 10/11/23 E78.5 - Hyperlipidemia, unspecified, I10 - Essential (primary) hypertension Creatine Kinase Total 10/11/23 E78.5 - Hyperlipidemia, unspecified, I10 - Essential (primary) hypertension Coding Level of Care Code Est Pt Prev Care >65y(71556) Diagnoses Annual visit for general adult medical examination with abnormal findings Z00.01 Dyslipidemia E78.5 Essential hypertension I10 Osteopenia of left hip M85.852 Chronic kidney disease, stage III (moderate) N18.30 Postmenopausal syndrome N95.1 Non-toxic multinodular goiter E04.2 Additional Codes Vital Signs *Quality* - Advance Care Planning discussion: On file, no changes ([id number]) Vital Signs *Quality* - Time spent: 1-15 minutes, on File ([id number])
[2023-04-17 09:10] VITALS: BP 150/84; PULSE 97; O2SAT 97; BMI 27.6
== END 2023-04-17 10:03 | disposition home or self-care (01) ==
PROVIDERS: PCP Internal Medicine; Visit Provider Internal Medicine
DX: Z00.00 Encounter for general adult medical examination without abnormal findings (principal); I12.9 Hypertensive chronic kidney disease with stage 1 through stage 4 chronic kidney disease, or unspecified chronic kidney disease; N18.30 Chronic kidney disease, stage 3 unspecified; E04.2 Nontoxic multinodular goiter; E78.5 Hyperlipidemia, unspecified; M85.852 Other specified disorders of bone density and structure, left thigh; N95.1 Menopausal and female climacteric states
CPT/HCPCS: 1123F; 99397

== ENCOUNTER 2023-07-22 15:18 | Outpatient (AMB) | payer MEDICARE, OTHER, SELFPAY ==
[2023-07-22 15:21] VITALS: BP 144/84; PULSE 82; BMI 27.6
--- NOTE | 2023-07-22 15:21 | A.OFFVIS_ITS ---
Intake Vital Signs 07/22/23 15:21 Height 5 ft 3 in Weight 155 lb 10.342 oz BMI 27.6 BP 144/84 H Blood Pressure Location Lt brachial Position Sitting Pulse 82 Pulse Source Pulse Oximeter Intake Visit Reasons: F/U NTMNG/CONFIRMED Intake Note: Patient present for NTMNG follow up. Previously managed by Dr. Alvarado. Painting Supervisor Required: No Accompanied by: Self / Same As Patient Allergies fentanyl Adverse Reaction (Severe, Verified 07/22/23 15:27) severe nausea simvastatin Adverse Reaction (Unknown, Verified 07/22/23 15:27) muscle pain ENVIRONMENTAL Allergy (Intermediate, Uncoded 04/17/23 09:36) HAYFEVER Medication List - Last Reconciled 07/22/23 by David Cook MD amlodipine 2.5 mg PO DAILY cholecalciferol (vitamin D3) 2,000 units PO DAILY coenzyme Q10 (CoQ-10) 200 mg PO DAILY estradiol 0.5 mg PO DAILY 30 days ketoconazole 2% 1 appl topical DAILY 10 days lisinopril 40 mg PO DAILY rosuvastatin 5 mg PO 3XW HPI HPI Comments History of Present Illness Details 73 YO Female with a PMHx of a NTMNG who is seen in F/U. She was previously followed by Dr. Solano. The patient last saw Dr. Alvarado on 06/27/2022 She previously underwent FNA biopsy 02/11/2020 of a RMP 1.3 cm and a RLP 1.7 cm thyroid nodule. Cytology for both was benign ([place] Category II). She had a repeat thyroid US that revealed interval growth, so she underwent repeat FNA biopsy 04/13/2021 of a RLP 2.2 and a RMP 2.1 cm thyroid nodule, both again with benign cytology ([place] Category II). She had a repeat thyroid US which revealed a new RUP 1.0 cm thyroid nodule. She does have a Family history of thyroid cancer in her Daughter. Thyroid US: 04/18/2022 Right Thyroid Lobe: 5.8 x 1.7 x 1.8 cm, volume 9.2 mL. Previously 6.0 x 1.9 x 1.6 cm, volume 9.4 mL. Parenchyma: The gland echotexture is heterogeneous. Thyroid vascularity is increased. Left Thyroid Lobe: Surgically absent. Isthmus: 0.37 cm in maximum AP dimension. Previously 0.41 cm. Estimated total number of nodules greater than or equal to 1 cm: 3. there are numerable predominantly spongiform nodules. Comparison with prior exam is difficult. The 2 nodules in the right mid pole and right lower pole are measured as 2 separate nodules and may been previously measured as 1 nodule. 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 Location: Right superior. ?? ? Size: 1.0 x 0.7 x 0.75 cm, volume 0.27 mL. ?? ? Previously: 0.9 x 0.6 x 0.1 cm, volume 0.28 mL. ?? ? Nodule characteristics: ?? ? Composition: Spongiform (0). ?? ? Echogenicity: Anechoic (0). ?? ? Shape: Not taller than wide (0). ?? ? Margins: Smooth (0). ?? ? Echogenic Foci: None (0).? ACR TI-RADS total points: 0 Previous: 0 ?? ? ACR TI-RADS category: 1 Previous: 1 ? Significant change in size (>/= 20% in 2 dimensions and minimal increase of 2 mm or 50% or greater increase in volume): ?? ? Change in features: ?? ? Change in ACR TI-RADS risk category: 2.? Location: Right mid. ?? ? Size: 1.1 x 0.8 x 1.0 cm, volume 0.48 mL. ?? ? Previously: 2.1 x 1.5 x 1.4 cm, volume 2.3 mL. ?? ? Composition: Spongiform (0). ?? ? Echogenicity: Anechoic (0). ?? ? Shape: Not taller than wide (0). ?? ? Margins: Smooth (0). ?? ? Echogenic Foci: None (0).? ACR TI-RADS total points: 0 Previous: 0 ?? ? ACR TI-RADS category: 1 Previous: 1 ? Significant change in size (>/= 20% in 2 dimensions and minimal increase of 2 mm or 50% or greater increase in volume): ?? ? Change in features: ?? ? Change in ACR TI-RADS risk category: 3.? Location: Right mid. ?? ? Size: 0.97 x 0.52 x 0.75 cm, volume 0.2 mL. ?? ? Previously: Not seen on the previous study. ?? ? Composition: Spongiform (0). ?? ? Echogenicity: Anechoic (0). ?? ? Shape: Not taller than wide (0). ?? ? Margins: Smooth (0). ?? ? Echogenic Foci: None (0).? ACR TI-RADS total points: 0 ?? ? ACR TI-RADS category: 1 4.? Location: Right inferior. ?? ? Size: 0.97 x 0.45 x 0.51 cm, volume 0.12 mL. ?? ? Previously: Not seen on the previous study. ?? ? Composition: Spongiform (0). ?? ? Echogenicity: Anechoic (0). ?? ? Shape: Not taller than wide (0). ?? ? Margins: Smooth (0). ?? ? Echogenic Foci: None (0).? ACR TI-RADS total points: 0 ?? ? ACR TI-RADS category: 1 ?? ? 5.? Location: Right inferior. ?? ? Size: 1.0 x 0.67 x 0.91 cm, volume 0.32 mL. ?? ? Previously: 2.2 x 1.0 x 1.2 cm, volume 1.3 mL. ?? ? Composition: Spongiform (0). ?? ? Echogenicity: Anechoic (0). ?? ? Shape: Not taller than wide (0). ?? ? Margins: Smooth (0). ?? ? Echogenic Foci: None (0).? ACR TI-RADS total points: 0 Previous: 6 ?? ? ACR TI-RADS category: 1 Previous: 4 ? Significant change in size (>/= 20% in 2 dimensions and minimal increase of 2 mm or 50% or greater increase in volume): ?? ? Change in features: ?? ? Change in ACR TI-RADS risk category: NODES: No lymphadenopathy is seen in the tissue surrounding the thyroid gland. Labs: Laboratory Tests 04/18/22 10:13 TSH 0.82 Free T4 0.92 [facility] Medical History (Updated 04/17/23 @ 09:58 by Deedee Monaco MD) Rash and nonspecific skin eruption Non-toxic multinodular goiter History of COVID-19 Postmenopausal syndrome (~11/2022) Chronic kidney disease, stage III (moderate) Lumbar degenerative disc disease Uterine fibroid Osteopenia of left hip Trigeminal neuralgia Surgical menopause Essential hypertension Dyslipidemia Surgical History Hx of brain surgery Vocal cord cyst History of deviated nasal septum History of back surgery H/O total hysterectomy with bilateral salpingo-oophorectomy (BSO) Family History Father HTN (hypertension) Heart disease DDD (degenerative disc disease) Myocardial infarction Mother Diabetes mellitus Colon cancer Arthritis Hot flashes Daughter Papillary thyroid carcinoma Paternal Aunt CVD (cardiovascular disease) History of heart attack Son No problems noted. Daughter No problems noted. Brother Substance use disorder Brother Substance use disorder Brother Substance use disorder Sister No problems noted. Sister No problems noted. Sister No problems noted. Sister No problems noted. Sister No problems noted. Social History Household Members: Spouse Housing: House Alcohol intake: never Comment: soreness Patient Tobacco Use Status: Never used Tobacco e-Cigarette/Vaping Use: Never Used Second Hand Smoke Exposure: No Advance Directives Date on File: 03/08/21 service: No Current occupational status: retired Cognitive needs: No Hearing needs: No Vision needs: No Physical Exam Const Other: Thyroid gland is normal size weighs about 15 g . There are no thyroid nodules palpated Assessment & Plan Assessment & Plan (1) Non-toxic multinodular goiter: Code(s): E04.2 - Nontoxic multinodular goiter Plan: This 73-year-old white female with a history of multinodular goiter and family history of thyroid cancer previously underwent FNA biopsy 02/11/2020 of a RMP 1.3 cm and a RLP 1.7 cm thyroid nodule. Cytology for both was benign ([place] Category II).repeat FNA biopsy 04/13/2021 of a RLP 2.2 and a RMP 2.1 cm thyroid nodule, both again with benign cytology . She appears to be clinically and biochemically euthyroid. There is also mention of an abnormal lymph node Left cervical lymph node in the left thyroid bed. This measures 1.2 x 0.5 x 0.7 cm. This is diffusely hypoechoic with loss of fatty hilum. This may be seen on previous exam from April 2022 cine image 37 of 87. This measured 1.1 x 0.4 x 0.7 cm on February 2021 exam and is stable. Plan is to talk to the patient about different options including observation with serial ultrasounds. I am a little concerned about the abnormal lymph node present considering the family history of thyroid cancer and may talk to the patient about getting a 2nd opinion perhaps to evaluate this lymph node and biop sy if necessary.. Gave her the names of several airplane tester including Dr. Andersen in [place], Dr. Warren we [place] and Dr. Gusman at [facility]. She will get back to me about which doctor she wants to see and which doctors covered by her insurance Coding Level of Care Code Est Pt Level 3 (12824) Diagnoses Non-toxic multinodular goiter E04.2
== END 2023-07-22 16:08 | disposition home or self-care (01) ==
PROVIDERS: PCP Internal Medicine; Visit Provider Internal Medicine Endocrinology, Diabetes & Metabolism
DX: E04.2 Nontoxic multinodular goiter (principal)
CPT/HCPCS: 99213

== ENCOUNTER → 2023-07-22 15:18 | Outpatient (BNVA) | payer MEDICARE, OTHER, SELFPAY | PROVIDERS: Visit Provider Internal Medicine Endocrinology, Diabetes & Metabolism | DX: E04.2 Nontoxic multinodular goiter (principal) | CPT/HCPCS: 99212 ==

== ENCOUNTER 2023-10-17 08:26 | Outpatient (REF) | payer MEDICARE, OTHER, SELFPAY ==
[2023-10-17 12:04] LABS: Alanine Aminotransferase 23 U/L (0-31); Aspartate Amino Transferase 24 U/L (5-31); Cholesterol 139 mg/dL (<200); HDL Cholesterol 40 mg/dL (>40); LDL Cholesterol Calculated 78 mg/dL (<100); Triglycerides 107 mg/dL (<150)
== END 2023-10-17 08:27 | disposition home or self-care (01) ==
LOC: HO.HMGCLDS 08:26
PROVIDERS: PCP Internal Medicine; Visit Provider Internal Medicine
DX: E78.5 Hyperlipidemia, unspecified (principal); I10 Essential (primary) hypertension
CPT/HCPCS: 36415; 80061; 82550; 84450; 84460

== ENCOUNTER 2023-10-22 08:52 | Outpatient (AMB) | payer MEDICARE, OTHER, SELFPAY ==
[2023-10-22 08:54] VITALS: BP 154/82; PULSE 72; O2SAT 99; BMI 27.1
--- NOTE | 2023-10-22 08:54 | MHC.PC.OV ---
Vital Signs 10/22/23 08:54 Height 5 ft 3 in Weight 153 lb BMI 27.1 BP 154/82 H Blood Pressure Location Rt brachial Position Sitting Pulse 72 Pulse Source Pulse Oximeter Pulse Oximetry (%) 99 Oxygen Delivery Method Room Air Intake Visit Reasons: 6 month fu Intake Note: Pt is here today for her 6mo. f/u Allergies fentanyl Adverse Reaction (Severe, Verified 10/22/23 09:12) severe nausea simvastatin Adverse Reaction (Unknown, Verified 10/22/23 09:12) muscle pain ENVIRONMENTAL Allergy (Intermediate, Uncoded 10/22/23 09:12) HAYFEVER Medication List - Last Reconciled 10/22/23 by Deedee Monaco MD amlodipine 2.5 mg PO DAILY cholecalciferol (vitamin D3) 2,000 units PO DAILY coenzyme Q10 (CoQ-10) 400 mg PO DAILY estradiol 0.5 mg PO DAILY 30 days ketoconazole 2% 1 appl topical DAILY 10 days lisinopril 40 mg PO DAILY rosuvastatin 5 mg PO 3XW Tobacco use date assessed: 10/22/23 Fall risk assessment: No Falls in past year Last assessed Fall Risk: 10/22/23 Dental Screening Dental Screen Date: 10/22/23 Did you have a dental visit in the last 12 months?: Yes Did you have a dental problem in the last 6 months where you did not have access to dental care?: No Was dental information given to patient?: Patient has dentist HPI 6 month fu HPI Details 73 year old lady with chronic kidney disease stage 3 , hypertension currently followed by Nephrology, she sees Dr. Cook for her nontoxic multinodular goiter and osteopenia, and is here today for follow-up on her lipids. She has been compliant with taking her medications and following a low-cholesterol diet. Latest fasting labs showed lipids are within normal limits. [facility] Medical History Rash and nonspecific skin eruption Non-toxic multinodular goiter History of COVID-19 Postmenopausal syndrome (~11/2022) Chronic kidney disease, stage III (moderate) Lumbar degenerative disc disease Uterine fibroid Osteopenia of left hip Trigeminal neuralgia Surgical menopause Essential hypertension Dyslipidemia Surgical History Hx of brain surgery Vocal cord cyst History of deviated nasal septum History of back surgery H/O total hysterectomy with bilateral salpingo-oophorectomy (BSO) Family History Father HTN (hypertension) Heart disease DDD (degenerative disc disease) Myocardial infarction Mother Diabetes mellitus Colon cancer Arthritis Hot flashes Daughter Papillary thyroid carcinoma Paternal Aunt CVD (cardiovascular disease) History of heart attack Son No problems noted. Daughter No problems noted. Brother Substance use disorder Brother Substance use disorder Brother Substance use disorder Sister No problems noted. Sister No problems noted. Sister No problems noted. Sister No problems noted. Sister No problems noted. Social History Household Members: Spouse Housing: House Alcohol intake: never Comment: soreness Patient Tobacco Use Status: Never used Tobacco e-Cigarette/Vaping Use: Never Used Second Hand Smoke Exposure: No Advance Directives Date on File: 03/08/21 service: No Current occupational status: retired Cognitive needs: No Hearing needs: No Vision needs: No Questionnaire PHQ-9 Over the last 2 weeks, how often have you been bothered by any of the following problems? 1. Little interest or pleasure in doing things: not at all 2. Feeling down, depressed, or hopeless: not at all 3. Trouble falling or staying asleep, or sleeping too much: not at all 4. Feeling tired or having little energy: not at all 5. Poor appetite or overeating: not at all 6. Feeling bad about yourself - or that you are a failure or have let yourself or your family down: not at all 7. Trouble concentrating on things, such as reading the newspaper or watching television: not at all 8. Moving or speaking so slowly that other people could have noticed. Or the opposite - being so fidgety or restless that you have been moving around a lot more than usual: not at all 9. Thoughts that you would be better off or of hurting yourself in some way: not at all Total score: 0 Depression Screening Interpretation: Negative Depression Screening Done: Yes 63390 - PHQ-9 Billing: Yes Source: Developed by Drs. David JayMadeline Kurt Kroenke and colleagues, with an educational stephon from [employer]. Thrive Questionnaire Date Thrive assessed: 10/22/23 I am a: Patient What is your living situation today?: I have a steady place to live Within the past 12 months, did the food you bought not last and you didn't have the money to get more?: Never true Within the past 12 months, did you worry whether your food would run out before you got money to buy more?: Never true Do you have trouble paying for medicines?: No Do you have trouble getting transportation to medical appointments?: No Do you have trouble paying your heating and electricity bill?: No Do you have trouble taking care of your child, family member or friend?: No Do you have trouble with day-to-day activities such as bathing, preparing meals, shopping, managing finances, etc.?: No Are you currently unemployed and looking for a job?: No Are you interested in more education?: No THRIVE Score: 0 AUDIT C Alcohol Use Questionnaire (AUDIT-C) 1. How often do you have a drink containing alcohol?: Never Total Score: 0 BELINDA-7 AMB Questionnaire BELINDA-7 Date BELINDA - 7 assessed: 05/15/23 Feeling nervous, anxious, or on edge: 0 = Not at all Not being able to stop or control worryin = Not at all Worrying too much about different things: 0 = Not at all Trouble relaxin = Not at all Being so restless that it is hard to sit still: 0 = Not at all Becoming easily annoyed or irritable: 0 = Not at all Feeling afraid as if something awful might happen: 0 = Not at all Total BELINDA-7 score (0-4 normal; 5-9 mild; 10-14 moderate; 15-21 severe): 0 Source: Developed by Drs. David Jay, Norbert Strong and colleagues, with an educational stephon from [employer]. BELINDA-7 Assessment Billing BELINDA-7 Assessment Tool: BELINDA-7 Assessment 89862 Review of Systems Const Denies fatigue and Denies headache(s) Eyes Denies change in vision ENT Reports Normal hearing present, Denies dysphagia, Denies headache(s) and Denies hoarseness Card Denies chest pain, Denies irregular heart rhythm and Denies dyspnea Resp Denies cough and Denies dyspnea GI Denies abdominal pain, Denies change in bowel habits, Denies dysphagia, Denies diarrhea and Denies nausea Reports no additional complaints Musc Denies myalgias, Denies muscle cramps, Denies numbness and Denies tingling Skin/Breast Details: Recurrent rash on cheek, applies ketoconazole cream as needed, 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 Neuro Reports Normal hearing present, Denies headache(s), Denies numbness, Denies Sensory deficit (Neuro) and Denies tingling Psych Denies anxiety and Denies depression Endo Denies fatigue, Denies heat intolerance, Denies polyphagia and Denies polydipsia Sandoval/Lymph Denies easy bruising Aller/Immun Reports no additional complaints Physical exam (Primary Care) Vital Signs: Last Vital Signs Pulse 72 10/22/23 08:54 BP 154/82 H 10/22/23 08:54 Pulse Ox 99 10/22/23 08:54 Oxygen Delivery Method Room Air 10/22/23 08:54 BMI result Body Mass Index 27.1 Tobacco/Smoking Status: Tobacco use Status Tobacco use date assessed 10/22/23 10/22/23 09:02 Patient Tobacco Use Status Never used Tobacco 10/22/23 09:02 e-Cigarette/Vaping Use Never Used 10/22/23 09:02 PHQ-9: PHQ-9 Score PHQ-9: Total score 0 10/22/23 09:45 Depression Screening Interpretation: Negative Thrive Assessment: Date of Thrive Assessment Date Thrive assessed 10/22/23 10/22/23 09:02 Const Other: Pleasant, no acute cardiorespiratory distress noted, ambulatory with normal gait [facility] Other: Normocephalic atraumatic, no active nasal drainage, mouth and oropharynx are within normal limits, moist oral mucosa seen Eyes General: appearance normal, both eyes and all related structures Neck Neck: Yes full ROM, Yes no lymphadenopathy and Yes supple Resp Effort & Inspection: normal respiratory effort and able to speak in complete sentences Auscultation: clear to auscultation bilaterally Cardio Other: S1-S2 present regular rate and rhythm GI Other: Normal bowel sounds, soft, nontender, no mass palpated Back/Spine/Pelvis Back: No back tenderness Neuro Cranial nerves: Yes Normal hearing present Sensory Exam: No Sensory deficit (Neuro) Extrem General: Yes full ROM, Yes no joint enlargement, Yes no pedal edema, Yes no calf tenderness and Yes normal gait Psych Appearance: grossly normal Mental Status: mental status grossly normal Speech and movement: Normal speech and movement present Affect: normal affect Attitude: cooperative Thought process: Normal thought process present Results Reviewed Results Reviewed: Name: Annette Winslow Age/Sex: 73/F : 1950 Unit#: [id number] Attend Dr: Deedee Monaco MD Re10/17/23 Status: DEP [facility] Disch: SPEC : [id number] DENISHA: 10/17/23 STATUS: COMP REQ : [id number] RECD: 10/17/[address]: Deedee Monaco MD COMP: 10/17/23 ENTERED: 10/17/[address]: ORDERED: AST, ALT, CK Total, Lipid Panel Test Result Flag Reference AST (GOT) 24 5-31 U/L ALT (GPT) 23 0-31 U/L CK Total 141 H 26-140 U/L Triglyceride 107 <150 mg/dL Desirable Triglyceride: less than 150 mg/dL Borderline High Triglyceride 150-199 mg/dL High Triglyceride: 200-499 mg/dL Very High Triglyceride: greater than or equal to 5OO mg/dL Cholesterol 139 <200 mg/dL Desirable Cholesterol: less than 200 mg/dL Borderline High Cholesterol: 200-239 mg/dL High Cholesterol: greater than 239 mg/dL LDL Calculated 78 <100 mg/dL Desirable LDL: less than 100 mg/dL Near Optimal/Above Optimal LDL: 110-129 mg/dL Borderline High LDL: 130-159 mg/dL High LDL: 160-189 mg/dL Very High LDL: greater than or equal to 190 mg/dL HDL 40 L >40 mg/dL Desirable HDL: greater than 40 mg/dL Note: This HDL assay may give artificially low results in patients with liver disease. Assessment and Plan Assessment & Plan (1) Dyslipidemia: Code(s): E78.5 - Hyperlipidemia, unspecified Plan: Fasting lipids showed results within normal limits. Will continue on rosuvastatin 5 mg 1 tablet 3 times a week in addition to adhering to a low-cholesterol diet and getting regular exercise peer (2) Essential hypertension: Code(s): I10 - Essential (primary) hypertension Plan: Blood pressure is showed systolic pressure elevated on this visit. Patient states that she has been checking her blood pressure at home and it has been running below 130/80. Been feeling well with no complaints at present time, currently followed by Nephrology. Continued on lisinopril and amlodipine at same dose (3) Chronic kidney disease, stage III (moderate): Comment: Followed by Dr. Joyce Code(s): N18.30 - Chronic kidney disease, stage 3 unspecified Plan: Followed by Dr. Silva, avoidance of NSAIDs and currently on lisinopril and amlodipine Orders: Orders Lipid Panel 04/12/24 E78.5 - Hyperlipidemia, unspecified, E89.40 - Asymptomatic postprocedural ovarian failure Aspartate Amino Transferase 04/12/24 E78.5 - Hyperlipidemia, unspecified, E89.40 - Asymptomatic postprocedural ovarian failure Alanine Aminotransferase 04/12/24 E78.5 - Hyperlipidemia, unspecified, E89.40 - Asymptomatic postprocedural ovarian failure Vitamin D 25-OH Total 04/12/24 E78.5 - Hyperlipidemia, unspecified, E89.40 - Asymptomatic postprocedural ovarian failure Coding Level of Care Code Est Pt Level 4 (84208) Diagnoses Dyslipidemia E78.5 Essential hypertension I10 Chronic kidney disease, stage III (moderate) N18.30 Additional Codes BELINDA-7 Assessment Billing - BELINDA-7 Assessment Tool: BELINDA-7 Assessment [id number] ([id number])
== END 2023-10-22 10:44 | disposition home or self-care (01) ==
PROVIDERS: PCP Internal Medicine; Visit Provider Internal Medicine
DX: E78.5 Hyperlipidemia, unspecified (principal); I12.9 Hypertensive chronic kidney disease with stage 1 through stage 4 chronic kidney disease, or unspecified chronic kidney disease; N18.30 Chronic kidney disease, stage 3 unspecified
CPT/HCPCS: 99214

== ENCOUNTER 2024-01-01 08:13 | Outpatient (REF) | payer MEDICARE, OTHER, SELFPAY ==
[2024-01-01 10:55] LABS: Anion Gap 15 (12-20); Blood Urea Nitrogen 14 mg/dL (9-16); Calcium 9.6 mg/dL (8.4-10.2); Carbon Dioxide 24 mmol/L (22-29); Chloride 108 mmol/L (96-108); Estimated Glomerular Filt Rate 58; Potassium 4.6 mmol/L (3.3-5.1); Sodium 142 mmol/L (135-145)
[2024-01-01 11:11] LABS: Protein/Creatinine Ratio, Ur 0.05 (<0.2); Total Protein Urine Random 10 mg/dL (<12)
== END 2024-01-01 08:14 | disposition home or self-care (01) ==
LOC: HO.HMGCLDS 08:13
PROVIDERS: PCP Internal Medicine; Visit Provider Internal Medicine Nephrology
DX: N18.31 Chronic kidney disease, stage 3a (principal); I10 Essential (primary) hypertension
CPT/HCPCS: 36415; 80051; 82310; 82565; 82570; 84156; 84520

== ENCOUNTER 2024-02-05 10:40 | Outpatient (AMB) | payer MEDICARE, OTHER, SELFPAY ==
[2024-02-05 10:46] VITALS: BP 120/80; PULSE 80; O2SAT 98; BMI 26.2
--- NOTE | 2024-02-05 10:46 | HO.NEPHOV_ITS ---
Vital Signs 02/05/24 10:46 Height 5 ft 3 in Weight 148 lb 2 oz BMI 26.2 BP 120/80 Blood Pressure Location Lt brachial Position Sitting Pulse 80 Pulse Source Pulse Oximeter Pulse Oximetry (%) 98 Oxygen Delivery Method Room Air Intake Visit Reasons: Follow up / Conf Special Effects Specialist Required: No Accompanied by: Self / Same As Patient Allergies fentanyl Adverse Reaction (Severe, Verified 02/05/24 10:48) severe nausea simvastatin Adverse Reaction (Unknown, Verified 02/05/24 10:48) muscle pain ENVIRONMENTAL Allergy (Intermediate, Uncoded 10/22/23 09:12) HAYFEVER HPI Comments Details: I had the privilege of seeing Annette in follow-up of her very mild CKD and longstanding hypertension. She had been on carvedilol in the past but could not tolerated and was discontinued. She remains on lisinopril and amlodipine which is keeping her blood pressure at goal. She does not have any chest pain, shortness of breath, paroxysmal nocturnal dyspnea, orthostatic symptoms, pedal edema, hematuria or any urinary symptoms. She maintains good hydration and avoids nonsteroidal anti-inflammatories. She monitors her blood pressure at home and has been at goal. She is trying to maintain a good healthy and balanced diet. There were no new active complaints at the time of this office visit. [facility] Medical History Rash and nonspecific skin eruption Non-toxic multinodular goiter History of COVID-19 Postmenopausal syndrome (~11/2022) Chronic kidney disease, stage III (moderate) Lumbar degenerative disc disease Uterine fibroid Osteopenia of left hip Trigeminal neuralgia Surgical menopause Essential hypertension Dyslipidemia Surgical History Hx of brain surgery Vocal cord cyst History of deviated nasal septum History of back surgery H/O total hysterectomy with bilateral salpingo-oophorectomy (BSO) Family History Father HTN (hypertension) Heart disease DDD (degenerative disc disease) Myocardial infarction Mother Diabetes mellitus Colon cancer Arthritis Hot flashes Daughter Papillary thyroid carcinoma Paternal Aunt CVD (cardiovascular disease) History of heart attack Son No problems noted. Daughter No problems noted. Brother Substance use disorder Brother Substance use disorder Brother Substance use disorder Sister No problems noted. Sister No problems noted. Sister No problems noted. Sister No problems noted. Sister No problems noted. Social History Household Members: Spouse Housing: House Alcohol intake: never Comment: soreness Patient Tobacco Use Status: Never used Tobacco e-Cigarette/Vaping Use: Never Used Second Hand Smoke Exposure: No Advance Directives Date on File: 03/08/21 service: No Current occupational status: retired Cognitive needs: No Hearing needs: No Vision needs: No Physical Exam Vital Signs: Last Vital Signs Pulse 80 02/05/24 10:46 BP 120/80 02/05/24 10:46 Pulse Ox 98 02/05/24 10:46 Oxygen Delivery Method Room Air 02/05/24 10:46 BMI result Body Mass Index 26.2 Const General: comfortable and no acute distress Orientation/consciousness: patient oriented x3 HEENT Head: Yes normocephalic Mouth: Normal oral and palatal mucosa present Eyes EOM: EOMs intact bilaterally Neck Neck: Yes supple Resp Auscultation: clear to auscultation bilaterally Cardio Jugular venous distension: no JVD Rate: regular rate GI Palpation (GI): Soft to palpation Auscultation: normal bowel sounds General: Yes no CVA tenderness Back/Spine/Pelvis Back: no CVA tenderness Skin General skin exam: no rashes or lesions noted Neuro General: patient oriented x3 and moves all extremities Extrem General: Yes no pedal edema Results Reviewed Nephrology Results: Sodium 142 mmol/L (135-145) 01/01/24 Potassium 4.6 mmol/L (3.3-5.1) 01/01/24 Chloride 108 mmol/L (96-108) 01/01/24 Carbon Dioxide 24 mmol/L (22-29) 01/01/24 BUN 14 mg/dL (9-16) 01/01/24 Creatinine 0.95 mg/dL (0.5-1.4) 01/01/24 Calcium 9.6 mg/dL (8.4-10.2) 01/01/24 Urine Creatinine 208.30 mg/dL 01/01/24 Protein/Creatinin Ratio 0.05 (<0.2) 01/01/24 Assessment & Plan Assessment & Plan (1) Essential hypertension: Code(s): I10 - Essential (primary) hypertension Category: Medical Plan Annette has longstanding hypertension. She has no proteinuria. She is tolerating NADINE inhibitor and amlodipine without any side effects. Her renal functions are at baseline. She has no hyperkalemia or edema. Her weight has been stable. She maintains low-sodium diet and keep up with good fluid intake. She was encouraged to remain off nonsteroidal anti-inflammatories. All her recent lab work was reviewed with the patient. I had not make any medication changes today. Follow-up given. Answered all questions. Medications: Changed From lisinopril 40 mg PO DAILY To lisinopril 40 mg PO DAILY 90 tabs 4RF 90 days From amlodipine 2.5 mg PO DAILY To amlodipine 2.5 mg PO DAILY 90 tabs 4RF 90 days Coding Level of Care Code Est Pt Level 4 (66302) Diagnoses Essential hypertension I10
== END 2024-02-05 11:04 | disposition home or self-care (01) ==
PROVIDERS: PCP Internal Medicine; Visit Provider Internal Medicine Nephrology
DX: I10 Essential (primary) hypertension (principal)
CPT/HCPCS: 99214

== ENCOUNTER → 2024-02-05 10:40 | Outpatient (BNVA) | payer MEDICARE, OTHER, SELFPAY | PROVIDERS: PCP Internal Medicine; Visit Provider Internal Medicine Nephrology | DX: I10 Essential (primary) hypertension (principal) | CPT/HCPCS: 99212 ==

== ENCOUNTER 2024-02-25 07:22 | Outpatient (REF) | payer MEDICARE, OTHER, SELFPAY | END 2024-02-25 07:23 | disposition home or self-care (01) | LOC: HO.MAMMO 07:22 | PROVIDERS: PCP Internal Medicine; Visit Provider Internal Medicine | DX: Z12.31 Encounter for screening mammogram for malignant neoplasm of breast (principal) | CPT/HCPCS: 77063; 77067 ==

== ENCOUNTER → 2024-02-25 07:45 | Outpatient (BNV) | payer MEDICARE, OTHER, SELFPAY | PROVIDERS: PCP Internal Medicine; Visit Provider Radiology Diagnostic Radiology | DX: Z12.31 Encounter for screening mammogram for malignant neoplasm of breast (principal) | CPT/HCPCS: 77063; 77067 ==

== ENCOUNTER 2024-04-22 09:36 | Outpatient (REF) | payer MEDICARE, OTHER, SELFPAY ==
[2024-04-22 15:02] LABS: Alanine Aminotransferase 13 U/L (0-31); Aspartate Amino Transferase 17 U/L (5-31); Cholesterol 191 mg/dL (<200); HDL Cholesterol 60 mg/dL (>40); LDL Cholesterol Calculated 107 mg/dL (<100); Triglycerides 123 mg/dL (<150); Vitamin D 25-OH Total 49.2 ng/mL (>30)
== END 2024-04-22 09:37 | disposition home or self-care (01) ==
LOC: HO.HMGCLDS 09:36
PROVIDERS: PCP Internal Medicine; Visit Provider Internal Medicine
DX: E78.5 Hyperlipidemia, unspecified (principal); E89.40 Asymptomatic postprocedural ovarian failure
CPT/HCPCS: 36415; 80061; 82306; 84450; 84460

== ENCOUNTER 2024-04-30 07:50 | Outpatient (AMB) | payer MEDICARE, OTHER, SELFPAY ==
[2024-04-30 08:00] VITALS: BP 122/80; PULSE 86; O2SAT 98; BMI 26.9
--- NOTE | 2024-04-30 08:00 | A.OFFPC_ITS ---
Vital Signs 04/30/24 08:00 Height 5 ft 3 in Weight 152 lb BMI 26.9 BP 122/80 Blood Pressure Location Rt brachial Position Sitting Pulse 86 Pulse Source Pulse Oximeter Pulse Oximetry (%) 98 Oxygen Delivery Method Room Air Intake Visit Reasons: PE Intake Note: Pt is here today for her PE: Last mammogram 02/25/24, colonoscopy08/17/20 Allergies fentanyl Adverse Reaction (Severe, Verified 04/30/24 08:10) severe nausea simvastatin Adverse Reaction (Unknown, Verified 04/30/24 08:10) muscle pain ENVIRONMENTAL Allergy (Intermediate, Uncoded 04/30/24 08:10) HAYFEVER Medication List - Last Reconciled 04/30/24 by Deedee Monaco MD amlodipine 2.5 mg PO DAILY 90 days cholecalciferol (vitamin D3) 2,000 units PO DAILY coenzyme Q10 (CoQ-10) 400 mg PO DAILY estradiol 0.5 mg PO DAILY 30 days ketoconazole 2% 1 appl topical DAILY 10 days lisinopril 40 mg PO DAILY 90 days rosuvastatin 5 mg PO 3XW Tobacco use date assessed: 04/30/24 Fall risk assessment: No Falls in past year Last assessed Fall Risk: 04/30/24 Dental Screening Dental Screen Date: 04/30/24 Did you have a dental visit in the last 12 months?: Yes Did you have a dental problem in the last 6 months where you did not have access to dental care?: No Was dental information given to patient?: Patient has dentist HPI PE HPI Details 74 year old lady with PMHx of chronic kidney disease stage 3 , hypertension currently followed by Nephrology, seen by Dr. Cook for her nontoxic multinodular goiter and osteopenia, and is here today for her physical exam.. She is up-to-date with her breast cancer screen was earlier this year and he is up-to-date with her screening colonoscopy, last done 2020, done by Dr. Gr to be repeated again in 2025 Had recent fasting labs done which showed normal lipids, vitamin-D level [facility] Medical History Rash and nonspecific skin eruption Non-toxic multinodular goiter History of COVID-19 Postmenopausal syndrome (~11/2022) Chronic kidney disease, stage III (moderate) Lumbar degenerative disc disease Uterine fibroid Osteopenia of left hip Trigeminal neuralgia Surgical menopause Essential hypertension Dyslipidemia Surgical History Hx of brain surgery Vocal cord cyst History of deviated nasal septum History of back surgery H/O total hysterectomy with bilateral salpingo-oophorectomy (BSO) Family History Father HTN (hypertension) Heart disease DDD (degenerative disc disease) Myocardial infarction Mother Diabetes mellitus Colon cancer Arthritis Hot flashes Daughter Papillary thyroid carcinoma Paternal Aunt CVD (cardiovascular disease) History of heart attack Son No problems noted. Daughter No problems noted. Brother Substance use disorder Brother Substance use disorder Brother Substance use disorder Sister No problems noted. Sister No problems noted. Sister No problems noted. Sister No problems noted. Sister No problems noted. Social History Household Members: Spouse Housing: House Alcohol intake: never Comment: soreness Patient Tobacco Use Status: Never used Tobacco e-Cigarette/Vaping Use: Never Used Second Hand Smoke Exposure: No Advance Directives Date on File: 03/08/21 service: No Current occupational status: retired Cognitive needs: No Hearing needs: No Vision needs: No Female Reproductive History Menstrual Menopause type: surgical Questionnaire PHQ-9 Over the last 2 weeks, how often have you been bothered by any of the following problems? 1. Little interest or pleasure in doing things: not at all 2. Feeling down, depressed, or hopeless: not at all 3. Trouble falling or staying asleep, or sleeping too much: not at all 4. Feeling tired or having little energy: not at all 5. Poor appetite or overeating: not at all 6. Feeling bad about yourself - or that you are a failure or have let yourself or your family down: not at all 7. Trouble concentrating on things, such as reading the newspaper or watching television: not at all 8. Moving or speaking so slowly that other people could have noticed. Or the opposite - being so fidgety or restless that you have been moving around a lot more than usual: not at all 9. Thoughts that you would be better off or of hurting yourself in some way: not at all Total score: 0 Depression Screening Interpretation: Negative Depression Screening Done: Yes 30339 - PHQ-9 Billing: Yes Source: Developed by Madeline Pierson Kurt Kroenke and colleagues, with an educational stephon from [employer]. Thrive Questionnaire Date Thrive assessed: 10/22/23 I am a: Patient What is your living situation today?: I have a steady place to live Within the past 12 months, did the food you bought not last and you didn't have the money to get more?: Never true Within the past 12 months, did you worry whether your food would run out before you got money to buy more?: Never true Do you have trouble paying for medicines?: No Do you have trouble getting transportation to medical appointments?: No Do you have trouble paying your heating and electricity bill?: No Do you have trouble taking care of your child, family member or friend?: No Do you have trouble with day-to-day activities such as bathing, preparing meals, shopping, managing finances, etc.?: No Are you interested in more education?: No Please select the resources that you would like help with: None Currently or been in a relationship where the following occur: No concerns reported THRIVE Score: 0 AUDIT C Alcohol Use Questionnaire (AUDIT-C) 1. How often do you have a drink containing alcohol?: Never Total Score: 0 BELINDA-7 AMB Questionnaire BELINDA-7 Date BELINDA - 7 assessed: 05/15/23 Feeling nervous, anxious, or on edge: 0 = Not at all Not being able to stop or control worryin = Not at all Worrying too much about different things: 0 = Not at all Trouble relaxin = Not at all Being so restless that it is hard to sit still: 0 = Not at all Becoming easily annoyed or irritable: 0 = Not at all Feeling afraid as if something awful might happen: 0 = Not at all Total BELINDA-7 score (0-4 normal; 5-9 mild; 10-14 moderate; 15-21 severe): 0 Source: Developed by Madeline Pierson Kurt Kroenke and colleagues, with an educational stephon from [employer]. BELINDA-7 Assessment Billing BELINDA-7 Assessment Tool: BELINDA-7 Assessment 60745 Review of Systems Const Denies fatigue and Denies headache(s) Eyes Details: sees Dr Patrick Denies change in vision ENT Reports Normal hearing present, Denies dysphagia and Denies headache(s) Card Denies chest pain, Denies irregular heart rhythm and Denies dyspnea Resp Denies cough and Denies dyspnea GI Denies abdominal pain, Denies change in bowel habits, Denies dysphagia, Denies diarrhea and Denies nausea Reports no additional complaints Musc Denies myalgias, Denies muscle cramps, Denies numbness and Denies tingling Neuro Reports Normal hearing present, Denies headache(s), Denies numbness, Denies Sensory deficit (Neuro) and Denies tingling Psych Denies anxiety and Denies depression Endo Denies fatigue, Denies heat intolerance, Denies polyphagia and Denies polydipsia Sandoval/Lymph Denies easy bruising Aller/Immun Reports no additional complaints Physical exam (Primary Care) Vital Signs: Last Vital Signs Pulse 86 04/30/24 08:00 BP 122/80 04/30/24 08:00 Pulse Ox 98 04/30/24 08:00 Oxygen Delivery Method Room Air 04/30/24 08:00 BMI result Body Mass Index 26.9 Tobacco/Smoking Status: Tobacco use Status Tobacco use date assessed 04/30/24 04/30/24 08:07 Patient Tobacco Use Status Never used Tobacco 04/30/24 08:07 e-Cigarette/Vaping Use Never Used 04/30/24 08:07 PHQ-9: PHQ-9 Score PHQ-9: Total score 0 04/30/24 08:11 Depression Screening Interpretation: Negative Thrive Assessment: Date of Thrive Assessment Date Thrive assessed 10/22/23 04/30/24 08:07 Currently or been in a relationship where the following occur: No concerns reported Const Other: Pleasant, no acute cardiorespiratory distress noted, ambulatory with normal gait HENMT Other: Normocephalic atraumatic, no active nasal drainage, mouth and oropharynx are within normal limits, moist oral mucosa seen Eyes General: appearance normal, both eyes and all related structures Neck Neck: Yes full ROM, Yes no lymphadenopathy and Yes supple Chest Chest palpation & inspection: normal inspection of the chest Breast/axilla palpation: normal palpation of the breasts Resp Effort & Inspection: normal respiratory effort and able to speak in complete sentences Auscultation: clear to auscultation bilaterally Cardio Other: S1-S2 present regular rate and rhythm GI Other: Normal bowel sounds, soft, nontender, no mass palpated General: Yes deferred (hx of JONAH-BSO for uterine fibroids) Back/Spine/Pelvis Back: No back tenderness Skin General skin exam: no rashes or lesions noted Neuro Cranial nerves: Yes Normal hearing present Sensory Exam: No Sensory deficit (Neuro) Extrem General: Yes full ROM, Yes no joint enlargement, Yes no pedal edema, Yes no calf tenderness and Yes normal gait Psych Appearance: grossly normal Mental Status: mental status grossly normal Speech and movement: Normal speech and movement present Affect: normal affect Attitude: cooperative Thought process: Normal thought process present Results Reviewed Results Reviewed: Name: Annette Winslow Age/Sex: 73/F : 1950 Unit#: [id number] Attend Dr: Deedee Monaco MD Re04/22/24 Status: DEP REF Location: [facility] Disch: SPEC : [id number] DENISHA: 04/22/24 STATUS: COMP REQ : [id number] RECD: 04/22/241353 SUBM DR: Deedee Monaco MD COMP: 04/22/24150 ENTERED: 04/22/24-[address]: ORDERED: AST, ALT, Lipid Panel, Vitamin D 25-OH Test Result Flag Reference AST (GOT) 17 5-31 U/L ALT (GPT) 13 0-31 U/L Triglyceride 123 <150 mg/dL Desirable Triglyceride: less than 150 mg/dL Borderline High Triglyceride 150-199 mg/dL High Triglyceride: 200-499 mg/dL Very High Triglyceride: greater than or equal to 5OO mg/dL Cholesterol 191 <200 mg/dL Desirable Cholesterol: less than 200 mg/dL Borderline High Cholesterol: 200-239 mg/dL High Cholesterol: greater than 239 mg/dL LDL Calculated 107 H <100 mg/dL Desirable LDL: less than 100 mg/dL Near Optimal/Above Optimal LDL: 110-129 mg/dL Borderline High LDL: 130-159 mg/dL High LDL: 160-189 mg/dL Very High LDL: greater than or equal to 190 mg/dL HDL 60 >40 mg/dL Desirable HDL: greater than 40 mg/dL Note: This HDL assay may give artificially low results in patients with liver disease. Vit D 25-OH Tot 49.2 >30 ng/mL Health Based Reference Values* < 20 ng/mL Deficient 20-30 ng/mL Insufficient > 30 ng/mL Sufficient Assessment and Plan Assessment & Plan (1) Annual visit for general adult medical examination with abnormal findings: Code(s): Z00.01 - Encounter for general adult medical examination with abnormal findings Plan: Reviewed recent fasting lab results with patient, continue with regular dental prophylaxis every [address] Patrick for her eye exam.. Take adequate calcium in diet and vitamin-D 3 at 2000 IU per cap once a day, in addition to weight-bearing exercises to help maintain good muscle tone and weight control. Instructed to do self-breast exam, and continue yearly mammogram. . Up-to-date with all her vaccines, screening colonoscopy not due until [address] Gr (2) Dyslipidemia: Code(s): E78.5 - Hyperlipidemia, unspecified Plan: Reviewed recent fasting lipid profile with patient with levels within normal limit . Continue rosuvastatin 5 mg 1 tablet 3 times a week , in addition to adherence to low-cholesterol diet and regular exercise, at least 30 minutes 3 to 4 times a week. Advised patient to make healthy food choices, eat more fruits, vegetables, whole grains, wild caught fish and low-fat dairy. Limit amount of meat and fried or fatty food products, as well as processed foods and fast foods. Follow-up scheduled with repeat fasting lipid panel in 3 months. (3) Essential hypertension: Code(s): I10 - Essential (primary) hypertension Plan: Blood pressure at goal of less than 130/80. Continue with current medication. Sees Dr. Silva. Reinforced importance of following a low sodium diet, getting regular exercise, and lowering stress levels. (4) Osteopenia of left hip: Code(s): M85.852 - Other specified disorders of bone density and structure, left thigh Plan: Continue taking vitamin-D 3 supplements 2000 units daily adequate calcium from dietary sources and encouraged to do weight-bearing exercises, will repeat another bone density scan next year together with her mammogram (5) Postmenopausal syndrome: Onset Date: ~11/2022 Code(s): N95.1 - Menopausal and female climacteric states Plan: Continue estradiol 0.5 mg once daily (6) Non-toxic multinodular goiter: Comment: Followed by Dr. Cook Code(s): E04.2 - Nontoxic multinodular goiter Plan: Repeat TSH and free T4 ordered for to be done later this year, and thyroid ultrasound ordered. (7) Encounter for counseling regarding advance directives: Code(s): Z71.89 - Other specified counseling Orders: Orders Lipid Panel 07/12/24 E04.2 - Nontoxic multinodular goiter, E78.5 - Hyperlipidemia, unspecified, E89.40 - Asymptomatic postprocedural ovarian failure, I10 - Essential (primary) hypertension, M85.852 - Other specified disorders of bone density and structure, left thigh, N95.1 - Menopausal and female climacteric states, Z00.01 - Encounter for general adult medical examination with abnormal findings, Z71.89 - Other specified counseling Alanine Aminotransferase 07/12/24 E04.2 - Nontoxic multinodular goiter, E78.5 - Hyperlipidemia, unspecified, E89.40 - Asymptomatic postprocedural ovarian failure, I10 - Essential (primary) hypertension, M85.852 - Other specified disorders of bone density and structure, left thigh, N95.1 - Menopausal and female climacteric states, Z00.01 - Encounter for general adult medical examination with abnormal findings, Z71.89 - Other specified counseling Aspartate Amino Transferase 07/12/24 E04.2 - Nontoxic multinodular goiter, E78.5 - Hyperlipidemia, unspecified, E89.40 - Asymptomatic postprocedural ovarian failure, I10 - Essential (primary) hypertension, M85.852 - Other specified disorders of bone density and structure, left thigh, N95.1 - Menopausal and female climacteric states, Z00.01 - Encounter for general adult medical examination with abnormal findings, Z71.89 - Other specified counseling Basic Metabolic Panel Fasting 07/12/24 E04.2 - Nontoxic multinodular goiter, E78.5 - Hyperlipidemia, unspecified, E89.40 - Asymptomatic postprocedural ovarian failure, I10 - Essential (primary) hypertension, M85.852 - Other specified disorders of bone density and structure, left thigh, N95.1 - Menopausal and female climacteric states, Z00.01 - Encounter for general adult medical examination with abnormal findings, Z71.89 - Other specified counseling Free T4 (Free Thyroxine) 07/12/24 E04.2 - Nontoxic multinodular goiter, E78.5 - Hyperlipidemia, unspecified, E89.40 - Asymptomatic postprocedural ovarian failu re, I10 - Essential (primary) hypertension, M85.852 - Other specified disorders of bone density and structure, left thigh, N95.1 - Menopausal and female climacteric states, Z00.01 - Encounter for general adult medical examination with abnormal findings, Z71.89 - Other specified counseling Thyroid Stimulating Hormone 07/12/24 E04.2 - Nontoxic multinodular goiter, E78.5 - Hyperlipidemia, unspecified, E89.40 - Asymptomatic postprocedural ovarian failure, I10 - Essential (primary) hypertension, M85.852 - Other specified disorders of bone density and structure, left thigh, N95.1 - Menopausal and female climacteric states, Z00.01 - Encounter for general adult medical examination with abnormal findings, Z71.89 - Other specified counseling Vitamin D 25-OH Total 07/12/24 E04.2 - Nontoxic multinodular goiter, E78.5 - Hyperlipidemia, unspecified, E89.40 - Asymptomatic postprocedural ovarian failure, I10 - Essential (primary) hypertension, M85.852 - Other specified disorders of bone density and structure, left thigh, N95.1 - Menopausal and female climacteric states, Z00.01 - Encounter for general adult medical examination with abnormal findings, Z71.89 - Other specified counseling thyroid Today E04.2 - Nontoxic multinodular goiter XR DEXA axial skeleton 03/02/25 E89.40 - Asymptomatic postprocedural ovarian failure, M85.852 - Other specified disorders of bone density and structure, left thigh, N95.1 - Menopausal and female climacteric states Coding Level of Care Code Est Pt Prev Care >65y(89830) Diagnoses Annual visit for general adult medical examination with abnormal findings Z00.01 Dyslipidemia E78.5 Essential hypertension I10 Osteopenia of left hip M85.852 Postmenopausal syndrome N95.1 Non-toxic multinodular goiter E04.2 Encounter for counseling regarding advance directives Z71.89 Additional Codes BELINDA-7 Assessment Billing - BELINDA-7 Assessment Tool: BELINDA-7 Assessment [id number] ([id number])
== END 2024-04-30 08:40 | disposition home or self-care (01) ==
PROVIDERS: PCP Internal Medicine; Visit Provider Internal Medicine
DX: Z00.01 Encounter for general adult medical examination with abnormal findings (principal); E78.5 Hyperlipidemia, unspecified; I10 Essential (primary) hypertension; M85.852 Other specified disorders of bone density and structure, left thigh; N95.1 Menopausal and female climacteric states; E04.2 Nontoxic multinodular goiter; Z71.89 Other specified counseling

== ENCOUNTER → 2024-04-30 07:50 | Outpatient (BNVA) | payer MEDICARE, OTHER, SELFPAY | PROVIDERS: PCP Internal Medicine; Visit Provider Internal Medicine | DX: Z00.01 Encounter for general adult medical examination with abnormal findings (principal); E78.5 Hyperlipidemia, unspecified; I10 Essential (primary) hypertension; N95.1 Menopausal and female climacteric states; M85.852 Other specified disorders of bone density and structure, left thigh; E04.2 Nontoxic multinodular goiter; Z71.89 Other specified counseling | CPT/HCPCS: 96127 ==

== ENCOUNTER 2024-05-14 08:12 | Outpatient (REF) | payer MEDICARE, OTHER, SELFPAY ==
--- NOTE | ~2024-05-14 | US_ITS ---
EXAMINATION: US THYROID CLINICAL INFORMATION: Nontoxic multinodular goiter. COMPARISON: Ultrasound thyroid 01/25/2023 and 04/18/2022. TECHNIQUE: Linear transducer grayscale and color Doppler examination with attention to the region of the thyroid. FINDINGS: SIZE: Measurements of the thyroid lobes and nodules are given in sagittal, anteroposterior and transverse dimensions respectively. Right Thyroid Lobe: 6.1 x 1.8 x 1.8 cm, volume 10.4 mL. Previously 5.6 x 1.8 x 1.6 cm, volume 8.4 mL. Parenchyma: The gland echotexture is heterogeneous. Thyroid vascularity is normal. Left Thyroid Lobe: Surgically absent. Isthmus: 0.3 cm in maximum AP dimension. Previously 0.3 cm. Estimated total number of nodules greater than or equal to 1 cm: 5. Laboratory Courier nodules are described as follows: 1. Location: Right upper pole. Size: 1.0 x 0.7 x 1.0 cm, volume 0.33 mL. Previously: 1.0 x 0.6 x 1.0 cm, volume 0.30 mL. Nodule characteristics: Composition: Spongiform (0). ACR TI-RADS total points: 0 Previous: 0 ACR TI-RADS category: 1 Previous: 1 2. Location: Right upper pole. Size: 1.0 x 0.6 x 0.7 cm, volume 0.21 mL. Previously: Not seen on prior study. Nodule characteristics: Composition: Spongiform (0). ACR TI-RADS total points: 0 Previous: N/A ACR TI-RADS category: 1 Previous: N/A 3. Location: Right mid pole. Size: 1.4 x 0.7 x 1.1 cm, volume 0.51 mL. Previously: 1.3 x 0.7 x 0.9 cm, volume 0.46 mL. Nodule characteristics: Composition: Solid/almost completely solid (2). Hypoechoic, not taller than wide, ill-defined margins, no internal calcification. ACR TI-RADS total points: 4 Previous: 0 ACR TI-RADS category: 4 Previous: 1 4. Location: Right midpole. Size: 1.1 x 0.5 x 0.9 cm, volume 0.26 mL. Previously: 0.9 x 0.6 x 0.8 cm, volume 0.22 mL. Nodule characteristics: Composition: Spongiform (0). ACR TI-RADS total points: 0 Previous: 0 ACR TI-RADS category: 1 Previous: 1 5. Location: Right lower pole. Size: 1.3 x 0.6 x 0.9 cm, volume 0.34 mL. Previously: 0.8 x 0.5 x 0.9 cm, volume 0.20 mL. Nodule characteristics: Composition: Spongiform (0). ACR TI-RADS total points: 0 Previous: 0 ACR TI-RADS category: 1 Previous: 1 NODES: No lymphadenopathy.. US/US thyroid IMPRESSION: There has been no significant change in thyroid nodules allowing for interobserver variability. Continued surveillance recommended.. 1 year follow-up advised. Status post left thyroidectomy.. ACR TI-RADS RECOMMENDATION REFERENCE: Ultrasound-guided fine-needle aspiration, follow up ultrasound, no further followup. * TR1 (0 point) and TR2 (2 points): No FNA or followup * TR3 (3 points): FNA if more than or equal to 2.5 cm in maximum dimension, follow up ultrasound in 1, 3 and 5 years if 1.5 to 2.4 cm in maximum dimension. * TR4 (4-6 points): FNA if more than or equal to 1.5 cm in maximum dimension, follow up ultrasound in 1, 2, 3 and 5 years if 1 to 1.4 cm in maximum dimension. * TR5 (more than or equal to 7 points): FNA if more than or equal to 1 cm in maximum dimension, follow up ultrasound every year for 5 years if 0.5 to 0.9 cm in maximum dimension. * TR3, TR4 or TR5 nodules that are below the size threshold for follow up receive no followup. Electronically signed by: Jayme Noriega MD 06/25/2024 08:32 AM EST
== END 2024-05-14 08:13 | disposition home or self-care (01) ==
LOC: HO.HMGCX 08:12
PROVIDERS: PCP Internal Medicine; Visit Provider Internal Medicine
DX: E04.2 Nontoxic multinodular goiter (principal)
CPT/HCPCS: 76536

== ENCOUNTER 2024-07-28 08:24 | Outpatient (REF) | payer MEDICARE, OTHER, SELFPAY ==
[2024-07-28 10:29] LABS: Alanine Aminotransferase 16 U/L (0-31); Anion Gap 9 (12-20); Aspartate Amino Transferase 20 U/L (5-31); Blood Urea Nitrogen 17 mg/dL (9-16); Carbon Dioxide 26 mmol/L (22-29); Chloride 108 mmol/L (96-108); Cholesterol 183 mg/dL (<200); Estimated Glomerular Filt Rate 53; Glucose Fasting 94 mg/dL (60-99); HDL Cholesterol 52 mg/dL (>40); LDL Cholesterol Calculated 108 mg/dL (<100); Potassium 4.3 mmol/L (3.3-5.1); Sodium 139 mmol/L (135-145); Triglycerides 116 mg/dL (<150)
[2024-07-28 10:46] LABS: Free T4 (Free Thyroxine) 0.96 ng/dL (0.71-1.85); Vitamin D 25-OH Total 40.8 ng/mL (>30)
== END 2024-07-28 08:25 | disposition home or self-care (01) ==
LOC: HO.HMGCLDS 08:24
PROVIDERS: PCP Internal Medicine; Visit Provider Internal Medicine
DX: Z00.01 Encounter for general adult medical examination with abnormal findings (principal); Z71.89 Other specified counseling; E78.5 Hyperlipidemia, unspecified; I10 Essential (primary) hypertension; E89.40 Asymptomatic postprocedural ovarian failure; M85.852 Other specified disorders of bone density and structure, left thigh; E04.2 Nontoxic multinodular goiter
CPT/HCPCS: 36415; 80048; 80061; 82306; 84439; 84443; 84450; 84460

== ENCOUNTER 2024-07-30 07:43 | Outpatient (AMB) | payer MEDICARE, OTHER, SELFPAY ==
--- NOTE | 2024-07-30 08:06 | MHC.PC.OV ---
Vital Signs 07/30/24 08:10 Height 5 ft 3 in Weight 151 lb BMI 26.7 BP 140/90 H Blood Pressure Location Lt brachial Position Sitting Pulse 92 Pulse Source Pulse Oximeter Pulse Oximetry (%) 98 Oxygen Delivery Method Room Air Intake Visit Reasons: 3m follow up on labs Intake Note: Pt is here today for her 3mo. f/u Allergies fentanyl Adverse Reaction (Severe, Verified 07/30/24 08:23) severe nausea simvastatin Adverse Reaction (Unknown, Verified 07/30/24 08:23) muscle pain ENVIRONMENTAL Allergy (Intermediate, Uncoded 07/30/24 08:23) HAYFEVER Medication List - Last Reconciled 07/30/24 by Deedee Monaco MD amlodipine 2.5 mg PO DAILY 90 days cholecalciferol (vitamin D3) 2,000 units PO DAILY coenzyme Q10 (CoQ-10) 400 mg PO DAILY estradiol 0.5 mg PO DAILY 30 days ketoconazole 2% 1 appl topical DAILY 10 days lisinopril 40 mg PO DAILY 90 days rosuvastatin 5 mg PO 3XW Tobacco use date assessed: 07/30/24 Fall risk assessment: No Falls in past year Last assessed Fall Risk: 07/30/24 Dental Screening Dental Screen Date: 07/30/24 Did you have a dental visit in the last 12 months?: Yes Did you have a dental problem in the last 6 months where you did not have access to dental care?: No Was dental information given to patient?: Patient has dentist HPI 3m follow up on labs HPI Details 74 year old lady with PMHx of chronic kidney disease stage 3 , hypertension currently followed by Nephrology, seen by Dr. Cook for her nontoxic multinodular goiter and osteopenia, and is here today for follow up on her lipids . Currently taking rosuvastatin together with Coq10 , no adverse effects reported . Up to date with her mammogram , colonoscopy and all her vaccines , but overdue for her Bone density scan . Last done in 2019 , showing osteopenia in left hip. [facility] Medical History Rash and nonspecific skin eruption Non-toxic multinodular goiter History of COVID-19 Postmenopausal syndrome (~11/2022) Chronic kidney disease, stage III (moderate) Lumbar degenerative disc disease Uterine fibroid Osteopenia of left hip Trigeminal neuralgia Surgical menopause Essential hypertension Dyslipidemia Surgical History Hx of brain surgery Vocal cord cyst History of deviated nasal septum History of back surgery H/O total hysterectomy with bilateral salpingo-oophorectomy (BSO) Family History Father HTN (hypertension) Heart disease DDD (degenerative disc disease) Myocardial infarction Mother Diabetes mellitus Colon cancer Arthritis Hot flashes Daughter Papillary thyroid carcinoma Paternal Aunt CVD (cardiovascular disease) History of heart attack Son No problems noted. Daughter No problems noted. Brother Substance use disorder Brother Substance use disorder Brother Substance use disorder Sister No problems noted. Sister No problems noted. Sister No problems noted. Sister No problems noted. Sister No problems noted. Social History Household Members: Spouse Housing: House Alcohol intake: never Comment: soreness Patient Tobacco Use Status: Never used Tobacco e-Cigarette/Vaping Use: Never Used Second Hand Smoke Exposure: No Advance Directives Date on File: 03/08/21 service: No Current occupational status: retired Cognitive needs: No Hearing needs: No Vision needs: No Questionnaire PHQ-9 Over the last 2 weeks, how often have you been bothered by any of the following problems? Depression Screening Interpretation: Negative Depression Screening Done: Yes Source: Developed by Drs. David Jay, Madeline Lopez, Norbert Basilio and colleagues, with an educational stephon from [employer]. Thrive Questionnaire Date Thrive assessed: 10/22/23 I am a: Patient What is your living situation today?: I have a steady place to live Within the past 12 months, did the food you bought not last and you didn't have the money to get more?: Never true Within the past 12 months, did you worry whether your food would run out before you got money to buy more?: Never true Do you have trouble paying for medicines?: No Do you have trouble getting transportation to medical appointments?: No Do you have trouble paying your heating and electricity bill?: No Do you have trouble taking care of your child, family member or friend?: No Do you have trouble with day-to-day activities such as bathing, preparing meals, shopping, managing finances, etc.?: No Are you currently unemployed and looking for a job?: No Are you interested in more education?: No Please select the resources that you would like help with: None Currently or been in a relationship where the following occur: No concerns reported THRIVE Score: 0 AUDIT C Alcohol Use Questionnaire (AUDIT-C) 2. How many drinks containing alcohol do you have on a typical day when you are drinking?: 1 or 2 3. How often do you have six or more drinks on one occasion?: Never Total Score: 0 BELINDA-7 AMB Questionnaire BELINDA-7 Date BELINDA - 7 assessed: 05/15/23 Source: Developed by Drs. David Jya, Madeline Lopez, Norbert Basilio and colleagues, with an educational stephon from [employer]. Review of Systems Const Denies fatigue and Denies headache(s) Eyes Details: sees Dr Patrick Denies change in vision ENT Reports Normal hearing present, Denies dysphagia and Denies headache(s) Card Denies chest pain, Denies irregular heart rhythm and Denies dyspnea Resp Denies cough and Denies dyspnea GI Denies abdominal pain, Denies change in bowel habits, Denies dysphagia, Denies diarrhea and Denies nausea Reports no additional complaints Musc Denies myalgias, Denies muscle cramps, Denies numbness and Denies tingling Neuro Reports Normal hearing present, Denies headache(s), Denies numbness, Denies Sensory deficit (Neuro) and Denies tingling Psych Denies anxiety and Denies depression Endo Denies fatigue, Denies heat intolerance, Denies polyphagia and Denies polydipsia Sandoval/Lymph Denies easy bruising Aller/Immun Reports no additional complaints Physical exam (Primary Care) Vital Signs: Last Vital Signs Pulse 92 07/30/24 08:10 BP 140/90 H 07/30/24 08:10 Pulse Ox 98 07/30/24 08:10 Oxygen Delivery Method Room Air 07/30/24 08:10 BMI result Body Mass Index 26.7 Tobacco/Smoking Status: Tobacco use Status Tobacco use date assessed 07/30/24 07/30/24 08:08 Patient Tobacco Use Status Never used Tobacco 07/30/24 08:06 e-Cigarette/Vaping Use Never Used 07/30/24 08:06 Depression Screening Interpretation: Negative Thrive Assessment: Date of Thrive Assessment Date Thrive assessed 10/22/23 07/30/24 08:06 Currently or been in a relationship where the following occur: No concerns reported Const Other: Pleasant, no acute cardiorespiratory distress noted, ambulatory with normal gait HENDE Other: Normocephalic atraumatic, no active nasal drainage, mouth and oropharynx are within normal limits, moist oral mucosa seen Eyes General: appearance normal, both eyes and all related structures Neck Neck: Yes full ROM, Yes no lymphadenopathy and Yes supple Resp Effort & Inspection: normal respiratory effort and able to speak in complete sentences Auscultation: clear to auscultation bilaterally Cardio Other: S1-S2 present regular rate and rhythm GI Other: Normal bowel sounds, soft, nontender, no mass palpated General: Yes deferred (hx of JONAH-BSO for uterine fibroids) Back/Spine/Pelvis Back: No back tenderness Skin General skin exam: no rashes or lesions noted Neuro Cranial nerves: Yes Normal hearing present Sensory Exam: No Sensory deficit (Neuro) Extrem General: Yes full ROM, Yes no joint enlargement, Yes no pedal edema, Yes no calf tenderness and Yes normal gait Psych Appearance: grossly normal Mental Status: mental status grossly normal Speech and movement: Normal speech and movement present Affect: normal affect Attitude: cooperative Thought process: Normal thought process present Results Reviewed Results Reviewed: Name: Annette Winslow Age/Sex: 74/F : 1950 Unit#: [id number] Attend Dr: Deedee Monaco MD Re07/28/24 Status: DEP REF Location: HO.[facility] Disch: SPEC : [id number] DENISHA: 07/28/24 STATUS: COMP REQ : [id number] RECD: 07/28/[address]: Deedee Monaco MD COMP: 07/28/24 ENTERED: 07/28/[address]: ORDERED: Met Prof Fast, AST, ALT, Lipid Panel, Vitamin D 25-OH, Free T4, TSH Test Result Flag Reference Sodium 139 135-145 mmol/L Potassium 4.3 3.3-5.1 mmol/L CL 108 96-108 mmol/L CO2 26 22-29 mmol/L Gap 9 L 12-20 BUN 17 H 9-16 mg/dL Creat 1.02 0.5-1.4 mg/dL eGFR 53 Chronic Kidney Disease: Estimated GFR < 60 mL/min/1.73m2 Severe Kidney Disease: Estimated GFR < 15 mL/min/1.73m2 FBS 94 60-99 mg/dL CA 9.0 # 8.4-10.2 mg/dL AST (GOT) 20 5-31 U/L ALT (GPT) 16 0-31 U/L Triglyceride 116 <150 mg/dL Desirable Triglyceride: less than 150 mg/dL Borderline High Triglyceride 150-199 mg/dL High Triglyceride: 200-499 mg/dL Very High Triglyceride: greater than or equal to 5OO mg/dL Cholesterol 183 <200 mg/dL Desirable Cholesterol: less than 200 mg/dL Borderline High Cholesterol: 200-239 mg/dL High Cholesterol: greater than 239 mg/dL LDL Calculated 108 H <100 mg/dL Desirable LDL: less than 100 mg/dL Near Optimal/Above Optimal LDL: 110-129 mg/dL Borderline High LDL: 130-159 mg/dL High LDL: 160-189 mg/dL Very High LDL: greater than or equal to 190 mg/dL HDL 52 >40 mg/dL Desirable HDL: greater than 40 mg/dL Note: This HDL assay may give artificially low results in patients with liver disease. Vit D 25-OH Tot 40.8 >30 ng/mL Health Based Reference Values* < 20 ng/mL Deficient 20-30 ng/mL Insufficient > 30 ng/mL Sufficient *Dann RODGERS. N Engl J Med. 2007;357:266-280 Care must be taken in interpreting Vitamin D results from different laboratories and methodologies. Published data demonstrated that results from patients undergoing hemodialysis may show a negative bias when tested with various automated 25-OH vitamin D assays when compared to LC-MS/MS. When testing samples from patients whose predominant form of Vitamin D is Vitamin D2, such as patients receiving Vitamin D2 supplementation, results that are subtherapeutic should be confirmed with another method such as LC-MS/MS. Free T4 0.96 0.71-1.85 ng/dL TSH 3rd Gen. 0.40 0.32-4.0 uIU/mL TSH 3rd Generation ([facility]) Coding Level of Care Code Est Pt Level 4 (28222) Complex EM visit Add On G2211 Diagnoses Osteopenia of left hip M85.852 Dyslipidemia E78.5 Essential hypertension I10 Assessment & Plan Assessment & Plan (1) Osteopenia of left hip: Code(s): M85.852 - Other specified disorders of bone density and structure, left thigh Category: Medical Plan: ordered Bone density scan , to be scheduled together with screening mammogram on 03/02/25. continue with weight-bearing exercises , and Vitamin d and calcium intake (2) Dyslipidemia: Code(s): E78.5 - Hyperlipidemia, unspecified Category: Medical Plan: fatsing lipids within normal limits . continue Rosuvastatin (3) Essential hypertension: Code(s): I10 - Essential (primary) hypertension Category: Medical Plan: Systolic BP slightly higher than normal , reinforced importance of following a low salt diet , continue on present treatment Orders: Orders XR DEXA axial skeleton Today M85.852 - Other specified disorders of bone density and structure, left thigh
[2024-07-30 08:10] VITALS: BP 140/90; PULSE 92; O2SAT 98; BMI 26.7
== END 2024-07-30 08:45 | disposition home or self-care (01) ==
PROVIDERS: PCP Internal Medicine; Visit Provider Internal Medicine
DX: M85.852 Other specified disorders of bone density and structure, left thigh (principal); E78.5 Hyperlipidemia, unspecified; I10 Essential (primary) hypertension

== ENCOUNTER → 2024-07-30 07:43 | Outpatient (BNVA) | payer MEDICARE, OTHER, SELFPAY | PROVIDERS: PCP Internal Medicine; Visit Provider Internal Medicine | DX: M85.852 Other specified disorders of bone density and structure, left thigh (principal); E78.5 Hyperlipidemia, unspecified; I10 Essential (primary) hypertension | CPT/HCPCS: 99212 ==

== ENCOUNTER 2025-02-01 07:30 | Outpatient (REF) | payer MEDICARE, OTHER, SELFPAY ==
--- OUTSIDE RECORDS SUMMARY | 2025-02-01 07:33 | XMS_ITS | Patient Health Record ---
Author Organization [facility] Address [address] [place] [address] Care Team Providers Care Lining Machine Operator Name Role Phone Jacinda PANTOJA, Deedee Andersen Primary Care Provider Un available Lavon Sims Unavailable [phone] Allergies Allergen (clinical drug ingredient) Drug/Non Drug Allergy documented on EMR Reaction Allergy Type Onset Date Status meperidine demerol (uncoded) nausea and vomiting Allergy Active Reason For Referral No Information Medications Medication SIG (Take, Route, Frequency, Duration) Notes Start Date End Date Status Lisinopril 20 MG 1 tablet Orally Once a day for 30 day(s) 06/02/2019 Active hydroCHLOROthiazide 12.5 MG 1 capsule in the morning Orally Once a day for 30 day(s) 06/02/2019 Active Night Splint AFO - L1930 as directed 07/06/2019 Active Simvastatin 20 MG 1 tablet in the evening Orally Once a day for 30 day(s) Not-Taking Pravastatin Sodium A ctive Estradiol 0.5 MG 1 tablet Orally Daily for Three Weeks, 1 Week off for 30 day(s) Not-Taking Levothyroxine Sodium 25 MCG 1 tablet on an empty stomach in the morning Orally Once a day for 30 day(s) 06/02/2019 Active Social History Tobacco Use: Social History Observation Description Date Details (start date - stop date) Former Smoker NA - NA Tobacco Use/Smoking Question Answer Notes Are you a: former smoker Additional Findings: Tobacco Non-User Cu rrent non-smoker, but past smoking history unknown,Ex-light cigarette smoker (1-9/day) Plan Of Treatment Pending Test Test Name Order Date X ray : Foot, right 3V 07/06/2019 X ray : Foot, right 3V 03/25/2013 Insurance Providers Payer Name Payer Address Payer Phone Subscriber Number Group Number Insured Name Patient Relationship to Insured Coverage Start Date Coverage End Date [employer] [place] Medicare [employer]age [facility] [address] [place] [address] [id number] Annette Winslow Self - patient is the insured Medical (General) History Medical History History ICD Code back, hip, knee pain sinus conditions joint implants/screws Broken bones High blood pressure Measles Mumps Chicken pox Joint implants/screws Surgical History Surgery Date(Month/Year) sinus surgery hysterectomy 1995 back surgery 2000
[2025-02-01 11:01] LABS: Creatinine Urine 164.93 mg/dL; Protein/Creatinine Ratio, Ur 0.06 (<0.2); Total Protein Urine Random 10 mg/dL (<12)
[2025-02-01 11:35] LABS: Anion Gap 12 (12-20); Blood Urea Nitrogen 12 mg/dL (9-16); Carbon Dioxide 24 mmol/L (22-29); Chloride 109 mmol/L (96-108); Estimated Glomerular Filt Rate 58; Potassium 4.3 mmol/L (3.3-5.1); Sodium 141 mmol/L (135-145)
== END 2025-02-01 07:31 | disposition home or self-care (01) ==
LOC: HO.HMGCLDS 07:30
PROVIDERS: PCP Internal Medicine; Visit Provider Internal Medicine Nephrology
DX: I10 Essential (primary) hypertension (principal)
CPT/HCPCS: 36415; 80051; 82565; 82570; 84156; 84520

== ENCOUNTER 2025-02-03 09:20 | Outpatient (AMB) | payer MEDICARE, OTHER, SELFPAY ==
[2025-02-03 09:22] VITALS: BP 130/82; PULSE 75; O2SAT 100; BMI 25.0
--- NOTE | 2025-02-03 09:22 | HO.NEPHOV_ITS ---
Vital Signs 02/03/25 09:22 Height 5 ft 3 in Weight 141 lb 2 oz BMI 25.0 BP 130/82 Blood Pressure Location Lt brachial Position Sitting Pulse 75 Pulse Source Pulse Oximeter Pulse Oximetry (%) 100 Oxygen Delivery Method Room Air Intake Visit Reasons: 1 yr fu w/ labs-Conf Intake Note: Patient here for a follow-up. Security Professionals Required: No Accompanied by: Self / Same As Patient Allergies fentanyl Adverse Reaction (Severe, Verified 02/03/25 09:27) severe nausea simvastatin Adverse Reaction (Unknown, Verified 02/03/25 09:27) muscle pain ENVIRONMENTAL Allergy (Intermediate, Uncoded 07/30/24 08:23) HAYFEVER Do you need a note to return to daycare/school/sports/work: No HPI Comments Details: Annette in follow-up of her very mild CKD and longstanding hypertension. (She had been on carvedilol in the past but could not tolerated and was discontinued). She remains on lisinopril and amlodipine which is keeping her blood pressure at goal. She does not have any chest pain, shortness of breath, paroxysmal nocturnal dyspnea, orthostatic symptoms, pedal edema, hematuria or any urinary symptoms. She maintains good hydration and avoids nonsteroidal anti-inflammatories. She monitors her blood pressure at home and has been at goal. She is trying to maintain a good healthy and balanced diet. There were no new active complaints at the time of this office visit. [facility] Medical History Rash and nonspecific skin eruption Non-toxic multinodular goiter History of COVID-19 Postmenopausal syndrome (~11/2022) Chronic kidney disease, stage III (moderate) Lumbar degenerative disc disease Uterine fibroid Osteopenia of left hip Trigeminal neuralgia Surgical menopause Essential hypertension Dyslipidemia Surgical History Hx of brain surgery Vocal cord cyst History of deviated nasal septum History of back surgery H/O total hysterectomy with bilateral salpingo-oophorectomy (BSO) Family History Father HTN (hypertension) Heart disease DDD (degenerative disc disease) Myocardial infarction Mother Diabetes mellitus Colon cancer Arthritis Hot flashes Daughter Papillary thyroid carcinoma Paternal Aunt CVD (cardiovascular disease) History of heart attack Son No problems noted. Daughter No problems noted. Brother Substance use disorder Brother Substance use disorder Brother Substance use disorder Sister No problems noted. Sister No problems noted. Sister No problems noted. Sister No problems noted. Sister No problems noted. Social History Household Members: Spouse Housing: House Alcohol intake: never Comment: soreness Patient Tobacco Use Status: Never used Tobacco e-Cigarette/Vaping Use: Never Used Second Hand Smoke Exposure: No Advance Directives Date on File: 03/08/21 service: No Current occupational status: retired Cognitive needs: No Hearing needs: No Vision needs: No Review of Systems Const All systems reviewed & are unremarkable except as noted in HPI and below Physical Exam Vital Signs: Last Vital Signs Pulse 75 02/03/25 09:22 BP 130/82 02/03/25 09:22 Pulse Ox 100 02/03/25 09:22 Oxygen Delivery Method Room Air 02/03/25 09:22 BMI result Body Mass Index 25.0 Const General: comfortable and no acute distress Orientation/consciousness: patient oriented x3 HEENT Head: Yes normocephalic Mouth: Normal oral and palatal mucosa present Eyes EOM: EOMs intact bilaterally Neck Neck: Yes supple Resp Auscultation: clear to auscultation bilaterally Cardio Jugular venous distension: no JVD Rate: regular rate GI Palpation (GI): Soft to palpation Auscultation: normal bowel sounds General: Yes no CVA tenderness Back/Spine/Pelvis Back: no CVA tenderness Skin General skin exam: no rashes or lesions noted Neuro General: patient oriented x3 and moves all extremities Extrem General: Yes no pedal edema Results Reviewed Nephrology Results: Sodium, (135-145) 141 mmol/L 02/01/25 Potassium, (3.3-5.1) 4.3 mmol/L 02/01/25 Chloride, (96-108) 109 mmol/L H 02/01/25 Carbon Dioxide, (22-29) 24 mmol/L 02/01/25 BUN, (9-16) 12 mg/dL 02/01/25 Creatinine, (0.5-1.4) 0.95 mg/dL 02/01/25 Calcium, (8.4-10.2) 9.0 mg/dL Δ 07/28/24 Urine Creatinine 164.93 mg/dL 02/01/25 Protein/Creatinin Ratio, (<0.2) 0.06 02/01/25 Assessment & Plan Assessment & Plan (1) Essential hypertension: Code(s): I10 - Essential (primary) hypertension Category: Medical Plan Annette has longstanding hypertension. She has no proteinuria. She is tolerating NADINE inhibitor and amlodipine without any side effects. Her renal functions are at baseline. She has no hyperkalemia or edema. She maintains low- sodium diet and keep up with good fluid intake. She was encouraged to remain off nonsteroidal anti-inflammatories. All her recent lab work was reviewed with the patient. I had not make any medication changes today. Follow-up given. Answered all questions. Orders: Orders Calcium 1 Year I10 - Essential (primary) hypertension Protein Creatinine Ratio, Ur 1 Year I10 - Essential (primary) hypertension Electrolytes 1 Year I10 - Essential (primary) hypertension Blood Urea Nitrogen 1 Year I10 - Essential (primary) hypertension Creatinine 1 Year I10 - Essential (primary) hypertension Coding Level of Care Code Est Pt Level 4 (69693) Diagnoses Essential hypertension I10
--- OUTSIDE RECORDS SUMMARY | 2025-02-03 10:16 | XMS_ITS | Patient Health Record ---
Author Organization [facility] Address [address] [place] [address] Care Team Providers Care Membership Coordinator Name Role Phone Jacinda PANTOJA, Deedee Andersen Primary Care Provider Un available Lavon Sims Unavailable [phone] Allergies Allergen (clinical drug ingredient) Drug/Non Drug [...] Date X ray : Foot, right 3V 03/25/2013 X ray : Foot, right 3V 07/06/2019 Insurance Providers Payer Name Payer Address Payer Phone Subscriber Number Group Number Insured Name Patient Relationship to Insured Coverage Start Date Coverage End Date [employer] [place] [employer] [place]age [facility] [address] [place] [address] [id number] Annette Winslow Self - patient is the insured Medical (General) History Medical History History ICD Code back, hip, knee pain sinus conditions joint implants/screws Broken bones High blood pressure Measles Mumps Chicken pox Joint implants/screws Surgical History Surgery Date(Month/Year) sinus surgery hysterectomy 1995 back surgery 2000
== END 2025-02-03 10:05 | disposition home or self-care (01) ==
LOC: HO.HKA 09:21
PROVIDERS: PCP Internal Medicine; Visit Provider Internal Medicine Nephrology
DX: I10 Essential (primary) hypertension (principal)
CPT/HCPCS: 99214

== ENCOUNTER → 2025-02-03 09:20 | Outpatient (BNVA) | payer MEDICARE, OTHER, SELFPAY | PROVIDERS: PCP Internal Medicine; Visit Provider Internal Medicine Nephrology | DX: I10 Essential (primary) hypertension (principal) | CPT/HCPCS: 99212 ==

== ENCOUNTER 2025-02-18 07:39 | Outpatient (REF) | payer MEDICARE, OTHER, SELFPAY ==
--- OUTSIDE RECORDS SUMMARY | 2025-02-18 07:41 | XMS_ITS | Patient Health Record ---
Author Organization [facility] Address [address] [place] [address] Care Team Providers Care Orthopaedic Nurse Name Role Phone Jacinda PANTOJA, Deedee Primary Care Provider David Miller Unavailable [phone] Allergies No Known Allergies Reason For Referral No Information Medications Medication SIG (Take, Route, Frequency, Duration) Notes Start Date End Date Status Tylenol PRN Active amLODIPine Besylate 2.5 MG Oral for 90 Active Lisinopril 5 MG Oral for 30 Ac tive Estradiol 0.5 MG Oral for 30 A ctive Vitamin D 25 MCG (1000 UT) Orally Active Rosuvastatin Calcium 5 MG Orally Once a day Active Ibuprofen PRN Active Immunizations Vaccine Route Administration Date Status Comme nts Influenza Unknown 05/17/2020 Administered Influenza Unknown 05/28/2023 Administered Problems Problem Type SNOMED Code ICD Code Onset Dates Problem Status W/U Status Risk Notes Problem Screening colonoscopy (343453246) Encounter for screening colonoscopy (Z12.11) Active confirmed Problem History of adenomatous polyp of colon (982664247) History of adenomatous polyp of colon (Z86.010) Active confirmed Problem Constipation (12293212) Constipation (K59.00) Active confirmed Problem Abdominal bloating (079127604) Abdominal bloating (R14.0) Active confirmed Problem Preprocedural examination (104379518379453) Preprocedural examination (Z01.818) Active confirmed Plan Of Treatment Future Test Test Name Order Date COLONOSCOPY 02/09/2015 COLONOSCOPY 05/31/2020 Insurance Providers Payer Name Payer Address Payer Phone Subscriber Number Group Number Insured Name Patient Relationship to Insured Coverage Start Date Coverage End Date [facility] [address] [facility] [place] [phone] [id number] REXLAURAYN Self - patient is the insured [facility] [address] [address] [place] [address] [id number] ASHANTINICOLETTECOLIN Self - patient is the insured Medical (General) History Medical History History ICD Code Screening Colonoscopy 6- 003--1 tubular adenoma with moderated dysplasia removed--also noted to have internal and external hemorrhoids. Denies PR,DM,CVA,Lung disease,renal dise ase Hyperlipidemia HTN Hypothyroidism Back pain--now having RFA procedures for the back and nerve pain COVID pneumonia in 10/2019 wi th subsequent longhauler symptoms--cough, facial nerve pain, SOB, sweats Neg colonoscopy in 2014 Negative screening colonoscopy in 2020 Chronic constipation Surgical History Surgery Date(Month/Year) Back surgery JONAH Surgery for a deviated septum Nodule removal from throat on vocal cord s Trigeminal neuralgia surgery
--- OUTSIDE RECORDS SUMMARY | 2025-02-18 07:41 | XMS_ITS | Patient Health Record ---
Author Organization [facility] Address [address] [place] [address] Care Team Providers Care Graphics Edit Technician Name Role Phone Jacinda PANTOJA, Deedee Andersen Primary Care Provider Un available Lavon Sims Unavailable [phone] Allergies Allergen (clinical drug ingredient) Drug/Non Drug Allergy documented on EMR Reaction Allergy Type Onset Date Status meperidine demerol (uncoded) nausea and vomiting Allergy Active Reason For Referral No Information Medications Medication SIG (Take, Route, Frequency, Duration) Notes Start Date End Date Status Lisinopril 20 MG 1 tablet Orally Once a day; Duration: 30 day(s) 06/02/2019 Active hydroCHLOROthiazide 12.5 MG 1 capsule in the morning Orally Once a day; Duration: 30 day(s) 06/02/2019 Active Night Splint AFO - L1930 as directed 07/06/2019 Active Simvastatin 20 MG 1 tablet in the evening Orally Once a day; Duration: 30 day(s) Not-Taking Pravastatin Sodium A ctive Estradiol 0.5 MG 1 tablet Orally Daily for Three Weeks, 1 Week off; Duration: 30 day(s) Not-Taking Levothyroxine Sodium 25 MCG 1 tablet on an empty stomach in the morning Orally Once a day; Duration: 30 day(s) 06/02/2019 Active Social History Tobacco [...] Date Health [place] Medicare Advantage [address] [facility] [address] [facility] [place] [id number] Annette Winslow Self - patient is the insured Medical (General) History Medical History History ICD Code back, hip, knee pain sinus conditions joint implants/screws Broken bones High blood pressure Measles Mumps Chicken pox Joint implants/screws Surgical History Surgery Date(Month/Year) sinus surgery hysterectomy 1996 back surgery 2000
--- OUTSIDE RECORDS SUMMARY | 2025-02-18 07:41 | XMS_ITS | Clinical Summary ---
Author Organization [facility] Address [address] [place] [address] Phone Care Team Providers Care English Language Learner Teacher Name Role Phone Garth Monaco MD Primary Care Provider +1- [phone] Allergies No known active allergies Medications cholecalciferol (VITAMIN D-3) 25 MCG (1000 UT) capsule Take 1 capsule by mouth 1 (one) time each day Active rosuvastatin (CRESTOR) 5 MG tablet Take 1 tablet by mouth 2 (two) times a week 09/30/2020 Active co-enzyme Q-10 30 MG capsule Take 30 mg by mouth 1 (one) time each day Active estradiol (ESTRACE) 0.5 MG tablet Take 0.5 mg by mouth 1 (one) time each day 12/27/2022 Active amLODIPine (NORVASC) 2.5 MG tablet Take 1 tablet (2.5 mg total) by mouth 1 (one) time each day 90 tablet 3 01/23/2023 Active lisinopril 40 MG tablet Take 1 tablet (40 mg total) by mouth 1 (one) time each day 90 tablet 3 01/23/2023 Active Active Problems Problem Noted Date Diagnosed Date Hypertension 04/26/2021 Stage 3a chronic kidney disease 09/29/2020 Essential hypertension 09/29/2020 Family History Medical History Relation Comments Hypertension Child Heart disease Father Hypertension Father Cancer Mother Diabetes Mother Relation Status Comments Child Father Mother Social History Tobacco Use Types Packs/Day Years Used Date Smoking Tobacco: Never Smokeless Tobacco: Never Tobacco Cessation:Counseling Given: Not Answered Alcohol Use Standard Drinks/Week Comments No 0 (1 standard drink = 0.6 oz pur e alcohol) Comments Unknown Sex and Gender Information Value Date Recorded Sex Assigned at Not on file Legal Sex Female 4:53 PM EST Gender Identity Not on file Sexual Orientation Not on file Last Filed Vital Signs Vital Sign Reading Time Taken Comments Blood Pressure 120/80 01/23/2023 1:52 PM EDT Pulse 79 01/23/2023 1:37 PM EDT Temperature - - Respiratory Rate - - Oxygen Saturation 97% 04/11/2022 2:12 PM EDT Inhaled Oxygen Concentration - - Weight 71 kg (156 lb 9.6 oz) 04/11/2022 2:12 PM EDT Height 160 cm (5' 3 ) 04/11/2022 2:12 PM EDT Body Mass Index 27.74 04/11/2022 2:12 PM EDT Plan of Treatment Health Maintenance Due Date Last Done Comments Breast Cancer Screening 1951 Pneumococcal Vaccine: 50+ Ye ars (1 of 2 - PCV) 1970 Colorectal Cancer Screening: Annual FOBT 2000 Colorectal Cancer Screening: Colonoscopy 2000 Colorectal Cancer Screening: Sigmoidoscopy 2000 Influenza Vaccine (#1) 2025 Hepatitis B Vaccine Aged Out No longe r eligible based on patient's age to complete this topic Insurance [facility] Member Subscriber Plan / Payer (Ef fective 2018-Present) Name:Annette Winslow Relation to Subscriber:Self Name:Annette Winslow Payer ID:Not on file Type:Not on file Address: [address] [phone] [address] [facility] Member Subscriber Plan / Payer (Ef fective 2018-Present) Name:Annette Winslow Relation to Subscriber:Self Name:Annette Winslow Payer ID:Not on file Type:Not on file Address: [address] [phone] [address] Care Teams English Language Learner Teacher Relationship Specialty Start Date End Date Garth Monaco MD [address] [place] [address] PCP - General 08/22/20
[2025-02-18 10:58] LABS: Cholesterol 189 mg/dL (<200); HDL Cholesterol 57 mg/dL (>40); Triglycerides 112 mg/dL (<150)
[2025-02-18 11:29] LABS: Free T4 (Free Thyroxine) 0.96 ng/dL (0.71-1.85); Thyroid Stimulating Hormone 0.51 uIU/mL (0.32-4.0)
== END 2025-02-18 07:40 | disposition home or self-care (01) ==
LOC: HO.HMGCLDS 07:39
PROVIDERS: PCP Internal Medicine; Visit Provider Internal Medicine
DX: M85.852 Other specified disorders of bone density and structure, left thigh (principal); E78.5 Hyperlipidemia, unspecified; E89.40 Asymptomatic postprocedural ovarian failure; E04.2 Nontoxic multinodular goiter; R23.2 Flushing; R63.4 Abnormal weight loss
CPT/HCPCS: 36415; 80061; 82306; 82947; 84439; 84443; 86376

== ENCOUNTER 2025-03-02 08:26 | Outpatient (REF) | payer MEDICARE, OTHER, SELFPAY ==
--- NOTE | ~2025-03-02 | MM_ITS ---
EXAMINATION: MM SCREENING DIGITAL BREAST TOMOSYNTHESIS, BILATERAL CLINICAL INFORMATION: Screening. Asymptomatic. COMPARISON: Mammography: Comparison is made with available priors TECHNIQUE: Digital breast mammography with tomosynthesis is performed in both the craniocaudal and mediolateral oblique views along with computer-aided detection (CAD). FINDINGS: There are scattered areas of fibroglandular density (ACR BI-RADS breast composition Category b). There are no significant masses, abnormal calcifications, or other abnormalities. MM/MM tomosynthesis screening BI IMPRESSION: No mammographic evidence of malignancy. ASSESSMENT: BI-RADS BI-RADS 1 - Negative RECOMMENDATION: Routine annual mammography screening. 1 year F/U This examination should not preclude the clinical evaluation of a suspicious palpable abnormality. This patient's information was entered into a reminder system with a target due date for their next mammogram. Electronically signed by: Adrianne Ramirez DO 03/09/2025 02:15 PM EDT
--- NOTE | ~2025-03-02 | MM_ITS ---
EXAMINATION: DXA BONE DENSITY AXIAL HISTORY: M85.852 - Other specified disorders of bone density and structure, left ... TECHNIQUE: Visualtising Dual energy absorptiometry (DEXA) of the lumbar spine, total left hip, and femoral neck was performed. COMPARISON: Comparison is made with the prior examination dated 11/07/2018. FINDINGS: The bone mineral density of the lumbar spine is 1.225 g/cm2, corresponding to a T-score of 0.5, and a Z-score of 2.3. This is indicative of normal bone mineral density. This represents a BMD change of 3.7% compared to the prior exam. This is not statistically significant. The bone mineral density of the left total hip is 0.885 g/cm2, corresponding to a T-score of -1.0, and a Z-score of 0.7. This is indicative of normal bone mineral density. This represents a BMD change of -2.2% compared to the prior exam. This is not statistically significant. The bone mineral density of the left femoral neck is 0.831 g/cm2, corresponding to a T-score of -1.5, and a Z-score of 0.4. This is indicative of osteopenia. This represents a BMD change of 0.8% compared to the prior exam. MM/XR DEXA axial skeleton IMPRESSION: Based on bone mineral density, and according to World Health Organization (WHO) criteria, the diagnosis is consistent with osteopenia. Statistically, 68% of repeat scans fall within 1 SD (+/- 0.010 g/cm2 for AP spine L1-L4) and 1 SD (+/- 0.012 g/cm2 for femur total) FRAX is a trademark of the [employer]'s [place] for Metabolic Bone Disease, a World Health Organization (WHO) Collaborating Center. Electronically signed by: David Méndez MD 03/02/2025 09:31 AM EDT
--- OUTSIDE RECORDS SUMMARY | 2025-03-02 08:39 | XMS_ITS | Clinical Summary ---
Author Organization [facility] Address [address] [place] [address] Phone Care Team Providers Care Web Publisher Name Role Phone Garth Monaco MD Primary Care Provider [phone]- [phone] Allergies No known active allergies Medications cholecalciferol [...] patient's age to complete this topic Insurance [facility] Member Subscriber Plan / Payer (Ef fective 2018-Present) Name:Annette Winslow Relation to Subscriber:Self Name:Annette Winslow Payer ID:Not on file Type:Not on file Address: [address] [phone] [address] [facility] Member Subscriber Plan / Payer (Ef fective 2018-Present) Name:Annette Winslow Relation to Subscriber:Self Name:Annette Winslow Payer ID:Not on file Type:Not on file Address: [address] [phone] [address] Care Teams Web Publisher Relationship Specialty Start Date End Date Garth Monaco MD [address] [place] [address] PCP - General 08/22/20
--- OUTSIDE RECORDS SUMMARY | 2025-03-02 08:39 | XMS_ITS | Patient Health Record ---
Author Organization [facility] Address [address] [place] [address] Care Team Providers Care Controls Technician Name Role Phone Jacinda PANTOJA, Deedee Andersen Primary Care Provider Un available Lavon Sims Unavailable [phone] Allergies Allergen (clinical drug ingredient) Drug/Non Drug [...] Health [place] Medicare Advantage [facility] [address] [facility] [place] [id number] [phone] [id number] Annette Winslow Self - patient is the insured Medical (General) History Medical History History ICD Code back, hip, knee pain sinus conditions joint implants/screws Broken bones High blood pressure Measles Mumps Chicken pox Joint implants/screws Surgical History Surgery Date(Month/Year) sinus surgery hysterectomy 1996 back surgery 2000
--- OUTSIDE RECORDS SUMMARY | 2025-03-02 08:40 | XMS_ITS | Patient Health Record ---
Author Organization [facility] Address [address] [place] [address] Care Team Providers Care Deckhand Sponge Boat Name Role Phone Jacinda PANTOJA, Deedee Primary Care Provider David Miller Unavailable [phone] Allergies No Known Allergies Reason For Referral [...] W/U Status Risk Notes Problem Screening colonoscopy (029711366) Encounter for screening colonoscopy (Z12.11) Active confirmed Problem History of adenomatous polyp of colon (839515612) History of adenomatous polyp of colon (Z86.010) Active confirmed Problem Constipation (66134539) Constipation (K59.00) Active confirmed Problem Abdominal bloating (988210113) Abdominal bloating (R14.0) Active confirmed Problem Preprocedural examination (961850433054912) Preprocedural examination (Z01.818) Active confirmed Plan Of Treatment Future Test Test Name Order Date COLONOSCOPY 02/09/2015 COLONOSCOPY 05/31/2020 Insurance Providers Payer Name Payer Address Payer Phone Subscriber Number Group Number Insured Name Patient Relationship to Insured Coverage Start Date Coverage End Date [facility] [address] [facility] [place] [phone] [id number] REXLAURAYN Self - patient is the insured [facility] [address] [address] [place] [address] [phone] [id number] ASHANTINICOLETTECOLIN Self - patient is the insured Medical (General) History Medical History History ICD Code Screening Colonoscopy 6- 003--1 tubular adenoma with moderated dysplasia removed--also noted to have internal and external hemorrhoids. Denies AK,DM,CVA,Lung disease,renal dise ase Hyperlipidemia HTN Hypothyroidism Back [...]
== END 2025-03-02 08:27 | disposition home or self-care (01) ==
LOC: HO.MAMMO 08:26
PROVIDERS: PCP Internal Medicine; Visit Provider Internal Medicine
DX: Z12.31 Encounter for screening mammogram for malignant neoplasm of breast (principal); Z13.820 Encounter for screening for osteoporosis; Z78.0 Asymptomatic menopausal state; M85.852 Other specified disorders of bone density and structure, left thigh
CPT/HCPCS: 77063; 77067; 77080

== ENCOUNTER → 2025-03-02 08:45 | Outpatient (BNV) | payer MEDICARE, OTHER, SELFPAY | PROVIDERS: PCP Internal Medicine; Visit Provider Radiology Diagnostic Radiology | DX: E28.39 Other primary ovarian failure (principal) | CPT/HCPCS: 77080 ==

== ENCOUNTER 2025-05-05 07:46 | Outpatient (AMB) | payer MEDICARE, OTHER, SELFPAY ==
--- OUTSIDE RECORDS SUMMARY | 2025-05-05 07:50 | XMS_ITS | Clinical Summary ---
Author Organization [facility] Address [address] [place] [address] Phone Care Team Providers Care Search Engine Optimization Strategist Name Role Phone Garth Monaco MD Primary Care Provider [phone]- [phone] Allergies No known active allergies Medications cholecalciferol [...] patient's age to complete this topic Insurance [facility] Member Subscriber Plan / Payer (Ef fective 2018-Present) Name:Annette Winslow Relation to Subscriber:Self Name:Annette Winslow Payer ID:Not on file Type:Not on file Address: [address] [phone] [address] [facility] Member Subscriber Plan / Payer (Ef fective 2018-Present) Name:Annette Winslow Relation to Subscriber:Self Name:Annette Winslow Payer ID:Not on file Type:Not on file Address: [address] [phone] [address] Care Teams Search Engine Optimization Strategist Relationship Specialty Start Date End Date Garth Monaco MD [address] [place] [address] PCP - General 08/22/20
--- OUTSIDE RECORDS SUMMARY | 2025-05-05 07:50 | XMS_ITS | Patient Health Record ---
Author Organization [facility] Address [address] [place] [id number] Care Team Providers Care Container Filler Name Role Phone Jason Metzger Unavailable [phone] Leslie Barbosa Unavailable [phone] Allergies No Known Allergies Reason For Referral No Information Medications Medication SIG (Take, Route, Fr equency, Duration) Notes Start Date End Date Status amLODIPine Benzoate Active Lisinopril Active Vital Signs Heart Rate 105 /min 03/19/2025 Temperature 96.8 degrees Fahrenheit 03/19/2025 Respiratory Rate 16 /min 03/19/2025 Height-cm 160.02 cm 03/19/2025 Oximetry 98 % 03/19/2025 Blood pressure diastolic 100 mm Hg 03/19/2025 Weight-kg 62.14 kg 03/19/2025 Height 63 in 03/19/2025 Blood pressure systolic 176 mm Hg 03/19/2025 Weight 137 lbs 03/19/2025 BMI 24.27 kg/m2 03/19/2025 Encounters Encounter Location Date Provider Diagnosis [facility] [address] [place], [place] [id number] 03/19/2025 Leslie Familia COVID-19 U07.1 ; Chills (without fever) R68.83 and Nasal congestion R09.81 Assessments Encounter Date Diagnosis (ICD Code) Assessment Notes Treatment Notes Treatment Clinical Notes Section Notes 03/19/2025 Chills (without fever) (ICD-10 - R68.83) 03/19/2025 COVID-19 (ICD-10 - U07.1) Pt presents with postive at home covid test, chills, nasal congestion, and dry cough x5 days. She is seeking paxlovid today. Due to length of time we discussed the minimal benefit vs increased risks and that paxlovid is not recommended at this time. Exam is remarkable for dry cough and excessive tearing. Lung jose are clear. Will treat with tessalon perles and steroid pack. Pt is flying home to [place] tomorrow and will follow up with her PCP. Encouraged otc therapies such as tylenol, hydration, otc cough syrups, and rest. Pt states agreement of care plan and all questions answered. 03/19/2025 Nasal congestion (ICD-10 - R09.81) Plan Of Treatment No Information Insurance Providers Payer Name Payer Address Payer Phone Subscriber Number Group Number Insured Name Patient Relationship to Insured Coverage Start Date Coverage End Date [facility] [address] [facility] [place] [address] [id number] COLIN GOODMAN Self - patient is the insured [employer] [place] [address] [facility] [place]A ALFREDO [id number] COLIN GOODMAN Self - patient is the insured [facility] MISS[employer] ACT [address] [place] [address] [id number] COLIN GOODMAN Self - patient is the insured Medical (General) History Medical History History ICD Code hypertension
--- OUTSIDE RECORDS SUMMARY | 2025-05-05 07:50 | XMS_ITS | Patient Health Record ---
Author Organization [facility] Address [address] [address] Care Team Providers Care Sheriff'S Officer Name Role Phone Jacinda PANTOJA, Deedee Andersen Primary Care Provider Un available Lavon Sims Unavailable [phone] Allergies Allergen (clinical drug ingredient) Drug/Non Drug [...] Date Health [place] Medicare Advantage One [facility] [address] [facility] [place] [id number] Annette Winslow Self - patient is the insured Medical (General) History Medical History History ICD Code back, hip, knee pain sinus conditions joint implants/screws Broken bones High blood pressure Measles Mumps Chicken pox Joint implants/screws Surgical History Surgery Date(Month/Year) sinus surgery hysterectomy 1996 back surgery 2000
--- OUTSIDE RECORDS SUMMARY | 2025-05-05 07:50 | XMS_ITS | Patient Health Record ---
Author Organization [facility] Address [address] [place] [address] Care Team Providers Care Switchboard Installer Name Role Phone Jacinda PANTOJA, Deedee Primary Care Provider David Miller Unavailable [phone] Allergies No Known Allergies Reason For Referral [...] W/U Status Risk Notes Problem Screening colonoscopy (808417715) Encounter for screening colonoscopy (Z12.11) Active confirmed Problem History of adenomatous polyp of colon (675833128) History of adenomatous polyp of colon (Z86.010) Active confirmed Problem Constipation (61132399) Constipation (K59.00) Active confirmed Problem Abdominal bloating (290870370) Abdominal bloating (R14.0) Active confirmed Problem Preprocedural examination (547864948449358) Preprocedural examination (Z01.818) Active confirmed Plan Of Treatment Future Test Test Name Order Date COLONOSCOPY 02/09/2015 COLONOSCOPY 05/31/2020 Insurance Providers Payer Name Payer Address Payer Phone Subscriber Number Group Number Insured Name Patient Relationship to Insured Coverage Start Date Coverage End Date [facility] [address] [facility] [place] [phone] [id number] REXLAURAYN Self - patient is the insured [facility] [address] [address] [place] [id number] ASHANTINICOLETTECOLIN Self - patient is the insured Medical (General) History Medical History History ICD Code Screening Colonoscopy 6- 003--1 tubular adenoma with moderated dysplasia removed--also noted to have internal and external hemorrhoids. Denies [place],DM,CVA,Lung disease,renal dise ase Hyperlipidemia HTN Hypothyroidism Back [...]
--- NOTE | 2025-05-05 08:01 | MHC.PC.OV ---
Vital Signs 05/05/25 08:03 Height 5 ft 3 in Weight 135 lb BMI 23.9 BP 110/64 Blood Pressure Location Rt brachial Position Sitting Respiration 16 Pulse 79 Pulse Source Pulse Oximeter Temp 98.0 F Temp Source Oral Pulse Oximetry (%) 98 Oxygen Delivery Method Room Air Intake Visit Reasons: PE - see comments Intake Note: Pt is here today for her PE: Last mammogram 03/02/25, bone density scan 03/02/25, colonoscopy 08/17/20 Allergies fentanyl Adverse Reaction (Severe, Verified 05/05/25 08:52) severe nausea simvastatin Adverse Reaction (Unknown, Verified 05/05/25 08:52) muscle pain ENVIRONMENTAL Allergy (Intermediate, Uncoded 05/05/25 08:52) HAYFEVER Medication List - Last Reconciled 05/05/25 by Deedee Monaco MD amlodipine 2.5 mg PO DAILY cholecalciferol (vitamin D3) 2,000 units PO DAILY coenzyme Q10 (CoQ-10) 400 mg PO DAILY estradiol 0.5 mg PO DAILY 30 days ketoconazole 2% 1 appl topical DAILY 10 days lisinopril 40 mg PO DAILY rosuvastatin 5 mg PO 3XW sennosides-docusate sodium 8.6-50 mg (Senokot-S) 1 tab-cap PO BEDTIME Tobacco use date assessed: 05/05/25 Last assessed Fall Risk: 05/05/25 Dental Screening Dental Screen Date: 05/05/25 Did you have a dental visit in the last 12 months?: Yes Did you have a dental problem in the last 6 months where you did not have access to dental care?: No Was dental information given to patient?: Patient has dentist HPI PE - see comments HPI Details The patient is a 75-year-old female exam. Up-to-date with her breast cancer screening and osteoporosis screening, last done February 2025 with benign findings and presence of unchanged osteopenia in left femoral neck. The patient reports a weight loss of approximately 6 pounds over the past few months, with her weight decreasing from 141 to 135 pounds. She notes that she feels full after consuming only a few bites of food, which has contributed to her reduced intake. Historically, her weight was around 155 pounds, and she has not been attempting to lose weight. Denies any fever, no fatigue, no abdominal pain, no heartburn issues, no blood in the stool. She has chronic constipation, for which she takes stool softeners and stimulants daily. She has a family history of colon cancer, and her last colonoscopy revealed diverticulosis and hemorrhoids Last colonoscopy was done 2020 which showed presence of diverticulosis and hemorrhoids, repeat due again next year with Dr. Gr The patient has been experiencing severe hot flashes that disrupt her sleep, . She has been on estradiol, which has been helping, but she feels the effectiveness is waning as the hot flashes are occasionally beginning to break through the medication.. Additionally, she experiences leg cramps and has a sensitivity to sunlight, which she associates with a past COVID-19 infection. She is concerned about the potential side effects of her current medications, including rosuvastatin, which she takes twice a week. She has up to date with vaccinations such as COVID-19, flu, shingles, Tdap, pneumonia vaccination, and RSV, but has not yet had her Prevnar 21 vaccines [facility] Medical History Rash and nonspecific skin eruption Non-toxic multinodular goiter History of COVID-19 Postmenopausal syndrome (~11/2022) Chronic kidney disease, stage III (moderate) Lumbar degenerative disc disease Uterine fibroid Osteopenia of left hip Trigeminal neuralgia Surgical menopause Essential hypertension Dyslipidemia Surgical History Hx of brain surgery Vocal cord cyst History of deviated nasal septum History of back surgery H/O total hysterectomy with bilateral salpingo-oophorectomy (BSO) Family History Father HTN (hypertension) Heart disease DDD (degenerative disc disease) Myocardial infarction Mother Diabetes mellitus Colon cancer Arthritis Hot flashes Daughter Papillary thyroid carcinoma Paternal Aunt CVD (cardiovascular disease) History of heart attack Son No problems noted. Daughter No problems noted. Brother Substance use disorder Brother Substance use disorder Brother Substance use disorder Sister No problems noted. Sister No problems noted. Sister No problems noted. Sister No problems noted. Sister No problems noted. Social History Household Members: Spouse Housing: House Alcohol intake: never Comment: soreness Patient Tobacco Use Status: Never used Tobacco e-Cigarette/Vaping Use: Never Used Second Hand Smoke Exposure: No Advance Directives Date on File: 03/08/21 service: No Current occupational status: retired Cognitive needs: No Hearing needs: No Vision needs: No Female Reproductive History Menstrual Menopause type: surgical Questionnaire PHQ-9 Over the last 2 weeks, how often have you been bothered by any of the following problems? 1. Little interest or pleasure in doing things: not at all 2. Feeling down, depressed, or hopeless: not at all 3. Trouble falling or staying asleep, or sleeping too much: not at all 4. Feeling tired or having little energy: not at all 5. Poor appetite or overeating: not at all 6. Feeling bad about yourself - or that you are a failure or have let yourself or your family down: not at all 7. Trouble concentrating on things, such as reading the newspaper or watching television: not at all 8. Moving or speaking so slowly that other people could have noticed. Or the opposite - being so fidgety or restless that you have been moving around a lot more than usual: not at all 9. Thoughts that you would be better off or of hurting yourself in some way: not at all Total score: 0 Depression Screening Interpretation: Negative Depression Screening Done: Yes 35642 - PHQ-9 Billing: Yes Source: Developed by Drs. David Jay, Madeline Lopez, Norbert Basilio and colleagues, with an educational stephon from [employer]. Thrive Questionnaire Date Thrive assessed: 05/02/25 I am a: Patient What is your living situation today?: I have a steady place to live Within the past 12 months, did the food you bought not last and you didn't have the money to get more?: Never true Within the past 12 months, did you worry whether your food would run out before you got money to buy more?: Never true Do you have trouble paying for medicines?: No Do you have trouble getting transportation to medical appointments?: No Do you have trouble paying your heating and electricity bill?: No Do you have trouble taking care of your child, family member or friend?: No Do you have trouble with day-to-day activities such as bathing, preparing meals, shopping, managing finances, etc.?: No Are you currently unemployed and looking for a job?: No Are you interested in more education?: No Please select the resources that you would like help with: None Currently or been in a relationship where the following occur: No concerns reported THRIVE Score: 0 AUDIT C Alcohol Use Questionnaire (AUDIT-C) 1. How often do you have a drink containing alcohol?: Never 2. How many drinks containing alcohol do you have on a typical day when you are drinking?: 1 or 2 3. How often do you have six or more drinks on one occasion?: Never Total Score: 0 Score Reviewed/Action Taken: Yes BELINDA-7 AMB Questionnaire BELINDA-7 Date BELINDA - 7 assessed: 05/15/23 Feeling nervous, anxious, or on edge: 0 = Not at all Not being able to stop or control worryin = Not at all Worrying too much about different things: 0 = Not at all Trouble relaxin = Not at all Being so restless that it is hard to sit still: 0 = Not at all Becoming easily annoyed or irritable: 0 = Not at all Feeling afraid as if something awful might happen: 0 = Not at all Total BELINDA-7 score (0-4 normal; 5-9 mild; 10-14 moderate; 15-21 severe): 0 Source: Developed by Drs. David Jay, Madeline Lopez, Norbert Basilio and colleagues, with an educational stephon from [employer]. BELINDA-7 Assessment Billing BELINDA-7 Assessment Tool: BELINDA-7 Assessment 05119 Review of Systems Const Denies fatigue and Denies headache(s) Eyes Details: sees Dr Patrick Denies change in vision ENT Reports Normal hearing present, Denies dysphagia and Denies headache(s) Card Denies chest pain, Denies irregular heart rhythm and Denies dyspnea Resp Denies cough and Denies dyspnea GI Denies abdominal pain, Denies change in bowel habits, Denies dysphagia and Denies nausea Reports no additional complaints Musc Denies numbness and Denies tingling Skin/Breast Denies breast pain, Denies breast mass and Denies rash Neuro Reports Normal hearing present, Denies headache(s), Denies numbness, Denies Sensory deficit (Neuro) and Denies tingling Psych Denies anxiety and Denies depression Endo Denies fatigue, Denies polyphagia and Denies polydipsia Sandoval/Lymph Denies easy bruising Aller/Immun Reports no additional complaints Physical exam (Primary Care) Vital Signs: Last Vital Signs Temp 98.0 F 05/05/25 08:03 Pulse 79 05/05/25 08:03 Resp 16 05/05/25 08:03 BP 110/64 05/05/25 08:03 Pulse Ox 98 05/05/25 08:03 Oxygen Delivery Method Room Air 05/05/25 08:03 BMI result Body Mass Index 23.9 Tobacco/Smoking Status: Tobacco use Status Tobacco use date assessed 05/05/25 05/05/25 08:11 Patient Tobacco Use Status Never used Tobacco 05/05/25 08:11 e-Cigarette/Vaping Use Never Used 05/05/25 08:11 PHQ-9: PHQ-9 Score PHQ-9: Total score 0 05/05/25 08:11 Depression Screening Interpretation: Negative Thrive Assessment: Date of Thrive Assessment Date Thrive assessed 05/02/25 05/05/25 08:11 Currently or been in a relationship where the following occur: No concerns reported Const Other: Pleasant, no acute cardiorespiratory distress noted, ambulatory with normal gait HENMT Other: Normocephalic atraumatic, no active nasal drainage, mouth and oropharynx are within normal limits, moist oral mucosa seen Eyes General: appearance normal, both eyes and all related structures Neck Neck: Yes full ROM, Yes no lymphadenopathy and Yes supple Chest Chest palpation & inspection: normal inspection of the chest Breast/axilla palpation: normal palpation of the breasts Resp Effort & Inspection: normal respiratory effort and able to speak in complete sentences Auscultation: clear to auscultation bilaterally Cardio Other: S1-S2 present regular rate and rhythm GI Other: Normal bowel sounds, soft, nontender, no mass palpated General: Yes deferred (hx of JONAH-BSO for uterine fibroids) Back/Spine/Pelvis Back: No back tenderness Skin General skin exam: no rashes or lesions noted Neuro Cranial nerves: Yes Normal hearing present Sensory Exam: No Sensory deficit (Neuro) Extrem General: Yes full ROM, Yes no joint enlargement, Yes no pedal edema, Yes no calf tenderness and Yes normal gait Psych Appearance: grossly normal Mental Status: mental status grossly normal Speech and movement: Normal speech and movement present Affect: normal affect Results Reviewed Results Reviewed: Name: Annette Winslow Age/Sex: 74/F [facility] 1950 [id number]#: [id number] Attend Dr: Deedee Monaco MD Re02/18/25 Status: DEP [facility]F [facility] Disch: SPEC : [id number] DENISHA: 02/18/25 STATUS: COMP REQ : [id number] RECD: 02/18/[address]: Deedee Monaco MD COMP: 02/18/25 ENTERED: 02/18/[address]: ORDERED: Glu Fasting, Lipid Panel, Vitamin D 25-OH, Free T4, TSH Test Result Flag Reference FBS 92 60-99 mg/dL Triglyceride 112 <150 mg/dL Desirable Triglyceride: less than 150 mg/dL Borderline High Triglyceride 150-199 mg/dL High Triglyceride: 200-499 mg/dL Very High Triglyceride: greater than or equal to 5OO mg/dL Cholesterol 189 <200 mg/dL Desirable Cholesterol: less than 200 mg/dL Borderline High Cholesterol: 200-239 mg/dL High Cholesterol: greater than 239 mg/dL LDL Calculated 110 H <100 mg/dL Desirable LDL: less than 100 mg/dL Near Optimal/Above Optimal LDL: 110-129 mg/dL Borderline High LDL: 130-159 mg/dL High LDL: 160-189 mg/dL Very High LDL: greater than or equal to 190 mg/dL HDL 57 >40 mg/dL Desirable HDL: greater than 40 mg/dL Note: This HDL assay may give artificially low results in patients with liver disease. Vitamin D 25-OH 53.1 >30 ng/mL Health Based Reference Values* < 20 ng/mL Deficient 20-30 ng/mL Insufficient > 30 ng/mL Sufficient *Dann RODGERS. N Engl J Med. 2007;357:266-280 There is no well-established upper level of normal vitamin D levels. Some laboratories use 50 ng/mL as an upper limit of normal. However, toxicity is patient-dependent and may occur at any level. Careful correlation with the patient's presentation is necessary and, if there is concern for vitamin D toxicity, treatment should be considered irrespective of the serum level. Care must be taken in interpreting Vitamin D results from different laboratories and methodologies. Published data demonstrated that results from patients undergoing hemodialysis may show a negative bias when tested with various automated 25-OH vitamin D assays when compared to LC-MS/MS. When testing samples from patients whose predominant form of Vitamin D is Vitamin D2, such as patients receiving Vitamin D2 supplementation, results that are subtherapeutic should be confirmed with another method such as LC-MS/MS. Free T4 0.96 0.71-1.85 ng/dL TSH 3rd Gen. 0.51 0.32-4.0 uIU/mL TSH 3rd Generation ([facility]) Coding Level of Care Code Est Pt Prev Care >65y(70345) Diagnoses Annual visit for general adult medical examination with abnormal findings Z00. Essential hypertension I10 Dyslipidemia E78.5 Non-toxic multinodular goiter E04.2 Chronic kidney disease, stage III (moderate) N18.30 Postmenopausal syndrome N95.1 Osteopenia of left hip M85.852 Unintentional weight loss R63.4 Nocturnal leg cramps G47.62 Additional Codes BELINDA-7 Assessment Billing - BELINDA-7 Assessment Tool: BELINDA-7 Assessment 52498 ([id number]) PHQ-9 - 47281 - PHQ-9 Billing: Yes ([id number]) Assessment & Plan Assessment & Plan (1) Annual visit for general adult medical examination with abnormal findings: Code(s): Z00.01 - Encounter for general adult medical examination with abnormal findings Plan: Fasting lab results reviewed with patient. Continue with regular dental visit every 6 months and regular eye exams, sees Dr. Patrick.. Take adequate calcium in diet and vitamin-D 3 at 2000 IU per cap once a day, in addition to weight-bearing exercises to help maintain good muscle tone and weight control. Instructed to do self-breast exam, and continue with yearly mammogram, bone density scan done this year, repeat again in 2026. Up-to-date with all her vaccinations. Due for a repeat colonoscopy screening with Dr. Gr next year (2) Essential hypertension: Code(s): I10 - Essential (primary) hypertension Category: Medical Plan: Blood pressure at goal of less than 130/80. Continue with current medication. Reinforced importance of following a low sodium diet, getting regular exercise, and lowering stress levels. (3) Dyslipidemia: Code(s): E78.5 - Hyperlipidemia, unspecified Category: Medical Plan: Fasting lipids are within normal limits, will continue on Co Q10 plus rosuvastatin 5 mg taken only twice a week now (4) Non-toxic multinodular goiter: Comment: Followed by Dr. Cook Code(s): E04.2 - Nontoxic multinodular goiter Category: Medical Plan: Thyroid levels are within normal limits, thyroid gland nonpalpable on exam (5) Chronic kidney disease, stage III (moderate): Comment: Followed by Dr. Joyce Code(s): N18.30 - Chronic kidney disease, stage 3 unspecified Category: Medical Plan: Followed by Dr. Silva, continued on amlodipine and lisinopril, avoidance of NSAIDs (6) Postmenopausal syndrome: Onset Date: ~11/2022 Code(s): N95.1 - Menopausal and female climacteric states Category: Medical Plan: he patient experiences severe hot flashes despite being on estradiol. Consideration for adjusting the dosage or exploring alternative therapies may be warranted to improve symptom control if symptoms persists. Will wait until after the winter season to see if this needs to be adjusted, (7) Osteopenia of left hip: Code(s): M85.852 - Other specified disorders of bone density and structure, left thigh Category: Medical Plan: Continue taking calcium and vitamin-D 3 supplements, do regular weight-bearing exercise. Repeat another bone density scan in 2026. (8) Unintentional weight loss: Code(s): R63.4 - Abnormal weight loss Plan: reports a significant decrease in weight without trying, which may be related to reduced food intake due to early satiety. Further evaluation is needed to rule out underlying causes, including gastrointestinal issues or metabolic disorders. Has an appointment to see Dr. Gr next year for her repeat colonoscopy. Latest labs showed normal thyroid levels (9) Nocturnal leg cramps: Code(s): G47.62 - Sleep related leg cramps Plan: She has decreased her rosuvastatin dosing frequency to twice a week, but does not notice much improvement. Will try [id number] magnesium supplements to see if this will help relieve leg cramps
[2025-05-05 08:03] VITALS: BP 110/64; PULSE 79; RESP 16; TEMP 36.7; O2SAT 98; BMI 23.9
== END 2025-05-05 08:50 | disposition home or self-care (01) ==
LOC: HO.HMCC 07:47
PROVIDERS: PCP Internal Medicine; Visit Provider Internal Medicine
DX: Z00.01 Encounter for general adult medical examination with abnormal findings (principal); I12.9 Hypertensive chronic kidney disease with stage 1 through stage 4 chronic kidney disease, or unspecified chronic kidney disease; N18.30 Chronic kidney disease, stage 3 unspecified; E78.5 Hyperlipidemia, unspecified; E04.2 Nontoxic multinodular goiter; N95.1 Menopausal and female climacteric states; M85.852 Other specified disorders of bone density and structure, left thigh; R63.4 Abnormal weight loss; G47.62 Sleep related leg cramps

== ENCOUNTER → 2025-05-05 07:46 | Outpatient (BNVA) | payer MEDICARE, OTHER, SELFPAY | PROVIDERS: PCP Internal Medicine; Visit Provider Internal Medicine | DX: Z00.01 Encounter for general adult medical examination with abnormal findings (principal); I12.9 Hypertensive chronic kidney disease with stage 1 through stage 4 chronic kidney disease, or unspecified chronic kidney disease; N18.30 Chronic kidney disease, stage 3 unspecified; N95.1 Menopausal and female climacteric states; R25.2 Cramp and spasm; E78.5 Hyperlipidemia, unspecified; E04.2 Nontoxic multinodular goiter; M85.852 Other specified disorders of bone density and structure, left thigh; R63.4 Abnormal weight loss; G47.62 Sleep related leg cramps | CPT/HCPCS: 96127; 99397 ==